=== PATIENT | male | born 1950 | race Caucasian/White ===

== ENCOUNTER → 2017-05-09 | Outpatient (CLI) | payer OTHER ==
--- NOTE | 2017-05-09 16:22 | DIAGNOSTIC IMAGING REPORT ---
RIGHT KNEE 2 VIEWS CLINICAL HISTORY: Right knee pain. FINDINGS: AP and lateral views of the right knee are obtained. No prior studies are available for comparison at the time of dictation. The skeletal structures are osteopenic. No fracture is seen. There is mild to moderate tricompartmental degenerative joint space narrowing, greatest in the medial compartment. There are patellar enthesophytes. No large joint effusion is seen. Prepatellar soft tissue edema is noted. There is atherosclerotic calcification of the popliteal artery. IMPRESSION: 1. Prepatellar soft tissue swelling with no acute bony abnormality seen in the right knee. 2. Osteopenia and degenerative change as above. Electronically signed by: Kevin Villavicencio M.D. 05/09/2017 4:21 PM Dictated Date/Time: 05/09/2017 4:20 PM
== END | disposition home or self-care (01) ==
LOC: C.RADBC 15:56
PROVIDERS: ATTEND Neuromusculoskeletal Medicine & OMM
DX: M25.561 Pain in right knee (principal)

== ENCOUNTER → 2017-05-09 | Outpatient (CLI) | payer OTHER ==
[~2017-05-09] VITALS: Ht 162.6 cm; Wt 67.2 kg
[2017-05-09 15:48] VITALS: BP 120/68; PULSE 80; Ht 162.6 cm; Wt 67.2 kg
== END | disposition home or self-care (01) ==
LOC: C.NEUR 13:50
PROVIDERS: ATTEND Physician Assistant Medical
DX: G47.33 Obstructive sleep apnea (adult) (pediatric) (principal)

== ENCOUNTER → 2017-05-10 | Outpatient (CLI) | payer OTHER ==
[2017-05-10 13:21] LABS: BASO % 0.4 %; BASO ABS # 0.02 K/uL (0-0.2); COMPLETE YES; EOS % 2.3 %; HEMATOCRIT 41.8 % (42-52); IG% 0.2 %; LYMPH % 32.6 %; LYMPH ABS # 1.83 K/uL (1.2-3.4); MEAN CORPUSCULAR HEMOGLOBIN 31.6 pg (25-34); MEAN CORPUSCULAR HGB CONC 31.6 g/dl (32-36); MEAN PLATELET VOLUME 10.4 fL (7.4-10.4); NEUT % 56.5 %; PLATELET COUNT 184 K/uL (130-400); RED BLOOD COUNT 4.18 M/uL (4.7-6.1); WHITE BLOOD COUNT 5.62 K/uL (4.8-10.8)
[2017-05-10 14:08] LABS: ALT/SGPT 24 U/L (12-78); BLOOD UREA NITROGEN 20 mg/dl (7-18); BUN/CREATININE RATIO 14.3 (10-20); CALCIUM 9.1 mg/dl (8.5-10.1); CARBON DIOXIDE 25 mmol/L (21-32); CHLORIDE 111 mmol/L (98-107); CHOLESTEROL 137 mg/dl (0-200); CREATININE 1.36 mg/dl (0.60-1.40); GLUCOSE 84 mg/dl (70-99); POTASSIUM 3.7 mmol/L (3.5-5.1); SODIUM 143 mmol/L (136-145)
[2017-05-10 14:11] LABS: ALB/GLOB RATIO 1.2 (0.9-2); ALKALINE PHOSPHATASE 65 U/L (45-117); AST/SGOT 19 U/L (15-37); CHOLESTEROL/HDL RATIO 1.7; HDL CHOLESTEROL 81 mg/dl; LDL CHOLESTEROL CALCULATED 34 mg/dl; TRIGLYCERIDES 109 mg/dl (0-150); VERY LOW DENSITY LIPOPROT CALC 22 mg/dl
== END | disposition home or self-care (01) ==
LOC: C.LABBC 11:08
PROVIDERS: ATTEND Neuromusculoskeletal Medicine & OMM
DX: Z00.00 Encounter for general adult medical examination without abnormal findings (principal); E78.5 Hyperlipidemia, unspecified; D64.9 Anemia, unspecified

== ENCOUNTER → 2017-05-16 | Outpatient (CLI) | payer OTHER ==
--- NOTE | 2017-05-16 15:44 | DIAGNOSTIC IMAGING REPORT ---
R HAND MIN 3 VIEWS ROUTINE CLINICAL HISTORY: M25.561 Acute pain of right hand 79.899 Long-term use of immunosuppressives COMPARISON: None. DISCUSSION: No acute fractures or dislocations are visualized. There are mild osteoarthritic changes. There are no erosive or destructive changes. IMPRESSION: 1. No acute fractures 2. Mild osteoarthritis 3. No evidence of erosive disease Electronically signed by: Marco Antonio Farris M.D. 05/16/2017 3:43 PM Dictated Date/Time: 05/16/2017 3:42 PM
--- NOTE | 2017-05-16 16:33 | DIAGNOSTIC IMAGING REPORT ---
L HAND MIN 3 VIEWS ROUTINE CLINICAL HISTORY: Long-term use of immunosuppressant medication. COMPARISON: None FINDINGS: Carpal bones are intact. A 7 mm lucent focus within the distal aspect of the middle phalanx of the left second digit is noted. This could reflect a subchondral cyst. No erosions are identified. There is moderate joint space narrowing with osteophytosis within multiple articulations of left hand, most pronounced within the left second digit DIP joint. IMPRESSION: 1. No acute fracture. 2. Moderate osteoarthritis within multiple articulations of the left hand, most pronounced within the left second digit DIP joint. 3. No radiographic evidence of an erosive arthropathy. Electronically signed by: Ramón Lorenzo M.D. 05/16/2017 4:32 PM Dictated Date/Time: 05/16/2017 4:29 PM
--- NOTE | 2017-05-17 09:27 | CODING QUERY MEDICAL NECESSITY ---
SUPPORTING DIAGNOSIS NEEDED : 1950 A supporting diagnosis is required for the test/procedure performed on this patient in order for us to be reimbursed by the patient's insurance. Please provide a supporting diagnosis for the following test/procedure listed below next to the test name along with your signature. *If there is no additional diagnosis for this patient that would support the following test/procedure please document that below next to the test/procedure. Test(s)/Procedure(s) that require a supporting diagnosis: DOS: 05/16/17 * HAND MIN 3 VIEWS, B/L DIAGNOSIS: Provider Signature: Date: Thank you Kely Osborn Health Information Management Once completed, please kindly fax back to [phone] For questions please call [phone]
== END | disposition home or self-care (01) ==
LOC: C.RAD1850 15:00
PROVIDERS: ATTEND Internal Medicine Rheumatology
DX: M25.561 Pain in right knee (principal); Z79.899 Other long term (current) drug therapy; M19.042 Primary osteoarthritis, left hand; M06.9 Rheumatoid arthritis, unspecified

== ENCOUNTER → 2017-05-30 | Outpatient (CLI) | payer OTHER ==
[~2017-05-30] MED LIST: ACET-1325; ADAL40KI; ATOR-22 PO; B-CO1CAP3; CARI350T28 PO; CHOL2000 PO; CHOL4POW4; COEN1CAP7; COEN400C5; CYCL0.052 OP; FLM4 PO; FOLI1TAB7 PO; GABA-113 PO; IBAN150T PO; LEUC10TA2 PO; LUTE20CA; METH0.4I2; MULT-663; OMEG10007 PO; OXYC1TAB3 PO; PARO1TAB27 PO; PRD/1 PO; PRLSR20 PO; VRPSR240
== END | disposition home or self-care (01) ==
LOC: C.LABBC 12:28
PROVIDERS: ATTEND Urology
DX: N40.0 Benign prostatic hyperplasia without lower urinary tract symptoms (principal)

== ENCOUNTER → 2017-06-05 | Outpatient (CLI) | payer OTHER ==
--- NOTE | 2017-06-06 06:12 | PAP/PSG TECHNICIAN REPORT ---
[facility] Stratigrapher Polysomnogram Report Study name: None Report date: 06/06/2017 Study date: 06/05/2017 Referring Physician: Amrita Solomon PA-C Name: NAV WAHL Interpreting Physician: Ravin Hallman M.D. Date of : 1950 Stratigrapher: Deonte Storey RPSGT. Sex: Male Age: 67 StudyType: PSG PAP Weight: 148 lbs Height: 67 years, Height 5' 4" BMI: 25.4 Medications: ATORVASTATIN CALCIUM 20 MG, CALTRATE 600 MG, CARISOPRODOL 350 MG, CHOLESTYRAMINE, CO Q-10 400 MG, DICLOFENAC SODIUM, FOLIC ACID 1 MG, GABAPENTIN 600 MG, HUMIRA 10 MG, OMEPRAZOLE 20 MG, OTREXUP 20 MG, OXYCODONE HCL 10 MG, PAROXETINE HCL 20 MG, PREDNISONE 20 MG, TAMSULOSIN HCL 0.4 MG, VERAPAMIL HCL ER 240 MG Patient History PATIENT HAS HISTORY OF IBS, ANXIETY, GLAUCOMA, RETINAL VASCILITIS, BPH AND ANEMIA. PATIENT HAD A HOME SLEEP STUDY DONE IN NOVEMBER OF 2016 THAT SHOWED MILD SLEEP APNEA WITH AN AHI OF 10.8/HR. HE CURRENTLY WEARS AUTO CPAP BUT HAS FELT THE TREATMENT HASN'T BEEN WORKING VERY WELL. HE IS HERE TODAY FOR A CPAP TITRATION. ESS = 3 RM 1 Parameters Monitored NPSG: E1-M2, E2-M1, Fp1-M2, Fp2-M1, F3-M2, F4-M2, F4-M1, C3-M2, C4-M2, C4-M1, O1-M2, O2-M2, O2-M1, T3-M2, T4-M1, P3-M2, P4-M1, CHIN1, CHIN2, HR, EKG, Legs, PFLOW, SNOR, FLOW, CFLOW, Tidal Volume, THOR, ABDO, SpO2, PLTH, CPRESS, ETCO2 Wave, ETCO2, pH Sleep Architecture Sleep Stages Time at Lights Off 11:07:47 PM STAGES Time (min.) TST (%) Time at Lights On 5:53:17 AM Wake 149.0 -- Total Recording Time (TRT) 406.00 min. N1 7.0 3 Total Sleep Period (TSP) 279.0 min. N2 245.0 96 Total Sleep Time (TST) 256.5min. N3 4.5 2 Awake Time 149.0 min. REM 0.0 0 Wake after Sleep Onset 22.5 min. Sleep Efficiency (SE) 63 % Sleep Onset Latency (FRANCISCO) 126.5 min. Number of Stage 1 Shifts None Awakenings 6 Stage Changes 25 Number of REM periods N/A REM 0.0 0 REM Latency NONE min. NREM 256.5 100 Body Position Analysis Supine Right Left Side Prone Vertical Total Sleep Time (min.) 53.8 256.5 0.0 256.50 0.0 0.0 Total Sleep Time (%) 0% 100% 0% 100 0% N/A% Total Sleep Time REM (min.) 0.0 0.0 0.0 None 0.0 0.0 Total Sleep Time NREM (min.) 0.0 256.5 0.0 None 0.0 0.0 Intermittent Wake (min.) 53.8 86.5 8.7 None 0.0 0.0 Total Sleep Period (%) 0% None None None None None Arousals Myoclonus (PLM) * Events Count Index Events Count Index Spontaneous 22 5 Events Awake (PLMW) 239 96.2 Respiratory 1 0.2 Events Asleep w/ Arousal (PLMA) 14 3.3 PLM 14 3 Events Asleep w/o Arousal (PLMS) 75 17.5 Snoring 12 3 Total Asleep 89 20.8 Total 49 11 Total 328 49 Respiratory Analysis * CA OA MA CH H RERA Total Count 1 0 0 0 12 0 13 Index 0.2 0.0 0.0 0 2.8 0 3.0 Mean Duration 13.8 0.0 0.0 0.00 17.7 0.0 17.4 Longest Duration 13.8 0.0 0.0 0.00 0.0 0.0 27.1 Respiratory Event Summary Total Supine ~Supine Right Left Prone REM NREM Apneas Count 1 N/A 1 1 N/A N/A N/A 1 Index 0.2 N/A 0 0.2 N/A N/A N/A 0 Hypopneas (4% Desat) Count 12 N/A 12 12 N/A N/A N/A 12 Index 2.8 N/A 3 2.8 N/A N/A N/A 2.8 Apneas & All Hypopneas Count 13 N/A 13 13 N/A N/A N/A 13 Index 3.0 N/A 3 3 N/A N/A N/A 3.0 Respiratory Events (Open Cut Examiner+All Hyp+RERA) Count 13 N/A 13 13 N/A N/A N/A 13 Index 3.0 N/A 3 3.0 N/A N/A N/A 3.0 Respiratory Related Arousal Count 1 N/A 1 1 N/A N/A N/A 1 Index 0.2 N/A 0 0 N/A N/A N/A 0 Snoring Analysis Supine Right Left Prone REM NREM Total Snore duration 6.3 min Snores count N/A 220 N/A N/A N/A 220 220 Snore mean duration 1.7 Sec Snores index N/A 51 N/A N/A N/A 51.5 51.5 TST with snoring (%) 2.4% Desaturation Event Summary: Minimum %SpO2 Event Count Mean/Min/Max Duration(sec.) Desaturation Index % Time In Bed > 90 49 27.6 / 5.3 / 70.1 7.9 96.1 86 - 90 3 15.3 / 12.8 / 17.3 13.5 3.5 81 - 85 0 N/A 0.0 0.3 76 - 80 0 N/A 0.0 0.0 71 - 75 1 11.0 / 11.0 / 11.0 293.9 0.1 66 - 70 0 N/A 0.0 0.0 61 - 65 0 N/A 0.0 0.0 56 - 60 0 N/A 0.0 0.0 51 - 55 0 N/A 0.0 0.0 < 50 0 N/A 0.0 0.0 Total REM NREM Awake <50% 0.0 min. 0.0 min. 0.0 min. 0.0 min. 51 - 60% 0.0 min. 0.0 min. 0.0 min. 0.0 min. 61 - 70% 0.0 min. 0.0 min. 0.0 min. 0.0 min. 71 - 80% 0.4 min. 0.0 min. 0.0 min. 0.4 min. 81 - 90% 14.6 min. 0.0 min. 1.2 min. 13.4 min. 91 - 100% 370.1 min. 0.0 min. 255.3 min. 114.8 min. Average 94 0 94 94 Minimum SpO2 73 N/A 89 73 Desaturation Event Index 7.4 0.0 3.0 14.9 # Desat. Events below 89% 9 N/A N/A 9 Time(%) with Saturation below 89% 1.2 0.0 0.0 1.2 Time(min.) with Saturation below 89% 4.7 0.0 0.0 4.7 Time (mins) REM (mins) NREM (mins) % of TST SpO2 Below 90% 2 N/A N2 0.1 SpO2 Below 88% 0 0 0 0 Heart Rate Analysis Min (bpm) Max (bpm) Average (bpm) Awake 34 300 60 NREM 54 79 63 REM N/A N/A N/A Overall 54 79 63 Supplemental O2 Values Minimum O2 level: None Value Start Time End Time Stratigrapher Comments Mr. Wahl slept in the right, left and supine positions. No cardiac arrhythmia noted. Leg movements noted. No bruxism noted. CPAP was initiated at +4 CMH2O and up-titrated to an optimal level of +5 CMH2O, which nearly eliminated all respiratory events and snoring. The patient brought in his own mask that was used during titration Mr. Wahl awoke to use the restroom 2 times during the night. Mr. Wahl stated I did not sleep as well as I do when I am in my own bed. The final report will be interpreted and signed by a sleep physician. The completed physician report will then be placed in the patient medical record. Therapy Event: Therapy (cm H20) 4 5 Total Time at Pressure (min.) 224.6 180.9 TST at Pressure (min.) 94.1 162.4 # Periods 1 1 Sleep Onset (min.) 126.5 0.0 REM Onset (min.) N/A N/A Sleep Efficiency % 41 89 Wakefulness (%) 58.1 10.2 Wakefulness (min.) 130.5 18.5 NREM 1 (%) 1.6 1.9 NREM 1 (min.) 3.5 3.5 NREM 2 (%) 38.3 87.8 NREM 2 (min.) 86.1 158.9 NREM 3 (%) 2.0 0.0 NREM 3 (min.) 4.5 0.0 REM (%) 0.0 0.0 REM (min.) 0.0 0.0 # Arousals 18 31 Arousal Index 11.5 11.5 # Snore 136 84 Snore Index 86.7 31.0 AHI 3.8 2.6 AHI Supine N/A N/A AHI Non-Supine 3.8 2.6 NREM AHI 3.8 2.6 REM AHI N/A N/A RDI 3.8 2.6 # Obstructive 0 0 # Central Ap 0 1 # Mixed 0 0 # Hypopneas 6 6 RERAS 0 0 Total Respiratory Events 6 7 Time Below SpO2 89.00% (min.) 0.0 0.0 Mean NREM SpO2 (%) 94 94 Mean REM SpO2 (%) N/A N/A Mean Sleep SpO2 (%) 94 94 Min NREM SpO2 (%) 89 90 Min REM SpO2 (%) N/A N/A Position Supine (min.) 0.0 0.0 Position Non-supine (min.) 94.1 162.4 LM Index Sleep 26.2 17.7 LM Index NREM 26.2 17.7 LM Index REM N/A N/A Mean Heart Rate (bpm) 68 60 Min Heart Rate (bpm) 57 54
--- NOTE | 2017-06-06 19:08 | POLYSOMNOGRAPH REPORT ---
CLINICAL DATA: A 67-year-old male with BMI of 25.4, who has mild sleep apnea with an AHI of 10.8 on a home sleep study. He has been on auto-CPAP but it has not been working well and his AHI is higher on auto-CPAP. He was sent for CPAP titration study. SLEEP ARCHITECTURE: Total sleep period was 279 minutes. Total sleep time was 256.5 minutes, all non-REM sleep. Sleep onset latency was delayed at 126.5 minutes. Sleep efficiency was reduced at 63%. Wake after sleep onset was 22.5 minutes. Sleep consisted of stage N1 3%, stage N2 95%, stage N3 2%. AROUSAL DATA: 49 arousals were recorded for an index of 11 per hour. PLM DATA: 89 limb movements during sleep were noted for an index of 20.8 per hour with arousal index of 3.3 per hour. RESPIRATORY DATA: AHI was 3. There was 1 central apneic episode, 13.8 seconds in duration. There were 12 hypopneic episodes with a mean duration of 17.7 seconds. OXIMETRY DATA: No hypoxemia was seen. Oxygen kd was 89% during non-REM sleep. Mean saturation was 94%. EKG: Heart rates ranged from 54-79 beats per minute. HEEL ATTACHER [employer]'S COMMENTS AND TREATMENT SUMMARY: The patient slept in the right, left and supine positions. CPAP started using the patient's own mask. He was titrated up to 5 cm water pressure. At his final pressure setting, he slept for 162.4 minutes with an AHI of 2.6. IMPRESSION: Mild obstructive sleep apnea/hypopnea, corrected with CPAP 5 cm water pressure. However, the patient did not reach REM sleep, so this pressure may not be totally adequate to correct all sleep apnea. RECOMMENDATIONS: The patient's CPAP could be set at 5 or 6 cm water pressure and he could be followed with compliance and effectiveness data in 30-90 days.
== END | disposition home or self-care (01) ==
LOC: C.NEUR 21:00
PROVIDERS: ATTEND Physician Assistant Medical
DX: G47.33 Obstructive sleep apnea (adult) (pediatric) (principal)

== ENCOUNTER → 2017-07-22 | Outpatient (CLI) | payer OTHER ==
[~2017-07-22] MED LIST changes: -FOLI1TAB7 PO; +FOLI1TAB8 PO
[2017-07-22 12:01] LABS: BASO % 0.9 %; BASO ABS # 0.04 K/uL (0-0.2); EOS % 3.8 %; EOS ABS # 0.18 K/uL (0-0.5); HEMATOCRIT 39.4 % (42-52); HEMOGLOBIN 12.6 g/dL (14.0-18.0); IG# 0.01 K/uL (0.00-0.02); LYMPH % 40.7 %; LYMPH ABS # 1.91 K/uL (1.2-3.4); MEAN CELL VOLUME 95.9 fL (80-100); MEAN CORPUSCULAR HEMOGLOBIN 30.7 pg (25-34); MEAN PLATELET VOLUME 9.6 fL (7.4-10.4); MONO % 8.5 %; NEUT % 45.9 %; NEUT ABS # 2.15 K/uL (1.4-6.5); PLATELET COUNT 177 K/uL (130-400); RED CELL DISTRIBUTION WIDTH CV 14.3 % (11.5-14.5); RED CELL DISTRIBUTION WIDTH SD 49.8 fL (36.4-46.3); WHITE BLOOD COUNT 4.69 K/uL (4.8-10.8)
== END | disposition home or self-care (01) ==
LOC: C.LAB 11:28
PROVIDERS: ATTEND Physician Assistant Medical
DX: Z01.812 Encounter for preprocedural laboratory examination (principal)

== ENCOUNTER → 2017-08-18 | Outpatient (CLI) | payer OTHER ==
[~2017-08-18] VITALS: Ht 162.6 cm; Wt 66.8 kg
[2017-08-18 16:05] VITALS: BP 122/73; PULSE 75; Ht 162.6 cm; Wt 66.8 kg
== END | disposition home or self-care (01) ==
LOC: C.NEUR 14:45
PROVIDERS: ATTEND Internal Medicine Pulmonary Disease
DX: G47.33 Obstructive sleep apnea (adult) (pediatric) (principal)

== ENCOUNTER → 2017-08-28 | Outpatient (CLI) | payer OTHER ==
[~2017-08-28] MED LIST changes: +CHOL100010 PO; +CHOL4POW4 PO; +COEN1CAP7 PO; +CYAN50005 PO; +DMX250 PO; +HMRIS40 INJ; +NRN600 PO; +TAMS0.4C38 PO; +TMPOPS15 OPB
[2017-08-28 11:11] LABS: BASO % 0.5 %; BASO ABS # 0.03 K/uL (0-0.2); EOS % 3.7 %; EOS ABS # 0.23 K/uL (0-0.5); HEMATOCRIT 40.2 % (42-52); HEMOGLOBIN 13.2 g/dL (14.0-18.0); IG# 0.01 K/uL (0.00-0.02); LYMPH % 26.8 %; LYMPH ABS # 1.68 K/uL (1.2-3.4); MEAN CELL VOLUME 90.1 fL (80-100); MEAN CORPUSCULAR HEMOGLOBIN 29.6 pg (25-34); MEAN CORPUSCULAR HGB CONC 32.8 g/dl (32-36); MEAN PLATELET VOLUME 9.9 fL (7.4-10.4); MONO % 13.9 %; MONO ABS # 0.87 K/uL (0.11-0.59); NEUT % 54.9 %; NEUT ABS # 3.44 K/uL (1.4-6.5); PLATELET COUNT 226 K/uL (130-400); RED CELL DISTRIBUTION WIDTH CV 14.7 % (11.5-14.5); RED CELL DISTRIBUTION WIDTH SD 47.9 fL (36.4-46.3); WHITE BLOOD COUNT 6.26 K/uL (4.8-10.8)
[2017-08-28 14:01] LABS: ALBUMIN 3.9 gm/dl (3.4-5.0); CREATININE 1.34 mg/dl (0.60-1.40)
[2017-08-28 14:05] LABS: ALKALINE PHOSPHATASE 90 U/L (45-117); ALT/SGPT 22 U/L (12-78); AST/SGOT 16 U/L (15-37); TOTAL PROTEIN 7.2 gm/dl (6.4-8.2)
== END | disposition home or self-care (01) ==
LOC: C.LABBC 09:14
PROVIDERS: ATTEND Internal Medicine Rheumatology
DX: M06.9 Rheumatoid arthritis, unspecified (principal); H35.069 Retinal vasculitis, unspecified eye; Z79.899 Other long term (current) drug therapy; M17.10 Unilateral primary osteoarthritis, unspecified knee

== ENCOUNTER 2017-08-29 13:52 | Emergency (ER) | payer OTHER ==
[~2017-08-29] VITALS: Ht 162.6 cm; Wt 62.0 kg
[~2017-08-29 13:52] MED LIST changes: -CHOL100010 PO; -CHOL4POW4 PO; -COEN1CAP7 PO; -CYAN50005 PO; -DMX250 PO; -HMRIS40 INJ; -NRN600 PO; -TAMS0.4C38 PO; -TMPOPS15 OPB
[2017-08-29 13:58] VITALS: TEMP 37.2; Ht 162.6 cm; Wt 62.0 kg
[2017-08-29] MEDS ORDERED: CARI350T28 PO (15:29)
[2017-08-29] MEDS ORDERED: PRLSR20 PO (15:29)
[2017-08-29] MEDS ORDERED: NRN600 PO (15:29)
[2017-08-29] MEDS ORDERED: COEN1CAP7 PO (15:29)
[2017-08-29] MEDS ORDERED: PARO1TAB27 PO (15:29)
[2017-08-29] MEDS ORDERED: CYAN50005 PO (15:29)
[2017-08-29] MEDS ORDERED: CHOL100010 PO (15:29)
[2017-08-29] MEDS ORDERED: CHOL4POW4 PO (15:29)
[2017-08-29] MEDS ORDERED: IBAN150T PO (15:29)
[2017-08-29] MEDS ORDERED: TMPOPS15 OPB (15:29)
[2017-08-29] MEDS ORDERED: HMRIS40 INJ (15:29)
[2017-08-29] MEDS ORDERED: TAMS0.4C38 PO (15:29)
[2017-08-29] MEDS ORDERED: ATOR-22 PO (15:29)
[2017-08-29] MEDS ORDERED: DMX250 PO (15:29)
[2017-08-29] MEDS ORDERED: OMEG10007 PO (15:29)
[2017-08-29] MEDS ORDERED: FOLI1TAB8 PO (15:29)
[2017-08-29 15:31] LABS: HEMATOCRIT 38.3 % (42-52); HEMOGLOBIN 12.6 g/dL (14.0-18.0); MEAN CELL VOLUME 89.3 fL (80-100); MEAN CORPUSCULAR HEMOGLOBIN 29.4 pg (25-34); MEAN CORPUSCULAR HGB CONC 32.9 g/dl (32-36); MEAN PLATELET VOLUME 9.2 fL (7.4-10.4); PLATELET COUNT 198 K/uL (130-400); RED CELL DISTRIBUTION WIDTH CV 14.8 % (11.5-14.5); RED CELL DISTRIBUTION WIDTH SD 48.1 fL (36.4-46.3); WHITE BLOOD COUNT 6.16 K/uL (4.8-10.8)
--- NOTE | 2017-08-29 15:45 | DIAGNOSTIC IMAGING REPORT ---
HEAD WITHOUT CONTRAST (CT) CLINICAL HISTORY: 67 years-old Male with head pressure eval for mass. Acute headache TECHNIQUE: Multiple axial CT images of the head were obtained without contrast. A dose lowering technique was utilized adhering to the principles of ALARA. CT DOSE: 537.48 mGy.cm COMPARISON: None. FINDINGS: No acute intracranial hemorrhage, midline shift, intracranial mass, hydrocephalus, territorial ischemia or abnormal extra-axial collection. The calvarium is intact. The paranasal sinuses, mastoid air cells, and middle ear cavities are clear. Orbits appear unremarkable. IMPRESSION: No acute intracranial abnormality. The above report was generated using voice recognition software. It may contain grammatical, syntax or spelling errors. Electronically signed by: Karan Winston M.D. 08/29/2017 3:44 PM Dictated Date/Time: 08/29/2017 3:42 PM
[2017-08-29 15:49] LABS: PTT PATIENT 25.3 SECONDS (21.0-31.0)
[2017-08-29 15:56] LABS: ALBUMIN 3.7 gm/dl (3.4-5.0); CALCIUM 8.7 mg/dl (8.5-10.1); CREATININE 1.2 mg/dl (0.60-1.40); POTASSIUM 3.7 mmol/L (3.5-5.1)
[2017-08-29 16:07] LABS: TOTAL PROTEIN 7.3 gm/dl (6.4-8.2)
[2017-08-29 16:10] LABS: BASO % 0.5 %; BASO ABS # 0.03 K/uL (0-0.2); EOS % 5.2 %; EOS ABS # 0.32 K/uL (0-0.5); IG# 0.01 K/uL (0.00-0.02); LYMPH % 36.2 %; LYMPH ABS # 2.23 K/uL (1.2-3.4); MONO % 9.6 %; MONO ABS # 0.59 K/uL (0.11-0.59); NEUT % 48.3 %; NEUT ABS # 2.98 K/uL (1.4-6.5)
[2017-08-29 17:08] VITALS: BP 131/69; PULSE 62; O2SAT 96
--- NOTE | 2017-08-29 19:23 | EMERGENCY ROOM VISIT NOTE ---
History Report prepared by Yvrose: Angelo Brown Under the Supervision of: Dr. Martin Lay M.D. First contact with patient: 14:14 Chief Complaint: HEAD PAIN Stated Complaint: DEPRESSED AND BLOOD PRESSURE SPIKES History of Present Illness The patient is a 67 year old male who presents to the Emergency Room with complaints of constant head "pressure" beginning yesterday. He states "it feels like my blood pressure is high and head is going to explode". The patient's symptoms began gradually. He is concerned that his blood pressure may be high. He states "I feel like I am crawling out of my skin", which is why he believes his blood pressure may be high. The patient is not diagnosed with hypertension. He did not take his blood pressure today. He denies visual changes, chest pain, SOB, vomiting, abdominal pain, diarrhea, black or bloody stool, or new urinary symptoms. He has chronic increased urinary frequency and is on Flomax for BPH. The patient notes that he is on Acetazolamide for Glaucoma and feels this may be related to his headache. He states that he missed three doses of the Acetazolamide over the weekend due to not picking up a new prescription. He took Soma prior to arrival today which has improved his head pressure. The patient notes that he also feels "depressed and hyper" as well. He has a history of anxiety, but has no history of depression. He denies suicidal ideation or homicidal ideation. The patient states that he has felt depressed since he missed the dose of Acetazolamide three days ago and feels this is the cause. His depression has worsened over the past three days. He denies any specific triggers to his depression. He notes that he was on chronic opioids for occipital neuralgia and chronic back pain until two months ago. Additionally , the patient notes that he had a full body tremor two weeks ago (August 16) which was associated with difficulty speaking. He had an EEG for this four days ago, and is scheduled for a brain MRI in three days. He is seen by Dr. Merritt of neurology. He states that he has had tremors in his hands over the past several years, but has not had full body tremors. He did not lose consciousness. Source of History: patient Onset: Yesterday Position: head Quality: pressure Timing: constant Modifying Factors (Relieving): other (Soma) Associated Symptoms: No chest pain, No SOB, No abdominal pain, No melena, No hematochezia, No diarrhea, No urinary symptoms (new) Note: The patient denies visual changes. Review of Systems See HPI for pertinent positives & negatives. A total of 10 systems reviewed and were otherwise negative. Past Medical & Surgical Medical Problems: (1) Anxiety (2) Chronic back pain (3) Occipital neuralgia Family History No pertinent family history stated. Social History Smoking Status: Never Smoker Marital Status: Occupation Status: retired Current/Historical Medications Scheduled Acetazolamide (Acetazolamide), 250 MG PO DAILY Adalimumab (Humira Pen), 1 DOSE INJ WK Atorvastatin (Lipitor), 20 MG PO DAILY Cholecalciferol (Vitamin D), 1 TAB PO DAILY Cholestyramine (Cholestyramine), 1 DOSE PO DAILY Coenzyme Q10 (Ubidecarenone) (Coq10), 600 MG PO DAILY Cyanocobalamin (Vitamin B-12), 5,000 MCG PO DAILY Fish Oil ([place]-3), 1 CAP PO DAILY Folic Acid (Folvite), 1 MG PO DAILY Gabapentin (Gabapentin), 600 MG PO TID Ibandronate Sodium (Boniva), 150 MG PO MONTHLY Omeprazole (Prilosec), 20 MG PO BID Paroxetine (Paxil), 20 MG PO DAILY Tamsulosin Hcl (Flomax), 0.8 MG PO HS Timolol Maleate (Timolol 0.5% Oph Soln 15 Ml), 1 DROP OPB QAM Scheduled PRN Carisoprodol (Soma), 350 MG PO TID PRN for Muscle Spasms Allergies Coded Allergies: Doxycycline (Unverified Allergy, Unknown, GI SYMPTOMS, 08/29/17) NSAIDs (Unverified Adverse Reaction, Unknown, GI SYMPTOMS, 08/29/17) Physical Exam Vital Signs Date Time Temp Pulse Resp B/P (MAP) Pulse Ox O2 Delivery O2 Flow Rate FiO2 08/29/17 17:08 62 15 131/69 96 08/29/17 16:17 60 17 155/80 96 Room Air 08/29/17 15:09 59 20 133/73 99 Room Air 08/29/17 14:25 65 08/29/17 13:58 37.2 73 16 130/76 97 Room Air Physical Exam Constitutional: Vital signs reviewed. Eyes: Pupils are equal round reactive to light. Conjunctiva are noninjected. Intraocular pressure is 15 in the left and 14 on the right. ENT: Pharynx is clear without erythema or exudate. Mucous membranes are moist. Neck supple without meningeal signs. Respiratory: Clear to auscultation bilaterally. Breath sounds are equal bilaterally. Cardiovascular: Regular rate and rhythm. No rubs or gallops. GI: Soft, nondistended and nontender. Bowel sounds are present. Musculoskeletal: No peripheral edema. No lower extremity tenderness. Integumentary: No cyanosis. Neurological: The patient is awake and alert. Cranial nerves II-XII are intact. Motor is 5 out of 5 all extremities. Sensation is intact to light touch all extremities. Normal speech. No pronator drift. Psychiatric: Normal affect. He is not manic. He does not appear depressed. Medical Decision & Procedures ER Provider Diagnostic Interpretation: Radiology results as stated below per my review and the radiologist's interpretation: HEAD WITHOUT CONTRAST (CT) FINDINGS: No acute intracranial hemorrhage, midline shift, intracranial mass, hydrocephalus, territorial ischemia or abnormal extra-axial collection. The calvarium is intact. The paranasal sinuses, mastoid air cells, and middle ear cavities are clear. Orbits appear unremarkable. IMPRESSION: No acute intracranial abnormality. The above report was generated using voice recognition software. It may contain grammatical, syntax or spelling errors. Electronically signed by: Karan Winston M.D. 08/29/2017 3:44 PM Laboratory Results 08/29/17 15:09 Red Blood Count 4.29, Mean Corpuscular Volume 89.3, Mean Corpuscular Hemoglobin 29.4, Mean Corpuscular Hemoglobin Concent 32.9, Mean Platelet Volume 9.2, Neutrophils (%) (Auto) 48.3, Lymphocytes (%) (Auto) 36.2, Monocytes (%) (Auto) 9.6, Eosinophils (%) (Auto) 5.2, Basophils (%) (Auto) 0.5, Neutrophils # (Auto) 2.98, Lymphocytes # (Auto) 2.23, Monocytes # (Auto) 0.59, Eosinophils # (Auto) 0.32, Basophils # (Auto) 0.03 08/29/17 15:09 Test 08/29/17 15:09 White Blood Count 6.16 K/uL (4.8-10.8) Red Blood Count 4.29 M/uL (4.7-6.1) Hemoglobin 12.6 g/dL (14.0-18.0) Hematocrit 38.3 % (42-52) Mean Corpuscular Volume 89.3 fL (80-100) Mean Corpuscular Hemoglobin 29.4 pg (25-34) Mean Corpuscular Hemoglobin Concent 32.9 g/dl (32-36) Platelet Count 198 K/uL (130-400) Mean Platelet Volume 9.2 fL (7.4-10.4) Neutrophils (%) (Auto) 48.3 % Lymphocytes (%) (Auto) 36.2 % Monocytes (%) (Auto) 9.6 % Eosinophils (%) (Auto) 5.2 % Basophils (%) (Auto) 0.5 % Neutrophils # (Auto) 2.98 K/uL (1.4-6.5) Lymphocytes # (Auto) 2.23 K/uL (1.2-3.4) Monocytes # (Auto) 0.59 K/uL (0.11-0.59) Eosinophils # (Auto) 0.32 K/uL (0-0.5) Basophils # (Auto) 0.03 K/uL (0-0.2) RDW Standard Deviation 48.1 fL (36.4-46.3) RDW Coefficient of Variation 14.8 % (11.5-14.5) Immature Granulocyte % (Auto) 0.2 % Immature Granulocyte # (Auto) 0.01 K/uL (0.00-0.02) Prothrombin Time 10.6 SECONDS (9.0-12.0) Prothromb Time International Ratio 1.0 (0.9-1.1) Activated Partial Thromboplast Time 25.3 SECONDS (21.0-31.0) Partial Thromboplastin Ratio 1.0 Anion Gap 8.0 mmol/L (3-11) Est Creatinine Clear Calc Drug Dose 48.7 ml/min Estimated GFR () 71.1 Estimated GFR (Non- 61.3 BUN/Creatinine Ratio 13.7 (10-20) Calcium Level 8.7 mg/dl (8.5-10.1) Total Bilirubin 0.4 mg/dl (0.2-1) Direct Bilirubin 0.1 mg/dl (0-0.2) Aspartate Amino Transf (AST/SGOT) 18 U/L (15-37) Alanine Aminotransferase (ALT/SGPT) 24 U/L (12-78) Alkaline Phosphatase 86 U/L (45-117) Total Protein 7.3 gm/dl (6.4-8.2) Albumin 3.7 gm/dl (3.4-5.0) Lipase 471 U/L (73-393) Thyroid Stimulating Hormone (TSH) 0.949 uIu/ml (0.300-4.500) Free Thyroxine 0.97 ng/dl (0.80-1.60) Salicylates Level < 1.7 mg/dl (2.8-20) Acetaminophen Level < 2 ug/ml (10-30) Laboratory results as reviewed by me. ED Course 1416: The patient was evaluated in room B10. A complete history and physical exam was performed. 1615: I spoke with the patient about his results. His head pressure has improved , but he still feels depressed, though not suicidal. 1632: Upon reevaluation, the patient appeared to have improvement of his symptoms. His blood pressure is 122/67. I discussed tonight's findings with him. He verbalized agreement of the treatment plan. The patient was discharged home. Medical Decision This is a 67-year-old male who presents with head pressure. Differential diagnosis includes intracranial mass, intracranial hemorrhage, migraine headache , metabolic derangement, mood disorder, glaucoma. I did perform a limited focused review of portions of the patient's old chart on the electronic medical record. The patient has had no recent pertinent visits to this hospital. I did evaluate the patient as noted above. The patient is presenting today because he had head pressure since last night and felt like his blood pressure was very elevated. He did not take his blood pressure at home. His blood pressure here is mildly elevated. He also states his headache is improved since taking soma earlier today. He is neurologically intact. He does state that he feels depressed and hyper at the same time. He denies suicidal or homicidal ideation. He believes his symptoms may be related to not having taking his Diamox over the weekend. He does have a history of glaucoma and I did check his intraocular pressures which were normal. He denies having any eye pain or any new visual complaints. IV access was established. The patient was placed on a continuous site monitor. I did order and review the patient' s blood work as noted in the electronic medical record. He is mildly anemic but his hemoglobin is stable. He also has a slightly elevated lipase of unclear significance. He denies any abdominal pain. I did order a CT of the head. I did review the images myself as well as the radiology report as described above. There is no evidence of acute intracranial abnormality. I did reassess the patient. His blood pressure is improving spontaneously. He states his headache is also better. I did discuss the test results with him. He was advised to follow-up closely with his doctor for repeat of his lipase. I doubt that this is of any clinical significance at this time but I did recommend having it rechecked. I did discuss the case with Dr. Merritt who is his neurologist. She stated that the EEG did not show any seizure activities. She recommended that he follow-up in the office and go to his scheduled appointment for his MRI. The patient was happy with this plan and discharged in good condition. He was advised to follow-up with a counselor as well for his depression. Medication Reconcilliation Current Medication List: was personally reviewed by me Blood Pressure Screening Patient's blood pressure: Elevated blood pressure Blood pressure disposition: Referred to PCP Consults Time Called: 1625 Consulting Physician: Dr. Gamboa - Neurology Returned Call: [address] Gamboa of Neurology. She states that the patient's EEG this week did not show seizure-activity. She recommends follow up in office, and to continue with the outpatient MRI. Impression Primary Impression: Acute headache Additional Impression: Mood disorder Scribe Attestation The scribe's documentation has been prepared under my direct and personally reviewed by me in its entirety. I confirm that the note above accurately reflects all work, treatment, procedures, and medical decision making performed by me. Departure Information Dispostion Home / Self-Care Referrals Ambreen Sr D.O. (PCP) Forms HOME CARE DOCUMENTATION FORM, IMPORTANT VISIT INFORMATION, WORK / SCHOOL INSTRUCTIONS Patient Instructions ED Depression, Headache Pain, My [facility] Additional Instructions You have been examined and treated today on an emergency basis only. This is not a substitute for, or an effort to provide, complete comprehensive medical care. It is impossible to recognize and treat all injuries or illnesses in a single emergency department visit. It is therefore important that you follow up closely with your physician. Call as soon as possible for an appointment. Return for worsening symptoms or if you develop fever, numbness or weakness on one side of your body, difficulties with your speech or walking, thoughts of hurting yourself or others or any other concerning symptoms. Problem Qualifiers Primary Impression: Acute headache Headache type: unspecified Intractability: not intractable Qualified Codes : R51 - Headache
== END 2017-08-29 17:08 | disposition home or self-care (01) ==
LOC: C.EDB 13:54
DX: R51 Headache (principal); F39 Unspecified mood [affective] disorder; F41.9 Anxiety disorder, unspecified; G89.29 Other chronic pain; M54.81 Occipital neuralgia; Z79.899 Other long term (current) drug therapy; Z88.1 Allergy status to other antibiotic agents; Z88.8 Allergy status to other drugs, medicaments and biological substances

== ENCOUNTER → 2017-09-29 | Outpatient (CLI) | payer OTHER ==
[~2017-09-29] MED LIST changes: -ACET-1325; -ADAL40KI; -B-CO1CAP3; +CHOL100010 PO; -CHOL2000 PO; -CHOL4POW4; +CHOL4POW4 PO; -COEN1CAP7; +COEN1CAP7 PO; -COEN400C5; +CYAN50005 PO; -CYCL0.052 OP; +DMX250 PO; -FLM4 PO; -GABA-113 PO; +HMRIS40 INJ; -LEUC10TA2 PO; -LUTE20CA; -METH0.4I2; -MULT-663; +NRN600 PO; -OXYC1TAB3 PO; -PRD/1 PO; +TAMS0.4C38 PO; +TMPOPS15 OPB; +VERA240T20 PO; -VRPSR240
[2017-09-29 16:41] LABS: BASO % 0.5 %; BASO ABS # 0.03 K/uL (0-0.2); EOS % 4.3 %; EOS ABS # 0.25 K/uL (0-0.5); HEMATOCRIT 41.3 % (42-52); HEMOGLOBIN 13.1 g/dL (14.0-18.0); IG# 0.01 K/uL (0.00-0.02); LYMPH % 31.7 %; LYMPH ABS # 1.85 K/uL (1.2-3.4); MEAN CELL VOLUME 94.1 fL (80-100); MEAN CORPUSCULAR HEMOGLOBIN 29.8 pg (25-34); MEAN CORPUSCULAR HGB CONC 31.7 g/dl (32-36); MEAN PLATELET VOLUME 10.1 fL (7.4-10.4); MONO % 9.8 %; MONO ABS # 0.57 K/uL (0.11-0.59); NEUT % 53.5 %; NEUT ABS # 3.13 K/uL (1.4-6.5); PLATELET COUNT 182 K/uL (130-400); RED CELL DISTRIBUTION WIDTH CV 16.2 % (11.5-14.5); WHITE BLOOD COUNT 5.84 K/uL (4.8-10.8)
== END | disposition home or self-care (01) ==
LOC: C.LABBC 12:55
PROVIDERS: ATTEND Physician Assistant
DX: Z01.812 Encounter for preprocedural laboratory examination (principal); Z90.89 Acquired absence of other organs

== ENCOUNTER → 2017-11-21 | Outpatient (CLI) | payer OTHER ==
[~2017-11-21] MED LIST changes: +DULO60CA44 PO; +trazodone PO
[2017-11-21 11:39] LABS: BASO % 0.6 %; BASO ABS # 0.05 K/uL (0-0.2); EOS % 9.2 %; EOS ABS # 0.73 K/uL (0-0.5); HEMATOCRIT 43.8 % (42-52); HEMOGLOBIN 14.2 g/dL (14.0-18.0); LYMPH % 27.9 %; LYMPH ABS # 2.21 K/uL (1.2-3.4); MEAN CELL VOLUME 93.2 fL (80-100); MEAN CORPUSCULAR HEMOGLOBIN 30.2 pg (25-34); MEAN CORPUSCULAR HGB CONC 32.4 g/dl (32-36); MEAN PLATELET VOLUME 9.9 fL (7.4-10.4); MONO % 6.8 %; MONO ABS # 0.54 K/uL (0.11-0.59); NEUT % 55.5 %; NEUT ABS # 4.39 K/uL (1.4-6.5); PLATELET COUNT 140 K/uL (130-400); RED CELL DISTRIBUTION WIDTH CV 15.7 % (11.5-14.5); RED CELL DISTRIBUTION WIDTH SD 53.9 fL (36.4-46.3); WHITE BLOOD COUNT 7.92 K/uL (4.8-10.8)
== END | disposition home or self-care (01) ==
LOC: C.LABBC 08:50
PROVIDERS: ATTEND Anesthesiology
DX: Z01.812 Encounter for preprocedural laboratory examination (principal)

== ENCOUNTER 2020-12-27 10:19 | Inpatient (IN) ==
--- NOTE | 2020-12-27 11:04 | Emergency Department Note ---
Impression & Plan Acute pyelonephritis, Sepsis ED Provider Note NAME: NAV BLEDSOE AGE: 70 SEX: M : 1950 ARRIVES VIA: Ambulance INFORMANT: Patient, ED PROVIDER(S): Naif Grover MD Chief Complaint: Fever, confusion HPI: The patient does present with concern for pain and low-grade fever. The patient did have a recent left ureteroscopy, ureteral dilation and extraction of the stone with placement of a left-sided ureteral stent on 12/10 w/ Dr. Montez. Patient also had a possible prostatic abscess versus cyst which was treated at that time as well. Patient did have a [address] [place] catheter in place which was removed at a follow-up visit on December 24 w/ Dr. Armstrong. The patient's stated that all of his symptoms developed within the last 24 to 48 hours. The patient has had increasing confusion and had felt warm. Patient did have a temperature of 101. Patient has not had any recent falls. Patient did have some weakness this morning. This was reportedly generalized. Patient does have some lower back discomfort but denies any saddle anesthesia. No recent falls or trauma. Patient is not on any current outpatient antibiotics. Patient denies any abdominal pain nausea or vomiting. The patient denies any cough. The patient has been vaccinated for Covid. ROS: See HPI for pertinent positives and negatives. A total of 10 systems were reviewed and otherwise negative. Past medical history: See below Surgical history: See below Social history: See below Physical Exam: GENERAL: Ill in appearance, wearing a mask. NAD, non-toxic. EYE EXAM: Normal conjunctiva. PERRL, no anisocoria and EOM's grossly intact w/o pain.= NECK: Supple, no nuchal rigidity, no adenopathy, non-tender. No signs of menin gismus. LUNGS: Clear to auscultation. Normal chest wall mechanics. HEART: Tachycardic and regular, no MRG. ABDOMEN: Abdomen soft, non-tender, normo-active bowel sounds, no masses, no rebound or guarding. BACK: No CVA TTP. SKIN: No rashes and no bruising. UPPER EXTREMITIES: Upper extremities are grossly normal. LOWER EXTREMITIES: Grossly normal, no edema. NEURO EXAM: A&O x3, cranial nerves II-XII grossly intact, normal speech, moves all 4 extremities on command w/o issue. Differential diagnoses: Sepsis, UTI, pneumonia, metabolic, electrolyte abnormalities, cardiac sources, intracerebral event, toxicologic, neurologic, as well as other pathologies. Course: Patient was seen and evaluated the bedside. Full history physical exam was performed. EKG interpreted by me Normal sinus rhythm, rate of 99, normal intervals, left axis deviation, no obvious ST changes or T WI. Imaging Studies: See below Cardiac monitoring: An order was placed for continuous cardiac monitoring. The monitor shows a rate of 99 with sinus rhythm. MDM: Patient was seen due to concern for fever and confusion. The patient does have a recent ureteral stent history. Blood work is obtained along with CT abdomen pelvis. The patient was ordered Vanco given the recent instrumentation and ciprofloxacin. The Cipro was ordered p.o. after discussion with the pharmacist as they would likely be equally efficacious p.o. versus IV in order to get both antibiotics and quickly. Patient does have a white count of 26. The patient's kidney function is unremarkable. Urinalysis shows the possibility of infection given the bacteria. Covid negative. CT abdomen pelvis does show pyelonephritis. Given this with the fever believe the patient would benefit from inpatient treatment at this time. I did speak to the on-call hospitalist NIKKI Jain and the patient was admitted to the medicine service by Dr. Mariluz mcmahon. Past Med/Surg History Medical History Anxiety BPH loc w urin obs/LUTS Cervical facet syndrome Cervicalgia Chronic back pain GERD (gastroesophageal reflux disease) Well controlled and stable GI bleed 2006 Glaucoma Takes Diamox Hypercholesterolemia Impotence Kidney stones Macular edema Nephrolithiasis Occipital neuralgia Orchitis and epididymitis Retinal vasculitis Rheumatoid arthritis "inactive" per patient Surgical History H/O cataract removal with insertion of prosthetic lens History of abdominal surgery fatty tumor removal below left rib History of bone marrow biopsy History of colonoscopy History of cystoscopy History of detached retina repair History of endoscopic sinus surgery begning cyst bx History of esophagogastroduodenoscopy (EGD) History of left breast biopsy enlarged breast tissue History of surgery left eye shunt History of tonsillectomy and adenoidectomy S/P TURP (transurethral resection of prostate) Family History Father Cancer Mother Cancer Stroke Social History Smoking Status: Never smoker Second Hand Exposure: No; Hx Alcohol Use: Yes Hx Substance Use: No Preferred Language: Divehi Communication Ability: Effective 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 Beliefs That Will Affect Care: None marital status: Current Living Situation: Spouse current occupational status: retired Feels Safe at Home: No Is there a partner from a previous relationship who is making you feel unsafe now?: No Safety Concerns: Feels Safe At This Time Assistive Devices: Glasses Allergies Allergies Allergy/AdvReac Type Severity Reaction Status Date / Time doxycycline Allergy Mild Vomiting Verified 12/27/20 12:59 trazodone AdvReac Intermediate DISORIENTED Verified 12/27/20 12:59 NSAIDS (Non-Steroidal AdvReac Mild had Verified 12/27/20 12:59 Anti-Inflamma bleeding ulcer Home Meds Home Medications Medication Instructions Recorded Confirmed acetazolamide 250 mg tablet 250 mg PO QAM 03/26/18 12/27/20 atorvastatin 20 mg tablet 20 mg PO HS 03/26/18 12/27/20 cholestyramine (with sugar) 4 gram 4 gm PO HS gm 03/26/18 12/27/20 oral powder cyanocobalamin (vitamin B-12) 5,000 mcg PO QAM 03/26/18 12/27/20 5,000 mcg disintegrating tablet folic acid 1 mg tablet 1 mg PO QAM 03/26/18 12/27/20 dorzolamide 22.3 mg-timolol 6.8 1 drops OP BID 08/06/18 12/27/20 mg/mL eye drops gabapentin 600 mg tablet 600 mg PO BID tab 08/06/18 12/27/20 zolpidem [Ambien] 10 mg PO HS 11/02/18 12/27/20 baclofen 10 mg tablet 10 mg PO TID tab 04/22/20 12/27/20 brimonidine 0.1 % eye drops 1 drp OPL TID 04/22/20 12/27/20 cholecalciferol (vitamin D3) 25 4,000 unit PO QAM cap 04/22/20 12/27/20 mcg (1,000 unit) capsule coenzyme Q10 200 mg capsule 200 mg PO QAM cap 04/22/20 12/27/20 duloxetine 60 mg capsule,delayed 60 mg PO QAM cap 04/22/20 12/27/20 release ferrous sulfate 325 mg (65 mg 325 mg PO QAM 04/22/20 12/27/20 iron) tablet vitamin E (dl, acetate) 45 mg (100 450 unit PO QAM cap 04/22/20 12/27/20 unit) capsule calcium citrate-vitamin D3 1 tab PO QAM 12/01/20 12/27/20 dutasteride 0.5 mg PO QAM 12/01/20 12/27/20 sildenafil 20 mg PO DAILY PRN 12/01/20 12/27/20 tamsulosin [Flomax] 0.8 mg PO QPM 12/01/20 12/27/20 vitamin B complex 1 cap PO QAM 12/01/20 12/27/20 duloxetine 30 mg PO QAM 12/27/20 12/27/20 fish,bora,flax oils-om3,6,9no1 1 cap PO QAM 12/27/20 12/27/20 [[place] 3-6-9] verapamil 120 mg PO QAM 12/27/20 12/27/20 Previous Rx's Medication Instructions Recorded phenazopyridine 200 mg tablet 200 mg PO TID PRN 3 Days #9 tab 10/14/20 oxybutynin chloride 5 mg PO Q8H PRN #20 tab 12/10/20 oxycodone-acetaminophen 5 mg-325 1 tab PO Q8H PRN #7 tab 12/16/20 mg tablet Results & Data (ED) Vital Signs Vital Signs - 24 hr 12/27/20 10:27 12/27/20 10:28 12/27/20 10:30 Temperature Temperature Source Pulse Rate 99 H 99 H 98 H Pulse Rate from SpO2 Sensor 101 H 98 H Pulse Rhythm Pulse Strength Respiratory Rate 27 H 22 25 H Respiratory Effort / Characteristics Respiratory Depth Respiratory Pattern Blood Pressure 149/64 H Blood Pressure Mean 92 Blood Pressure Position Pulse Oximetry 94 94 Oxygen Delivery Method Sepsis Recent Fever Within 48 Hours Sepsis New/Unexplained Change in Mental Status Sepsis Action Taken by Nursing 12/27/20 10:50 12/27/20 11:00 12/27/20 11:20 Temperature 37.7 C H Temperature Source Oral Pulse Rate 99 H 93 H Pulse Rate from SpO2 Sensor Pulse Rhythm Regular Pulse Strength Normal Respiratory Rate 21 21 Respiratory Effort / Characteristics Non-Labored Spontaneous Respiratory Depth Normal Respiratory Pattern Regular Blood Pressure 149/64 H Blood Pressure Mean 92 Blood Pressure Position Lying Pulse Oximetry 99 Oxygen Delivery Method Room Air Room Air Sepsis Recent Fever Within 48 Hours Yes Sepsis New/Unexplained Change in Mental Status Yes Sepsis Action Taken by Nursing No Action Required 12/27/20 11:30 12/27/20 11:48 12/27/20 12:00 Temperature Temperature Source Pulse Rate 92 H 99 H Pulse Rate from SpO2 Sensor 99 H 113 H Pulse Rhythm Pulse Strength Respiratory Rate 21 20 Respiratory Effort / Characteristics Respiratory Depth Respiratory Pattern Blood Pressure 152/73 H Blood Pressure Mean 99 Blood Pressure Position Pulse Oximetry 96 92 Oxygen Delivery Method Sepsis Recent Fever Within 48 Hours Sepsis New/Unexplained Change in Mental Status Sepsis Action Taken by Nursing 12/27/20 12:01 12/27/20 12:30 12/27/20 13:00 Temperature Temperature Source Pulse Rate 114 H 105 H 101 H Pulse Rate from SpO2 Sensor 111 H 105 H 101 H Pulse Rhythm Pulse Strength Respiratory Rate 27 H 21 24 Respiratory Effort / Characteristics Respiratory Depth Respiratory Pattern Blood Pressure 159/72 H 165/71 H 118/63 Blood Pressure Mean 101 102 81 Blood Pressure Position Pulse Oximetry 94 94 94 Oxygen Delivery Method Sepsis Recent Fever Within 48 Hours Sepsis New/Unexplained Change in Mental Status Sepsis Action Taken by [facility] Medications Current Medication List: was personally reviewed by me Laboratory Data Attestation: I reviewed the patient's lab results. Result diagrams: 12/27/20 10:45 12/27/20 10:45 Lab Results 12/27/20 12/27/20 12/27/20 Range/Units 10:45 10:45 10:45 WBC 26.22 H (4.8-10.8) K/uL RBC 3.85 L (4.7-6.1) M/uL Hgb 11.9 L (14.0-18.0) g/dL Hct 36.4 L (42-52) % MCV 94.5 (80-100) fL MCH 30.9 (25-34) pg MCHC 32.7 (32-36) g/dL RDW Std Deviation 51.8 H (36.4-46.3) fL RDW Coeff of Trung 14.9 H (11.5-14.5) % Plt Count 218 (130-400) K/uL MPV 9.4 (7.4-10.4) fL Immature Gran % (Auto) 0.8 % Neut % (Auto) 92.6 % Lymph % (Auto) 1.7 % [place] % (Auto) 4.8 % Eos % (Auto) 0.0 % Baso % (Auto) 0.1 % Neut # (Auto) 24.27 H (1.4-6.5) K/uL Lymph # (Auto) 0.45 L (1.2-3.4) K/uL [place] # (Auto) 1.27 H (0.11-0.59) K/uL Eos # (Auto) 0.01 (0-0.5) K/uL Baso # (Auto) 0.02 (0-0.2) K/uL Immature Gran # (Auto) 0.20 H (0.00-0.02) K/uL PT 10.7 (9.0-12.0) Seconds INR 1.1 (0.9-1.1) APTT 28.5 (21.0-31.0) Seconds PTT Ratio 1.1 Sodium 135 L (136-145) mmol/L Potassium 3.7 (3.5-5.1) mmol/L Chloride 105 (98-107) mmol/L Carbon Dioxide 20 L (21-32) mmol/L Anion Gap 10.0 (3-11) BUN 19 H (7-18) mg/dl Creatinine 1.34 (0.6-1.4) mg/dl Est Cr Clr Drug Dosing 41.7 ml/min Est GFR ( Amer) 60.9 ml/min Est GFR (Non-Af Amer) 52.6 ml/min BUN/Creatinine Ratio 14.3 (10-20) Glucose 137 H (70-99) mg/dl Lactate (0.4-2.0) mmol/L Calcium 8.2 L (8.5-10.1) mg/dl Magnesium 1.9 (1.8-2.4) mg/dl Total Bilirubin 1.3 H (0.2-1) mg/dl AST 36 (15-37) U/L ALT 19 (12-78) U/L Alkaline Phosphatase 74 (45-117) U/L Troponin I 0.024 (0-0.045) ng/ml Total Protein 6.6 (6.4-8.2) gm/dl Albumin 3.0 L (3.4-5.0) gm/dl Globulin 3.6 (2.5-4.0) gm/dl Albumin/Globulin Ratio 0.8 L (0.9-2) Procalcitonin (0-0.5) ng/ml Urine Color Urine Appearance (Clear) Urine pH (4.5-7.5) Ur Specific [place] (1.000-1.030) Urine Protein (Negative) Urine Glucose (UA) (Negative) Urine Ketones (Negative) Urine Blood (Negative) Urine Nitrite (Negative) Urine Bilirubin (Negative) Urine Urobilinogen (Negative) Ur Leukocyte Esterase (Negative) Urine RBC (0-4) /hpf Urine WBC (0-5) /hpf Ur Epithelial Cells (0-5) /lpf Urine Bacteria (Negative) COVID-19 Eval Order SARS-CoV-2 (PCR) (Negative) 12/27/20 12/27/20 12/27/20 Range/Units 10:45 11:47 11:49 WBC (4.8-10.8) K/uL RBC (4.7-6.1) M/uL Hgb (14.0-18.0) g/dL Hct (42-52) % MCV (80-100) fL MCH (25-34) pg MCHC (32-36) g/dL RDW Std Deviation (36.4-46.3) fL RDW Coeff of Trung (11.5-14.5) % Plt Count (130-400) K/uL MPV (7.4-10.4) fL Immature Gran % (Auto) % Neut % (Auto) % Lymph % (Auto) % [place] % (Auto) % Eos % (Auto) % Baso % (Auto) % Neut # (Auto) (1.4-6.5) K/uL Lymph # (Auto) (1.2-3.4) K/uL [place] # (Auto) (0.11-0.59) K/uL Eos # (Auto) (0-0.5) K/uL Baso # (Auto) (0-0.2) K/uL Immature Gran # (Auto) (0.00-0.02) K/uL PT (9.0-12.0) Seconds INR (0.9-1.1) APTT (21.0-31.0) Seconds PTT Ratio Sodium (136-145) mmol/L Potassium (3.5-5.1) mmol/L Chloride (98-107) mmol/L Carbon Dioxide (21-32) mmol/L Anion Gap (3-11) BUN (7-18) mg/dl Creatinine (0.6-1.4) mg/dl Est Cr Clr Drug Dosing ml/min Est GFR ( Amer) ml/min Est GFR (Non-Af Amer) ml/min BUN/Creatinine Ratio (10-20) Glucose (70-99) mg/dl Lactate 1.9 (0.4-2.0) mmol/L Calcium (8.5-10.1) mg/dl Magnesium (1.8-2.4) mg/dl Total Bilirubin (0.2-1) mg/dl AST (15-37) U/L ALT (12-78) U/L Alkaline Phosphatase (45-117) U/L Troponin I (0-0.045) ng/ml Total Protein (6.4-8.2) gm/dl Albumin (3.4-5.0) gm/dl Globulin (2.5-4.0) gm/dl Albumin/Globulin Ratio (0.9-2) Procalcitonin 0.99 H (0-0.5) ng/ml Urine Color [place] Urine Appearance Slightly Cloudy (Clear) Urine pH (4.5-7.5) Ur Specific [place] 1.018 (1.000-1.030) Urine Protein (Negative) Urine Glucose (UA) (Negative) Urine Ketones (Negative) Urine Blood (Negative) Urine Nitrite (Negative) Urine Bilirubin (Negative) Urine Urobilinogen (Negative) Ur Leukocyte Esterase (Negative) Urine RBC >30 H (0-4) /hpf Urine WBC >30 H (0-5) /hpf Ur Epithelial Cells 5-10 H (0-5) /lpf Urine Bacteria 2+ H (Negative) COVID-19 Eval Order SARS-CoV-2 (PCR) (Negative) 12/27/20 12/27/20 Range/Units 12:34 12:34 WBC (4.8-10.8) K/uL RBC (4.7-6.1) M/uL Hgb (14.0-18.0) g/dL Hct (42-52) % MCV (80-100) fL MCH (25-34) pg MCHC (32-36) g/dL RDW Std Deviation (36.4-46.3) fL RDW Coeff of Trung (11.5-14.5) % Plt Count (130-400) K/uL MPV (7.4-10.4) fL Immature Gran % (Auto) % Neut % (Auto) % Lymph % (Auto) % [place] % (Auto) % Eos % (Auto) % Baso % (Auto) % Neut # (Auto) (1.4-6.5) K/uL Lymph # (Auto) (1.2-3.4) K/uL [place] # (Auto) (0.11-0.59) K/uL Eos # (Auto) (0-0.5) K/uL Baso # (Auto) (0-0.2) K/uL Immature Gran # (Auto) (0.00-0.02) K/uL PT (9.0-12.0) Seconds INR (0.9-1.1) APTT (21.0-31.0) Seconds PTT Ratio Sodium (136-145) mmol/L Potassium (3.5-5.1) mmol/L Chloride (98-107) mmol/L Carbon Dioxide (21-32) mmol/L Anion Gap (3-11) BUN (7-18) mg/dl Creatinine (0.6-1.4) mg/dl Est Cr Clr Drug Dosing ml/min Est GFR ( Amer) ml/min Est GFR (Non-Af Amer) ml/min BUN/Creatinine Ratio (10-20) Glucose (70-99) mg/dl Lactate (0.4-2.0) mmol/L Calcium (8.5-10.1) mg/dl Magnesium (1.8-2.4) mg/dl Total Bilirubin (0.2-1) mg/dl AST (15-37) U/L ALT (12-78) U/L Alkaline Phosphatase (45-117) U/L Troponin I (0-0.045) ng/ml Total Protein (6.4-8.2) gm/dl Albumin (3.4-5.0) gm/dl Globulin (2.5-4.0) gm/dl Albumin/Globulin Ratio (0.9-2) Procalcitonin (0-0.5) ng/ml Urine Color Urine Appearance (Clear) Urine pH (4.5-7.5) Ur Specific [place] (1.000-1.030) Urine Protein (Negative) Urine Glucose (UA) (Negative) Urine Ketones (Negative) Urine Blood (Negative) Urine Nitrite (Negative) Urine Bilirubin (Negative) Urine Urobilinogen (Negative) Ur Leukocyte Esterase (Negative) Urine RBC (0-4) /hpf Urine WBC (0-5) /hpf Ur Epithelial Cells (0-5) /lpf Urine Bacteria (Negative) COVID-19 Eval Order Covid19 at [facility] SARS-CoV-2 (PCR) NEGATIVE (Negative) Administered Medications Sodium Chloride (Nss 1000ml) 1,000 mls @ 125 mls/hr IV .Q8H [facility] Stop: 01/26/21 15:25 Last Admin: 12/27/20 16:25 Dose: 125 mls/hr Documented by: [id number] Discontinued Medications Ciprofloxacin (Ciprofloxacin 500 Mg Tab) 500 mg PO NOW STA Stop: 12/27/20 11:21 Last Admin: 12/27/20 12:28 Dose: 500 mg Documented by: [id number] Sodium Chloride (Nss 1000ml) 1,000 mls @ 999 mls/hr IV .Q1H1M [facility] Stop: 12/27/20 12:20 Last Infusion: 12/27/20 13:00 Dose: 0 mls/hr Documented by: [id number] Admin: 12/27/20 11:30 Dose: 999 mls/hr Documented by: [id number] Sodium Chloride (Nss 1000ml) 800 mls @ 999 mls/hr IV .Q49M [facility] Stop: 12/27/20 13:08 Last Infusion: 12/27/20 13:29 Dose: 0 mls/hr Documented by: [id number] Admin: 12/27/20 11:30 Dose: 999 mls/hr Documented by: [id number] Vancomycin HCl 1,500 mg/ (Sodium Chloride) 530 mls @ 200 mls/hr IV NOW ONE Stop: 12/27/20 13:58 Last Admin: 12/27/20 13:26 Dose: 200 mls/hr Documented by: [id number] Acetaminophen (Ofirmev) 1,000 mg in 100 mls @ 400 mls/hr IV NOW STA Stop: 12/27/20 11:37 Last Infusion: 12/27/20 12:45 Dose: 0 mls/hr Documented by: [id number] Admin: 12/27/20 12:28 Dose: 400 mls/hr Documented by: [id number] Piperacillin Sod/Tazobactam (Sod 3.375 gm/ Dextrose) 115 mls @ 230 mls/hr IV NOW ONE; Protocol Stop: 12/27/20 16:29 Last Admin: 12/27/20 17:23 Dose: 230 mls/hr Documented by: [id number] Ioversol (Optiray 320 100ml) 94 ml IV ONCE ONE Stop: 12/27/20 11:57 Last Admin: 12/27/20 11:57 Dose: 94 ml Documented by: [id number] Imaging Data Radiologist's Impression: Abdomen/Pelvis CT 12/27/20 11:20 CT OF THE ABDOMEN AND PELVIS WITH CONTRAST CLINICAL HISTORY: fever, recent L stent, confusion COMPARISON STUDY: CT of the abdomen and pelvis October 26, 2020. TECHNIQUE: Following IV administration of 94 mL of Optiray, axial images of the abdomen and pelvis were obtained from the lung bases to the proximal femurs. Images were reviewed in the axial, sagittal, and coronal planes. IV contrast was administered without complication. Automated exposure control was utilized for the study. A dose lowering technique was utilized adhering to the principles of ALARA. CT DOSE: 343.99 mGy.cm FINDINGS: Exam is mildly compromised by motion artifact. There is a trace left pleural effusion with associated atelectasis. There is trace left perisplenic fluid. Mild splenomegaly is noted. The adrenal glands, pancreas and liver are unremarkable. There is no biliary or pancreatic ductal dilatation. Left ureteral stent is in place. There is no hydronephrosis. No ureteral calculi are identified. A 4 mm suspected calculus within the upper pole of the left kidney is noted. This has decreased in size since prior exam. Multifocal scarring within the right kidney is noted. There is a hypoenhancing focus within the upper pole of the left kidney. There is moderate left and mild right perinephric infiltration. Bladder wall thickening is noted. Prostate is moderately enlarged. There are findings suggestive of transient recent resection of the prostate. There is a small amount of presacral fluid. Caliber and wall thickness of small and large bowel are normal. There is a moderate amount stool within the colon. No suspicious osseous lesions are present. IMPRESSION: 1. Hypoenhancing focus within the upper pole of the left kidney. This is nonspecific but raise the possibility of pyelonephritis. A renal infarct could appear similar although is less likely given the clinical history. Moderate left perinephric infiltration. Bladder wall thickening with adjacent infiltration could be correlated urinalysis to exclude cystitis. 2. Left ureteral stent in place. No ureteral calculi or fragments. 4 mm left renal calculus. 3. Mild splenomegaly. 4. Trace perisplenic ascites. 5. Trace left pleural effusion. ACT 112: Negative or not required by law. Electronically signed by: Ramón Lorenzo M.D. 12/27/2020 12:16 PM Chest X-Ray 12/27/20 11:20 XR chest 1V portable CLINICAL HISTORY: SEPSIS COMPARISON STUDY: Chest radiograph December 03, 2020. FINDINGS: Note is made of mild cardiomegaly. There is pulmonary vascular congestion. No pneumothorax or pleural effusion is noted. There is no consolidation to suggest pneumonia. IMPRESSION: Mild cardiomegaly. Pulmonary vascular congestion. ACT 112: Negative or not required by law. Electronically signed by: Ramón Lorenzo M.D. 12/27/2020 12:18 PM Discharge Plan Visit Data Chief Complaint: Illness Stated Complaint: BACK PAIN, AMS ED Provider: Naif Grover Discharge Problem: Acute pyelonephritis, Sepsis Patient Disposition: Admitted As Inpatient Discharge Instructions Interventions: ED Discharge Assessment Last Done: 12/27/20 15:05 Discharge Problem: Sepsis Qualifiers: Sepsis type: sepsis due to unspecified organism Sepsis acute organ dysfunction status: unspecified Qualified Code(s): A41.9 - Sepsis, unspecified organism
[2020-12-27] MEDS ORDERED: VANCOMYCIN CONSULT ACTIVE PRN ×2 (11:20→15:26)
[2020-12-27] MEDS ORDERED: CIPROFLOXACIN 500 MG TAB PO STA (11:20)
[2020-12-27] MEDS ORDERED: VANCOMYCIN HCL 1,500 MG in SODIUM CHLORIDE 0.9% 500 ML IV ONE (11:20)
[2020-12-27] MEDS ORDERED: ACETAMINOPHEN 1,000 MG/100 ML VIAL IV STA (11:23)
[2020-12-27 11:29] LABS: Hematocrit (blood only) 36.4 % (42-52); Hemoglobin 11.9 g/dL (14.0-18.0); Mean Corpuscular Hemoglobin 30.9 pg (25-34); Mean Corpuscular Hgb Conc 32.7 g/dL (32-36); Mean Corpuscular Volume 94.5 fL (80-100); Mean Platelet Volume 9.4 fL (7.4-10.4); Platelet Count 218 K/uL (130-400); RDW Coefficient of Variation 14.9 % (11.5-14.5); RDW Standard Deviation 51.8 fL (36.4-46.3); Red Blood Count 3.85 M/uL (4.7-6.1); White Blood Count 26.22 K/uL (4.8-10.8)
[2020-12-27] MEDS ORDERED: SODIUM CHLORIDE 0.9% 1000ML 1,000 ML IV SCH ×3 (11:30→20:30)
[2020-12-27 11:40] LABS: INR 1.1 (0.9-1.1); Partial Thromboplastin Ratio 1.1; Partial Thromboplastin Time 28.5 Seconds (21.0-31.0); Prothrombin Time 10.7 Seconds (9.0-12.0)
[2020-12-27 11:42] LABS: BUN Creatinine Ratio 14.3 (10-20); Calcium 8.2 mg/dl (8.5-10.1); Creatinine Clr Calc Pharmacy 41.7 ml/min; Est GFR (African American) 60.9 ml/min; Est GFR (Non-African American) 52.6 ml/min; Magnesium 1.9 mg/dl (1.8-2.4); Potassium 3.7 mmol/L (3.5-5.1)
[2020-12-27 11:46] LABS: Albumin Globulin Ratio 0.8 (0.9-2); Bilirubin,Total 1.3 mg/dl (0.2-1); Globulin 3.6 gm/dl (2.5-4.0); Total Protein 6.6 gm/dl (6.4-8.2); Troponin I 0.024 ng/ml (0-0.045)
[2020-12-27 11:55] LABS: Basophils # (auto) 0.02 K/uL (0-0.2); Basophils % (auto) 0.1 %; Eosinophils # (auto) 0.01 K/uL (0-0.5); Immature Granulocytes % (auto) 0.8 %; Lymphocytes # (auto) 0.45 K/uL (1.2-3.4); Lymphocytes % (auto) 1.7 %; Monocytes # (auto) 1.27 K/uL (0.11-0.59); Monocytes % (auto) 4.8 %; Neutrophils # (auto) 24.27 K/uL (1.4-6.5); Neutrophils % (auto) 92.6 %
[2020-12-27] MEDS ORDERED: OPTIRAY 320 100ml IV ONE (11:56)
[2020-12-27 12:10] LABS: Appearance Urine Slightly Cloudy (Clear); Color Urine Orange; Specific Gravity Urine 1.018 (1.000-1.030)
[2020-12-27 12:12] LABS: Bacteria Urine 2+ (Negative); RBC Urine >30 /hpf (0-4); WBC Urine >30 /hpf (0-5)
--- NOTE | 2020-12-27 12:17 | CT Scan Report ---
CT OF THE ABDOMEN AND PELVIS WITH CONTRAST CLINICAL HISTORY: fever, recent L stent, confusion COMPARISON STUDY: CT of the abdomen and pelvis October 26, 2020. TECHNIQUE: Following IV administration of 94 mL of Optiray, axial images of the abdomen and pelvis we re obtained from the lung bases to the proximal femurs. Images were reviewed in the axial, sagittal, and coronal planes. IV contrast was administered without complication. Automated exposure control wa s utilized for the study. A dose lowering technique was utilized adhering to the principles of ALARA . CT DOSE: 343.99 mGy.cm FINDINGS: Exam is mildly compromised by motion artifact. There is a trace left pleural effusion with associated atelectasis. There is trace left perisplenic fluid. Mild splenomegaly is noted. The adrena l glands, pancreas and liver are unremarkable. There is no biliary or pancreatic ductal dilatation. L eft ureteral stent is in place. There is no hydronephrosis. No ureteral calculi are identified. A 4 m m suspected calculus within the upper pole of the left kidney is noted. This has decreased in size si nce prior exam. Multifocal scarring within the right kidney is noted. There is a hypoenhancing focus within the upper pole of the left kidney. There is moderate left and mild right perinephric infiltrat ion. Bladder wall thickening is noted. Prostate is moderately enlarged. There are findings suggestive of transient recent resection of the prostate. There is a small amount of presacral fluid. Caliber a nd wall thickness of small and large bowel are normal. There is a moderate amount stool within the co christel. No suspicious osseous lesions are present. IMPRESSION: 1. Hypoenhancing focus within the upper pole of the left kidney. This is nonspecific but raise the po ssibility of pyelonephritis. A renal infarct could appear similar although is less likely given the c linical history. Moderate left perinephric infiltration. Bladder wall thickening with adjacent infilt ration could be correlated urinalysis to exclude cystitis. 2. Left ureteral stent in place. No ureteral calculi or fragments. 4 mm left renal calculus. 3. Mild splenomegaly. 4. Trace perisplenic ascites. 5. Trace left pleural effusion. ACT 112: Negative or not required by law. Electronically signed by: Ramón Lorenzo M.D. 12/27/2020 12:16 PM
--- NOTE | 2020-12-27 12:19 | XRay Report ---
XR chest 1V portable CLINICAL HISTORY: SEPSIS COMPARISON STUDY: Chest radiograph December 03, 2020. FINDINGS: Note is made of mild cardiomegaly. There is pulmonary vascular congestion. No pneumothorax or pleural effusion is noted. There is no consolidation to suggest pneumonia. IMPRESSION: Mild cardiomegaly. Pulmonary vascular congestion. ACT 112: Negative or not required by law. Electronically signed by: Ramón Lorenzo M.D. 12/27/2020 12:18 PM
[2020-12-27] MEDS ORDERED: SODIUM CHLORIDE 0.9% 1000ML 800 ML IV SCH (12:20)
[2020-12-27] MEDS ORDERED: PIPERACILL/TAZOBAC CONSULT ACTIVE PRN (15:26)
--- NOTE | 2020-12-27 15:30 | History & Physical Report ---
Date of Service December 27, 2020 Assessment & Plan (1) Sepsis: (2) Pyelonephritis: -Admit to telemetry -Patient presenting from home with reports of confusion and fever -On 12/10/2020, patient underwent planned cystoscopy, left ureteroscopy, laser stone destruction, basket stone extraction, and left stent insertion. Patient was also noted to have a large prostate with obstruction with purulent discharge and also underwent TURP. Patient was discharged with coud catheter in place. He was also discharged on a course of cephalexin and Cipro. Catheter was removed on 12/24. -In the ED, meeting sepsis criteria with low-grade fever, tachycardia, WBC 26K. BP stable, lactic acid normal -CT ABD/pelvis shows signs of left-sided pyelonephritis -Renal function stable -S/p p.o. Cipro and IV Vanco in the ED. Continue with IV Zosyn and IV Vanco for now. IVF. -Follow urine and blood cultures -Urology consult, case discussed with Dr. Kelsey Mittal (3) Glaucoma: -Resume acetazolamide tomorrow (4) Anxiety: -Continue home medications (5) DVT prophylaxis: -SCDs for now Admission and Anticipated Discharge Date Admission Date: December 27, 2020 History of Present Illness Chief Complaint: Confusion, fever Primary Care Provider: Yulissa Elliott MD 70-year-old male with PMH BPH, nephrolithiasis, dyslipidemia, glaucoma, light chain disease, anxiety, and other problems listed below who presents the ED for evaluation of confusion and fever. On 12/10/2020, patient underwent planned cystoscopy, left ureteroscopy, laser stone destruction, basket stone extraction, and left stent insertion. Patient was also noted to have a large prostate with obstruction with purulent discharge and also underwent TURP. Patient was discharged with coud catheter in place. He was also discharged on a course of cephalexin and Cipro. Catheter was removed on 12/24. Yesterday, patient developed confusion. He was also complaining of mid lower back pain. reports patient was incontinent of urine throughout the night and had a fever of 101.5 this morning with rigors. Patient reports chronic burning with urination which is unchanged from baseline. Urine has been orange in color secondary to taking Pyridium. Denies hematuria. Confusion persisted and patient was brought to the ED for further evaluation. Patient had a very poor appetite however no nausea, vomiting, diarrhea. Denies chest pain shortness of breath. No lightheadedness, dizziness, diaphoresis, syncopal events. In the ED, patient had low-grade temp 37.7, tachycardia, WBC 26K. BP stable, lactic acid normal. CT ABD/pelvis shows signs of left-sided pyelonephritis. Patient was given p.o. ciprofloxacin, IV vancomycin, IVF. Allergies Allergy/AdvReac Type Severity Reaction Status Date / Time doxycycline Allergy Mild Vomiting Verified 12/27/20 12:59 trazodone AdvReac Intermediate DISORIENTED Verified 12/27/20 12:59 NSAIDS (Non-Steroidal AdvReac Mild had Verified 12/27/20 12:59 Anti-Inflamma bleeding ulcer Home Medications Medication Instructions Recorded Confirmed Type acetazolamide 250 mg tablet 250 mg PO QAM 03/26/18 12/27/20 History atorvastatin 20 mg tablet 20 mg PO HS 03/26/18 12/27/20 History cholestyramine (with sugar) 4 gram 4 gm PO HS gm 03/26/18 12/27/20 History oral powder cyanocobalamin (vitamin B-12) 5,000 mcg PO QAM 03/26/18 12/27/20 History 5,000 mcg disintegrating tablet folic acid 1 mg tablet 1 mg PO QAM 03/26/18 12/27/20 History dorzolamide 22.3 mg-timolol 6.8 1 drops OP BID 08/06/18 12/27/20 History mg/mL eye drops gabapentin 600 mg tablet 600 mg PO BID tab 08/06/18 12/27/20 History zolpidem [Ambien] 10 mg PO HS 11/02/18 12/27/20 History baclofen 10 mg tablet 10 mg PO TID tab 04/22/20 12/27/20 History brimonidine 0.1 % eye drops 1 drp OPL TID 04/22/20 12/27/20 History cholecalciferol (vitamin D3) 25 4,000 unit PO QAM cap 04/22/20 12/27/20 History mcg (1,000 unit) capsule coenzyme Q10 200 mg capsule 200 mg PO QAM cap 04/22/20 12/27/20 History duloxetine 60 mg capsule,delayed 60 mg PO QAM cap 04/22/20 12/27/20 History release ferrous sulfate 325 mg (65 mg 325 mg PO QAM 04/22/20 12/27/20 History iron) tablet vitamin E (dl, acetate) 45 mg (100 450 unit PO QAM cap 04/22/20 12/27/20 History unit) capsule phenazopyridine 200 mg tablet 200 mg PO TID PRN 3 Days #9 tab 10/14/20 12/27/20 Rx calcium citrate-vitamin D3 1 tab PO QAM 12/01/20 12/27/20 History dutasteride 0.5 mg PO QAM 12/01/20 12/27/20 History sildenafil 20 mg PO DAILY PRN 12/01/20 12/27/20 History tamsulosin [Flomax] 0.8 mg PO QPM 12/01/20 12/27/20 History vitamin B complex 1 cap PO QAM 12/01/20 12/27/20 History oxybutynin chloride 5 mg PO Q8H PRN #20 tab 12/10/20 12/27/20 Rx oxycodone-acetaminophen 5 mg-325 1 tab PO Q8H PRN #7 tab 12/16/20 12/27/20 Rx mg tablet duloxetine 30 mg PO QAM 12/27/20 12/27/20 History fish,bora,flax oils-om3,6,9no1 1 cap PO QAM 12/27/20 12/27/20 History [[place] 3-6-9] verapamil 120 mg PO QAM 12/27/20 12/27/20 History Past Med/Surg History Medical History Anxiety BPH loc w urin obs/LUTS Cervical facet syndrome Cervicalgia Chronic back pain GERD (gastroesophageal reflux disease) Well controlled and stable GI bleed 2006 Glaucoma Takes Diamox Hypercholesterolemia Impotence Kidney stones Macular edema Nephrolithiasis Occipital neuralgia Orchitis and epididymitis Retinal vasculitis Rheumatoid arthritis "inactive" per patient Surgical History H/O cataract removal with insertion of prosthetic lens History of abdominal surgery fatty tumor removal below left rib History of bone marrow biopsy History of colonoscopy History of cystoscopy History of detached retina repair History of endoscopic sinus surgery begning cyst bx History of esophagogastroduodenoscopy (EGD) History of left breast biopsy enlarged breast tissue History of surgery left eye shunt History of tonsillectomy and adenoidectomy S/P TURP (transurethral resection of prostate) Family History Father Cancer Mother Cancer Stroke Social History Smoking Status: Never smoker Second Hand Exposure: No; Hx Alcohol Use: Yes Hx Substance Use: No Preferred Language: Malian Communication Ability: Effective Infantry Assaultman Required: No Beliefs That Will Affect Care: None marital status: Current Living Situation: Spouse current occupational status: retired Feels Safe at Home: No Is there a partner from a previous relationship who is making you feel unsafe now?: No Safety Concerns: Feels Safe At This Time Assistive Devices: Glasses Review of Systems Review of Systems: ROS per HPI, all other systems reviewed and negative Physical Exam Constitutional: WD/WN, vitals as above Eyes: PERRL, conjunctivae normal, anicteric sclerae ENMT: external ear and nose normal, oropharynx normal Respiratory: normal respiratory effort, lungs clear to auscultation Cardiovascular: Rate/Rhythm: regular rate and regular rhythm Heart Sounds: + murmur (Grade 3/6, systolic) Vessels: normal peripheral pulses Extremities: no edema Gastrointestinal (Abdomen): normal bowel sounds, soft, nontender, no hepatosplenomegaly Musculoskeletal: no cyanosis or clubbing, extremities motor strength 5/5 Skin: no rashes Warm and clammy Neurologic: PERRL, EOMI, accommodation nl, no face palsy, no dysarthria Psychiatric: A+Ox3, euthymic affect Forgetful Genitourinary: no CVA tenderness Results & Data Results & Data ([facility]) Vital Signs (Past 12 Hours) Vital Signs Temp Pulse Resp BP Pulse Ox 12/27/20 15:00 94 H 24 109/61 93 12/27/20 14:30 92 H 20 108/59 L 93 12/27/20 14:00 94 H 25 H 106/59 L 92 12/27/20 13:30 104 H 28 H 107/61 93 12/27/20 13:00 101 H 24 118/63 94 12/27/20 12:30 105 H 21 165/71 H 94 12/27/20 12:01 114 H 27 H 159/72 H 94 12/27/20 12:00 92 12/27/20 11:48 99 H 20 152/73 H 96 12/27/20 11:30 92 H 21 12/27/20 11:00 93 H 12/27/20 10:50 37.7 C H 99 H 21 149/64 H 99 12/27/20 10:30 98 H 25 H 94 12/27/20 10:28 99 H 22 149/64 H 94 12/27/20 10:27 99 H 27 H Laboratory Results Short CBC 12/27/20 Range/Units 10:45 WBC 26.22 H (4.8-10.8) K/uL Hgb 11.9 L (14.0-18.0) g/dL Hct 36.4 L (42-52) % Plt Count 218 (130-400) K/uL BMP 12/27/20 10:45 Sodium 135 L Potassium 3.7 Chloride 105 Carbon Dioxide 20 L BUN 19 H Creatinine 1.34 Glucose 137 H Calcium 8.2 L Cardiac Enzymes 12/27/20 Range/Units 10:45 Troponin I 0.024 (0-0.045) ng/ml Liver Function 12/27/20 Range/Units 10:45 Total Bilirubin 1.3 H (0.2-1) mg/dl AST 36 (15-37) U/L ALT 19 (12-78) U/L Alkaline Phosphatase 74 (45-117) U/L Albumin 3.0 L (3.4-5.0) gm/dl Urine 12/27/20 Range/Units 11:49 Urine Color [place] Urine Appearance Slightly Cloudy (Clear) Urine pH (4.5-7.5) Ur Specific [place] 1.018 (1.000-1.030) Urine Protein (Negative) Urine Glucose (UA) (Negative) Diagnostic Findings Abdomen/Pelvis CT 12/27/20 11:20 CT OF THE ABDOMEN AND PELVIS WITH CONTRAST CLINICAL HISTORY: fever, recent L stent, confusion COMPARISON STUDY: CT of the abdomen and pelvis October 26, 2020. TECHNIQUE: Following IV administration of 94 mL of Optiray, axial images of the abdomen and pelvis were obtained from the lung bases to the proximal femurs. Images were reviewed in the axial, sagittal, and coronal planes. IV contrast was administered without complication. Automated exposure control was utilized for the study. A dose lowering technique was utilized adhering to the principles of ALARA. CT DOSE: 343.99 mGy.cm FINDINGS: Exam is mildly compromised by motion artifact. There is a trace left pleural effusion with associated atelectasis. There is trace left perisplenic fluid. Mild splenomegaly is noted. The adrenal glands, pancreas and liver are unremarkable. There is no biliary or pancreatic ductal dilatation. Left ureteral stent is in place. There is no hydronephrosis. No ureteral calculi are ident ified. A 4 mm suspected calculus within the upper pole of the left kidney is noted. This has decreased in size since prior exam. Multifocal scarring within the right kidney is noted. There is a hypoenhancing focus within the upper pole of the left kidney. There is moderate left and mild right perinephric infiltration. Bladder wall thickening is noted. Prostate is moderately enlarged. There are findings suggestive of transient recent resection of the prostate. There is a small amount of presacral fluid. Caliber and wall thickness of small and large bowel are normal. There is a moderate amount stool within the colon. No suspicious osseous lesions are present. IMPRESSION: 1. Hypoenhancing focus within the upper pole of the left kidney. This is nonspecific but raise the possibility of pyelonephritis. A renal infarct could appear similar although is less likely given the clinical history. Moderate left perinephric infiltration. Bladder wall thickening with adjacent infiltration co uld be correlated urinalysis to exclude cystitis. 2. Left ureteral stent in place. No ureteral calculi or fragments. 4 mm left renal calculus. 3. Mild splenomegaly. 4. Trace perisplenic ascites. 5. Trace left pleural effusion. ACT 112: Negative or not required by law. Electronically signed by: Ramón Lorenzo M.D. 12/27/2020 12:16 PM Chest X-Ray 12/27/20 11:20 XR chest 1V portable CLINICAL HISTORY: SEPSIS COMPARISON STUDY: Chest radiograph December 03, 2020. FINDINGS: Note is made of mild cardiomegaly. There is pulmonary vascular congestion. No pneumothorax or pleural effusion is noted. There is no consolidation to suggest pneumonia. IMPRESSION: Mild cardiomegaly. Pulmonary vascular congestion. ACT 112: Negative or not required by law. Electronically signed by: Ramón Lorenzo M.D. 12/27/2020 12:18 PM Code Status & VTE Plan Code Status Patient is a full code as per my discussion with him. VTE Prophylaxis Plan VTE Prophylaxis will be ordered: Yes Supervising Physician Co-Signing Physician Notes Patient seen and examined by me, care care coordinated with NIKKI Jain, please refer to her note above for further detail. Pt is a 70 y/o M who recently underwent ureteroscopy, laser lithotripsy, and left ureteral stent placement as well as a TURP. He had a catheter at home and this was removed. Pt presents with sepsis -fever, elevated blood cell count, low blood pressure, systolic blood pressure in the 90s currently. He is lying in bed, uncomfortable, slight rigors, diaphoretic. He is able to answer most questions appropriately. Patient's is at the bedside. Lungs are clear to auscultation laterally with anything rhonchi crackles. Heart sounds regular. Slightly tachycardic. Abdomen, soft, nontender nondistended. Patient reports back pain. No lower extremity edema. Moves extremities spontaneously. Received p.o. ciprofloxacin in the ED, and IV vancomycin. Case discussed with Dr. Mittal with urology. We will continue IV antibiotics for now, no procedure planned at this time. Norman Jaramillo MD
--- NOTE | 2020-12-27 15:49 | Pharmacy Report ---
Pharmacy Abx Initial Consult - Date of Service December 27, 2020 - Pharmacy Dosing Scope Date of Consult: 12/27/20 Consultation requested by: NIKKI Jain Pharmacy is consulted to initiate Vancomycin and Zosyn IV dosing therapy, order appropriate labs and adjust drug dose/frequency. - Subjective The patient is a 70 year old M admitted on 12/27/20 13:04 with fever and confusion. On 12/10/2020, patient underwent planned cystoscopy, left ureteroscopy, laser stone destruction, basket stone extraction, and left stent insertion. Patient was also noted to have a large prostate with obstruction with purulent discharge and also underwent TURP. Patient was discharged with coud catheter in place. He was also discharged on a course of cephalexin and Cipro. Patient received IV Vancomycin and PO Cipro in ED. - Objective Height: 5 ft 4 in Weight: 59.4 kg Vital Signs (Past 12hrs): Vital Signs Temp Pulse Resp BP Pulse Ox 12/27/20 15:00 94 H 24 109/61 93 12/27/20 14:30 92 H 20 108/59 L 93 12/27/20 14:00 94 H 25 H 106/59 L 92 12/27/20 13:30 104 H 28 H 107/61 93 12/27/20 13:00 101 H 24 118/63 94 12/27/20 12:30 105 H 21 165/71 H 94 12/27/20 12:01 114 H 27 H 159/72 H 94 12/27/20 12:00 92 12/27/20 11:48 99 H 20 152/73 H 96 12/27/20 11:30 92 H 21 12/27/20 11:00 93 H 21 12/27/20 10:50 37.7 C H 99 H 21 149/64 H 99 12/27/20 10:30 98 H 25 H 94 12/27/20 10:28 99 H 22 149/64 H 94 12/27/20 10:27 99 H 27 H Lab Results (24hrs): Laboratory Tests (24 Hours) 12/27/20 12/27/20 12/27/20 10:45 10:45 10:45 WBC 26.22 H Neut # (Auto) 24.27 H Creatinine 1.34 Est Cr Clr Drug Dosing 41.7 Procalcitonin 0.99 H Micro Results: 12/27/20 11:49 Urine Culture - Pending Urine,Straight Cath 12/27/20 11:46 Aerobic Blood Culture - Pending Blood Anaerobic Blood Culture - Pending 12/27/20 10:45 Aerobic Blood Culture - Pending Blood Anaerobic Blood Culture - Pending - Risk Factors for Resistance * Hospitalization for 48 hours or more within the past 90 days * Antimicrobial use within the last 90 days - Cipro and cephalexin - Assessment & Plan Assessment 70 year old M meeting sepsis criteria with low-grade fever, tachycardia, WBC 26K. BP stable, lactic acid normal. -CT ABD/pelvis shows signs of left-sided pyelonephritis, renal function stable. -Blood and urine cultures pending. Plan IV Vancomycin and Zosyn for treatment of sepsis, pyelonephritis Vancomycin IV Patient meets criteria for vancomycin AUC dosing nomogram AUC/TAO is the preferred PK/PD target for vancomycin Target AUC/TAO = 400-600 AUC guided dosing is effective and associated with decreased risk of nephrotoxicity * Loading dose: 2500 mg (25 mg/kg) * Maintenance dose: 1250 mg IV (21 mg/kg) every 24 hours * Trough level ordered for 12/30/20 Piperacillin/tazobactam * 3.375 g bolus administered over 30 minutes, then 3.375 g IV extended infusion every 8 hours for CrCl greater than 20 mL/min Pharmacy will continue to follow and will adjust dose/frequency as necessary. Thank you.
[2020-12-27] MEDS ORDERED: PIPERACILLIN/TAZOBACTAM 3.375 GM in DEXTROSE 5% 100 ML IV ONE (16:00)
[2020-12-27] MEDS: SODIUM CHLORIDE 0.9% 1000ML 1,000 ML IV SCH (16:25)
--- NOTE | 2020-12-27 16:40 | Urology Consultation ---
Date of Consultation December 27, 2020 Assessment & Plan (1) Sepsis: Patient with his stent in good position. Continue antibiotics and IV hydration. Patient is currently on Zosyn and Vancomycin. Cultures are pending. Trend CBC with repeat blood work tomorrow. Leave stent in place. If patient experiences any issues with emptying consider bladder scanning to ensure emptying. I would leave the stent in place until the patient is on culture specific antibiotics and has clinically improved. No need for a rojo at this time since the patient is voiding without issues. Present on Admission?: Yes (2) Pyelonephritis: Present on Admission?: Yes History of Present Illness Reason for Consultation: pyelonephritis The patient recently underwent ureteroscopy, laser lithotripsy, and left ureteral stent placement as well as a TURP. He had a catheter at home and this was removed. He was weak at home the last 48 hours with little appetite. He presents feeling ill with an elevated WBC of 26 and an elevated pulse 96 with BP of 95/58. On CT imaging he was bladder was empty. His left stent is in good position with no evidence of abscess. He does have stranding around the left kidney - pyelonephritis. He was admitted with the hospitalists. I was contacted earlier in the day and recommended broad spectrum antibiotic therapy. Patient scheduled to undergo stent removal on 12/30/20. Attending Physician: Matt Jaramillo MD Allergies Allergy/AdvReac Type Severity Reaction Status Date / Time doxycycline Allergy Mild Vomiting Verified 12/27/20 12:59 trazodone AdvReac Intermediate DISORIENTED Verified 12/27/20 12:59 NSAIDS (Non-Steroidal AdvReac Mild had Verified 12/27/20 12:59 Anti-Inflamma bleeding ulcer Home Medications Medication Instructions Recorded Confirmed Type acetazolamide 250 mg tablet 250 mg PO QAM 03/26/18 12/27/20 History atorvastatin 20 mg tablet 20 mg PO HS 03/26/18 12/27/20 History cholestyramine (with sugar) 4 gram 4 gm PO HS gm 03/26/18 12/27/20 History oral powder cyanocobalamin (vitamin B-12) 5,000 mcg PO QAM 03/26/18 12/27/20 History 5,000 mcg disintegrating tablet folic acid 1 mg tablet 1 mg PO QAM 03/26/18 12/27/20 History dorzolamide 22.3 mg-timolol 6.8 1 drops OP BID 08/06/18 12/27/20 History mg/mL eye drops gabapentin 600 mg tablet 600 mg PO BID tab 08/06/18 12/27/20 History zolpidem [Ambien] 10 mg PO HS 11/02/18 12/27/20 History baclofen 10 mg tablet 10 mg PO TID tab 04/22/20 12/27/20 History brimonidine 0.1 % eye drops 1 drp OPL TID 04/22/20 12/27/20 History cholecalciferol (vitamin D3) 25 4,000 unit PO QAM cap 04/22/20 12/27/20 History mcg (1,000 unit) capsule coenzyme Q10 200 mg capsule 200 mg PO QAM cap 04/22/20 12/27/20 History duloxetine 60 mg capsule,delayed 60 mg PO QAM cap 04/22/20 12/27/20 History release ferrous sulfate 325 mg (65 mg 325 mg PO QAM 04/22/20 12/27/20 History iron) tablet vitamin E (dl, acetate) 45 mg (100 450 unit PO QAM cap 04/22/20 12/27/20 History unit) capsule phenazopyridine 200 mg tablet 200 mg PO TID PRN 3 Days #9 tab 10/14/20 12/27/20 Rx calcium citrate-vitamin D3 1 tab PO QAM 12/01/20 12/27/20 History dutasteride 0.5 mg PO QAM 12/01/20 12/27/20 History sildenafil 20 mg PO DAILY PRN 12/01/20 12/27/20 History tamsulosin [Flomax] 0.8 mg PO QPM 12/01/20 12/27/20 History vitamin B complex 1 cap PO QAM 12/01/20 12/27/20 History oxybutynin chloride 5 mg PO Q8H PRN #20 tab 12/10/20 12/27/20 Rx oxycodone-acetaminophen 5 mg-325 1 tab PO Q8H PRN #7 tab 12/16/20 12/27/20 Rx mg tablet duloxetine 30 mg PO QAM 12/27/20 12/27/20 History fish,bora,flax oils-om3,6,9no1 1 cap PO QAM 12/27/20 12/27/20 History [[place] 3-6-9] verapamil 120 mg PO QAM 12/27/20 12/27/20 History Patient History Medical History Anxiety BPH loc w urin obs/LUTS Cervical facet syndrome Cervicalgia Chronic back pain GERD (gastroesophageal reflux disease) Well controlled and stable GI bleed 2006 Glaucoma Takes Diamox Hypercholesterolemia Impotence Kidney stones Macular edema Nephrolithiasis Occipital neuralgia Orchitis and epididymitis Retinal vasculitis Rheumatoid arthritis "inactive" per patient Surgical History H/O cataract removal with insertion of prosthetic lens History of abdominal surgery fatty tumor removal below left rib History of bone marrow biopsy History of colonoscopy History of cystoscopy History of detached retina repair History of endoscopic sinus surgery begning cyst bx History of esophagogastroduodenoscopy (EGD) History of left breast biopsy enlarged breast tissue History of surgery left eye shunt History of tonsillectomy and adenoidectomy S/P TURP (transurethral resection of prostate) Family History Father Cancer Mother Cancer Stroke Social History Smoking Status: Never smoker Second Hand Exposure: No; Hx Alcohol Use: Yes Hx Substance Use: No Preferred Language: Citizen [place] Communication Ability: Effective Supervisor Public Health Nursing Required: No Beliefs That Will Affect Care: None marital status: Current Living Situation: Spouse current occupational status: retired Feels Safe at Home: Yes Assistive Devices: Glasses Review of Systems Review of Systems: All systems reviewed & are unremarkable except as noted in HPI & below Physical Exam Physical Exam: NAD OR x 3 tachy nonlabored soft L CVA tenderness normal affect ext without edema Results & Data ([facility]) Vital Signs (Past 12 Hours) Vital Signs Temp Pulse Resp BP BP Pulse Ox Pulse Ox 12/27/20 15:26 93 12/27/20 15:20 37.2 C 15 95/58 L 93 12/27/20 15:00 94 H 24 109/61 93 12/27/20 14:30 92 H 20 108/59 L 93 12/27/20 14:00 94 H 25 H 106/59 L 92 12/27/20 13:30 104 H 28 H 107/61 93 12/27/20 13:00 101 H 24 118/63 94 12/27/20 12:30 105 H 21 165/71 H 94 12/27/20 12:01 114 H 27 H 159/72 H 94 12/27/20 12:00 92 12/27/20 11:48 99 H 20 152/73 H 96 12/27/20 11:30 92 H 21 12/27/20 11:00 93 H 21 12/27/20 10:50 37.7 C H 99 H 21 149/64 H 99 12/27/20 10:30 98 H 25 H 94 12/27/20 10:28 99 H 22 149/64 H 94 12/27/20 10:27 99 H 27 H PG Care Time/CCT Total # of Minutes Spent Total Time Spent with Patient: Total time spent is greater than 50% in coordination of care (as documented) at patient's floor/unit and/or counseling patient: Coding Level of Care Code 44426 Initial Inpt Care Lvl 3 Diagnoses Sepsis A41.9 Pyelonephritis N12
[2020-12-27] MEDS: ACETAMINOPHEN 325 MG TAB PO PRN (18:17)
[2020-12-27] MEDS: DUTASTERIDE: ORDER AWAITING ACTION SCH (19:22)
[2020-12-27] MEDS: PIPERACILLIN/TAZOBACTAM 3.375 GM in DEXTROSE 5% 100 ML IV SCH (19:50)
[2020-12-27] MEDS: ATORVASTATIN 20 MG TAB PO SCH (19:54)
[2020-12-27] MEDS: TAMSULOSIN HCL 0.4 MG CAP PO SCH (19:54)
[2020-12-27] MEDS: BACLOFEN 10 MG TAB PO SCH (19:55)
[2020-12-27] MEDS: DORZOLAMIDE/TIMOLOL 22.3/6.8MG/ML 10 ML BTL OP SCH (19:55)
[2020-12-27] MEDS: GABAPENTIN 600 MG TAB PO SCH (19:55)
[2020-12-27] MEDS: BRIMONIDINE TARTRATE-P 0.15% 5 ML BTL OPL SCH (19:56)
[2020-12-27] MEDS: CHOLESTYRAMINE LIGHT 4 GM PKT PO SCH (21:47)
[2020-12-27] MEDS: MoRPHine SULFATE 4 MG/ML 1 ML CARP\\VIAL IV PRN (22:02)
[2020-12-28] MEDS: DUTASTERIDE: ORDER AWAITING ACTION SCH ×3 (00:03→15:02)
[2020-12-28] MEDS: SODIUM CHLORIDE 0.9% 1000ML 1,000 ML IV SCH ×4 (02:17→20:01)
[2020-12-28] MEDS: PIPERACILLIN/TAZOBACTAM 3.375 GM in DEXTROSE 5% 100 ML IV SCH ×3 (03:34→19:29)
[2020-12-28] MEDS: ACETAMINOPHEN 325 MG TAB PO PRN ×3 (04:01→19:02)
[2020-12-28] MEDS ORDERED: KETOROLAC TROMETHAMINE 15 MG/ML VIAL IV ONE (04:44)
[2020-12-28 07:10] LABS: Hematocrit (blood only) 32.7 % (42-52); Hemoglobin 10.3 g/dL (14.0-18.0); Mean Corpuscular Hemoglobin 30.6 pg (25-34); Mean Corpuscular Hgb Conc 31.5 g/dL (32-36); Mean Platelet Volume 8.9 fL (7.4-10.4); Platelet Count 165 K/uL (130-400); RDW Coefficient of Variation 15.4 % (11.5-14.5); RDW Standard Deviation 55.2 fL (36.4-46.3); Red Blood Count 3.37 M/uL (4.7-6.1); White Blood Count 18.13 K/uL (4.8-10.8)
--- NOTE | 2020-12-28 07:42 | Hospitalist Progress Note ---
Date of Service December 28, 2020 Assessment & Plan (1) Sepsis: (2) Pyelonephritis: Gram negative bacteremia -Admit to telemetry -Patient presenting from home with reports of confusion and fever -On 12/10/2020, patient underwent planned cystoscopy, left ureteroscopy, laser stone destruction, basket stone extraction, and left stent insertion. Patient was also noted to have a large prostate with obstruction with purulent discharge and also underwent TURP. Patient was discharged with coud catheter in place. He was also discharged on a course of cephalexin and Cipro. Catheter was removed on 12/24. -In the ED, meeting sepsis criteria with fever, tachycardia, WBC 26K. low BP (SBP in 90s after IVF), lactic acid normal -CT ABD/pelvis shows signs of left-sided pyelonephritis -Renal function stable on admission, now CR 1.5 - cont. to closely monitor -S/p p.o. Cipro and IV Vanco in the ED. Continue with IV Zosyn and IV Vanco for now. IVF. -urine cultx -gram-negative bacilli -blood culture -gram-negative bacilli -Urology consulted - stent in good position, plan to keep stent for 1-2 weeks until infection has cleared. (3) Glaucoma: -Resume acetazolamide when BP stable (4) Anxiety: -Continue home medications (5) DVT prophylaxis: -SCDs for now Admission and Anticipated Discharge Date Admission Date: December 27, 2020 Subjective Patient seen in follow-up of sepsis, pyelonephritis, gram-negative bacteremia Currently patient is sitting up in the bed, in no acute distress, feeling much better Denies any more diaphoresis or rigors Denies chest pain, shortness of breath, abdominal pain, nausea or vomiting. He had eggs for breakfast tolerated well. External catheter placed Review of Systems Review of Systems: All systems reviewed & are unremarkable except as noted in HPI & below Constitutional: + chills (improved) Respiratory: no cough and no dyspnea Cardiovascular: no chest pain and no palpitations Gastrointestinal: no abdominal pain, no nausea and no vomiting Physical Exam Physical Exam: Constitutional: WD/WN, M in NAD Eyes: PERRL, EOMI, conjunctivae normal, anicteric sclerae ENMT: external ear and nose normal, oropharynx normal Respiratory: normal respiratory effort, lungs clear to auscultation Cardiovascular: Rate/Rhythm: regular rate and regular rhythm Heart Sounds: + murmur (Grade 3/6, systolic) Vessels: normal peripheral pulses Extremities: no edema Gastrointestinal (Abdomen): normal bowel sounds, soft, nontender Musculoskeletal: extremities motor strength 5/5 Skin: no rashes Warm, dry Neurologic: PERRL, EOMI,no face palsy, hard of hearing, no dysarthria, moves extremities Psychiatric: A+Ox3, euthymic affect Genitourinary: no CVA tenderness Results & Data Results & Data ([facility]) Vital Signs (Past 12 Hours) Vital Signs Temp Pulse Pulse Resp BP Pulse Ox 12/28/20 07:35 36.7 C 69 19 92/55 L 96 12/28/20 05:30 37.0 C 12/28/20 04:40 38.7 C H 12/28/20 03:58 39.4 C H 92 H 23 118/66 92 12/28/20 00:20 37.5 C 98 H 16 111/64 95 12/27/20 23:02 74 12/27/20 21:56 102/62 12/27/20 20:11 37.7 C H 83 16 86/51 L 94 Laboratory Results 12/28/20 12/28/20 12/27/20 Range/Units 06:54 06:54 20:34 WBC 18.13 H (4.8-10.8) K/uL RBC 3.37 L (4.7-6.1) M/uL Hgb 10.3 L (14.0-18.0) g/dL Hct 32.7 L (42-52) % MCV 97.0 (80-100) fL MCH 30.6 (25-34) pg MCHC 31.5 L (32-36) g/dL RDW Std Deviation 55.2 H (36.4-46.3) fL RDW Coeff of Trung 15.4 H (11.5-14.5) % Plt Count 165 (130-400) K/uL MPV 8.9 (7.4-10.4) fL Immature Gran % (Auto) % Neut % (Auto) % Lymph % (Auto) % [place] % (Auto) % Eos % (Auto) % Baso % (Auto) % Neut # (Auto) (1.4-6.5) K/uL Lymph # (Auto) (1.2-3.4) K/uL [place] # (Auto) (0.11-0.59) K/uL Eos # (Auto) (0-0.5) K/uL Baso # (Auto) (0-0.2) K/uL Immature Gran # (Auto) (0.00-0.02) K/uL PT (9.0-12.0) Seconds INR (0.9-1.1) APTT (21.0-31.0) Seconds PTT Ratio Sodium 140 (136-145) mmol/L Potassium 3.9 (3.5-5.1) mmol/L Chloride 113 H (98-107) mmol/L Carbon Dioxide 18 L (21-32) mmol/L Anion Gap 9.0 (3-11) BUN 21 H (7-18) mg/dl Creatinine 1.50 H (0.6-1.4) mg/dl Est Cr Clr Drug Dosing 37.3 ml/min Est GFR ( Amer) 53.1 ml/min Est GFR (Non-Af Amer) 45.9 ml/min BUN/Creatinine Ratio 13.7 (10-20) Glucose 129 H (70-99) mg/dl Lactate 2.0 (0.4-2.0) mmol/L Calcium 7.4 L (8.5-10.1) mg/dl Magnesium (1.8-2.4) mg/dl Total Bilirubin (0.2-1) mg/dl AST (15-37) U/L ALT (12-78) U/L Alkaline Phosphatase (45-117) U/L Troponin I (0-0.045) ng/ml Total Protein (6.4-8.2) gm/dl Albumin (3.4-5.0) gm/dl Globulin (2.5-4.0) gm/dl Albumin/Globulin Ratio (0.9-2) Procalcitonin (0-0.5) ng/ml Urine Color Urine Appearance (Clear) Urine pH (4.5-7.5) Ur Specific [place] (1.000-1.030) Urine Protein (Negative) Urine Glucose (UA) (Negative) Urine Ketones (Negative) Urine Blood (Negative) Urine Nitrite (Negative) Urine Bilirubin (Negative) Urine Urobilinogen (Negative) Ur Leukocyte Esterase (Negative) Urine RBC (0-4) /hpf Urine WBC (0-5) /hpf Ur Epithelial Cells (0-5) /lpf Urine Bacteria (Negative) COVID-19 Eval Order SARS-CoV-2 (PCR) (Negative) 12/27/20 12/27/20 12/27/20 Range/Units 12:34 12:34 11:49 WBC (4.8-10.8) K/uL RBC (4.7-6.1) M/uL Hgb (14.0-18.0) g/dL Hct (42-52) % MCV (80-100) fL MCH (25-34) pg MCHC (32-36) g/dL RDW Std Deviation (36.4-46.3) fL RDW Coeff of Trung (11.5-14.5) % Plt Count (130-400) K/uL MPV (7.4-10.4) fL Immature Gran % (Auto) % Neut % (Auto) % Lymph % (Auto) % [place] % (Auto) % Eos % (Auto) % Baso % (Auto) % Neut # (Auto) (1.4-6.5) K/uL Lymph # (Auto) (1.2-3.4) K/uL [place] # (Auto) (0.11-0.59) K/uL Eos # (Auto) (0-0.5) K/uL Baso # (Auto) (0-0.2) K/uL Immature Gran # (Auto) (0.00-0.02) K/uL PT (9.0-12.0) Seconds INR (0.9-1.1) APTT (21.0-31.0) Seconds PTT Ratio Sodium (136-145) mmol/L Potassium (3.5-5.1) mmol/L Chloride (98-107) mmol/L Carbon Dioxide (21-32) mmol/L Anion Gap (3-11) BUN (7-18) mg/dl Creatinine (0.6-1.4) mg/dl Est Cr Clr Drug Dosing ml/min Est GFR ( Amer) ml/min Est GFR (Non-Af Amer) ml/min BUN/Creatinine Ratio (10-20) Glucose (70-99) mg/dl Lactate (0.4-2.0) mmol/L Calcium (8.5-10.1) mg/dl Magnesium (1.8-2.4) mg/dl Total Bilirubin (0.2-1) mg/dl AST (15-37) U/L ALT (12-78) U/L Alkaline Phosphatase (45-117) U/L Troponin I (0-0.045) ng/ml Total Protein (6.4-8.2) gm/dl Albumin (3.4-5.0) gm/dl Globulin (2.5-4.0) gm/dl Albumin/Globulin Ratio (0.9-2) Procalcitonin (0-0.5) ng/ml Urine Color [place] Urine Appearance Slightly Cloudy (Clear) Urine pH (4.5-7.5) Ur Specific [place] 1.018 (1.000-1.030) Urine Protein (Negative) Urine Glucose (UA) (Negative) Urine Ketones (Negative) Urine Blood (Negative) Urine Nitrite (Negative) Urine Bilirubin (Negative) Urine Urobilinogen (Negative) Ur Leukocyte Esterase (Negative) Urine RBC >30 H (0-4) /hpf Urine WBC >30 H (0-5) /hpf Ur Epithelial Cells 5-10 H (0-5) /lpf Urine Bacteria 2+ H (Negative) COVID-19 Eval Order Covid19 at [facility] SARS-CoV-2 (PCR) NEGATIVE (Negative) 12/27/20 12/27/20 12/27/20 Range/Units 11:47 10:45 10:45 WBC (4.8-10.8) K/uL RBC (4.7-6.1) M/uL Hgb (14.0-18.0) g/dL Hct (42-52) % MCV (80-100) fL MCH (25-34) pg MCHC (32-36) g/dL RDW Std Deviation (36.4-46.3) fL RDW Coeff of Trung (11.5-14.5) % Plt Count (130-400) K/uL MPV (7.4-10.4) fL Immature Gran % (Auto) % Neut % (Auto) % Lymph % (Auto) % [place] % (Auto) % Eos % (Auto) % Baso % (Auto) % Neut # (Auto) (1.4-6.5) K/uL Lymph # (Auto) (1.2-3.4) K/uL [place] # (Auto) (0.11-0.59) K/uL Eos # (Auto) (0-0.5) K/uL Baso # (Auto) (0-0.2) K/uL Immature Gran # (Auto) (0.00-0.02) K/uL PT (9.0-12.0) Seconds INR (0.9-1.1) APTT (21.0-31.0) Seconds PTT Ratio Sodium 135 L (136-145) mmol/L Potassium 3.7 (3.5-5.1) mmol/L Chloride 105 (98-107) mmol/L Carbon Dioxide 20 L (21-32) mmol/L Anion Gap 10.0 (3-11) BUN 19 H (7-18) mg/dl Creatinine 1.34 (0.6-1.4) mg/dl Est Cr Clr Drug Dosing 41.7 ml/min Est GFR ( Amer) 60.9 ml/min Est GFR (Non-Af Amer) 52.6 ml/min BUN/Creatinine Ratio 14.3 (10-20) Glucose 137 H (70-99) mg/dl Lactate 1.9 (0.4-2.0) mmol/L Calcium 8.2 L (8.5-10.1) mg/dl Magnesium 1.9 (1.8-2.4) mg/dl Total Bilirubin 1.3 H (0.2-1) mg/dl AST 36 (15-37) U/L ALT 19 (12-78) U/L Alkaline Phosphatase 74 (45-117) U/L Troponin I 0.024 (0-0.045) ng/ml Total Protein 6.6 (6.4-8.2) gm/dl Albumin 3.0 L (3.4-5.0) gm/dl Globulin 3.6 (2.5-4.0) gm/dl Albumin/Globulin Ratio 0.8 L (0.9-2) Procalcitonin 0.99 H (0-0.5) ng/ml Urine Color Urine Appearance (Clear) Urine pH (4.5-7.5) Ur Specific [place] (1.000-1.030) Urine Protein (Negative) Urine Glucose (UA) (Negative) Urine Ketones (Negative) Urine Blood (Negative) Urine Nitrite (Negative) Urine Bilirubin (Negative) Urine Urobilinogen (Negative) Ur Leukocyte Esterase (Negative) Urine RBC (0-4) /hpf Urine WBC (0-5) /hpf Ur Epithelial Cells (0-5) /lpf Urine Bacteria (Negative) COVID-19 Eval Order SARS-CoV-2 (PCR) (Negative) 12/27/20 12/27/20 Range/Units 10:45 10:45 WBC 26.22 H (4.8-10.8) K/uL RBC 3.85 L (4.7-6.1) M/uL Hgb 11.9 L (14.0-18.0) g/dL Hct 36.4 L (42-52) % MCV 94.5 (80-100) fL MCH 30.9 (25-34) pg MCHC 32.7 (32-36) g/dL RDW Std Deviation 51.8 H (36.4-46.3) fL RDW Coeff of Trung 14.9 H (11.5-14.5) % Plt Count 218 (130-400) K/uL MPV 9.4 (7.4-10.4) fL Immature Gran % (Auto) 0.8 % Neut % (Auto) 92.6 % Lymph % (Auto) 1.7 % [place] % (Auto) 4.8 % Eos % (Auto) 0.0 % Baso % (Auto) 0.1 % Neut # (Auto) 24.27 H (1.4-6.5) K/uL Lymph # (Auto) 0.45 L (1.2-3.4) K/uL [place] # (Auto) 1.27 H (0.11-0.59) K/uL Eos # (Auto) 0.01 (0-0.5) K/uL Baso # (Auto) 0.02 (0-0.2) K/uL Immature Gran # (Auto) 0.20 H (0.00-0.02) K/uL PT 10.7 (9.0-12.0) Seconds INR 1.1 (0.9-1.1) APTT 28.5 (21.0-31.0) Seconds PTT Ratio 1.1 Sodium (136-145) mmol/L Potassium (3.5-5.1) mmol/L Chloride (98-107) mmol/L Carbon Dioxide (21-32) mmol/L Anion Gap (3-11) BUN (7-18) mg/dl Creatinine (0.6-1.4) mg/dl Est Cr Clr Drug Dosing ml/min Est GFR ( Amer) ml/min Est GFR (Non-Af Amer) ml/min BUN/Creatinine Ratio (10-20) Glucose (70-99) mg/dl Lactate (0.4-2.0) mmol/L Calcium (8.5-10.1) mg/dl Magnesium (1.8-2.4) mg/dl Total Bilirubin (0.2-1) mg/dl AST (15-37) U/L ALT (12-78) U/L Alkaline Phosphatase (45-117) U/L Troponin I (0-0.045) ng/ml Total Protein (6.4-8.2) gm/dl Albumin (3.4-5.0) gm/dl Globulin (2.5-4.0) gm/dl Albumin/Globulin Ratio (0.9-2) Procalcitonin (0-0.5) ng/ml Urine Color Urine Appearance (Clear) Urine pH (4.5-7.5) Ur Specific [place] (1.000-1.030) Urine Protein (Negative) Urine Glucose (UA) (Negative) Urine Ketones (Negative) Urine Blood (Negative) Urine Nitrite (Negative) Urine Bilirubin (Negative) Urine Urobilinogen (Negative) Ur Leukocyte Esterase (Negative) Urine RBC (0-4) /hpf Urine WBC (0-5) /hpf Ur Epithelial Cells (0-5) /lpf Urine Bacteria (Negative) COVID-19 Eval Order SARS-CoV-2 (PCR) (Negative) Medications Administered Current Inpatient Medications Acetaminophen (Acetaminophen 325 Mg Tab) 650 mg PO Q4H PRN PRN Reason: Pain or Fever Stop: 01/26/21 15:25 Last Admin: 12/28/20 08:43 Dose: 650 mg Documented by: Acetazolamide (Acetazolamide 250 Mg Tab) 250 mg [facility] [place] Stop: 01/27/21 08:59 Atorvastatin Calcium (Atorvastatin 20 Mg Tab) 20 mg PO HS [facility] Stop: 01/26/21 20:59 Last Admin: 12/27/20 19:54 Dose: 20 mg Documented by: Baclofen (Baclofen 10 Mg Tab) 10 mg PO TID [facility] Stop: 01/26/21 20:59 Last Admin: 12/28/20 08:43 Dose: 10 mg Documented by: Brimonidine Tartrate (Brimonidine Tartrate-P 0.15% 5 Ml Btl) 1 drops OPL TID [facility] Stop: 01/26/21 20:59 Last Admin: 12/28/20 08:43 Dose: 1 drops Documented by: Cholestyramine Resin (Cholestyramine Light 4 Gm Pkt) 4 gm PO DAILY@2200 [facility] Stop: 01/26/21 21:59 Last Admin: 12/27/20 21:47 Dose: 4 gm Documented by: Cyanocobalamin (Cyanocobalamin (Vitamin B-12) 2,500 Mcg Tab.Subl) 5,000 mcg SL QA[facility] [place] Stop: 01/27/21 08:59 Last Admin: 12/28/20 08:44 Dose: 5,000 mcg Documented by: Dorzolamide/Timolol (Dorzolamide/Timolol 22.3/6.8mg/Ml 10 Ml Btl) 1 drops OP BID [facility] Stop: 01/26/21 20:59 Last Admin: 12/28/20 08:44 Dose: 1 drops Documented by: Duloxetine HCl (Duloxetine Hcl 60 Mg Cap) 60 mg PO QAM [facility] Stop: 01/27/21 08:59 Last Admin: 12/28/20 08:44 Dose: 60 mg Documented by: Duloxetine HCl (Duloxetine Hcl 30 Mg Cap) 30 mg PO QAM [facility] Stop: 01/27/21 08:59 Last Admin: 12/28/20 08:44 Dose: 30 mg Documented by: Ferrous Sulfate (Ferrous Sulfate 325 Mg Tab) 325 mg PO QAM [facility] Stop: 01/27/21 08:59 Last Admin: 12/28/20 08:44 Dose: 325 mg Documented by: Folic Acid (Folic Acid 1 Mg Tab) 1 mg PO QAM [facility] Stop: 01/27/21 08:59 Last Admin: 12/28/20 08:44 Dose: 1 mg Documented by: Gabapentin (Gabapentin 600 Mg Tab) 600 mg PO BID [facility] Stop: 01/26/21 20:59 Last Admin: 12/28/20 08:44 Dose: 600 mg Documented by: Sodium Chloride (Nss 1000ml) 1,000 mls @ 125 mls/hr IV .Q8H [facility] Stop: 01/26/21 15:25 Last Admin: 12/28/20 02:17 Dose: 125 mls/hr Documented by: Piperacillin Sod/Tazobactam (Sod 3.375 gm/ Dextrose) 115 mls @ 28.75 mls/hr IV Q8H [facility]; Protocol Stop: 01/06/21 19:59 Last Infusion: 12/28/20 08:03 Dose: Infused Documented by: Vancomycin HCl 1,250 mg/ (Sodium Chloride) 275 mls @ 200 mls/hr IV Q24H [facility] Stop: 01/07/21 11:59 Miscellaneous (Dutasteride: Order Awaiting Action) 1 ea N/A QS [facility] Stop: 01/26/21 15:59 Last Admin: 12/28/20 08:45 Dose: Not Given Documented by: Miscellaneous Information (Piperacill/Tazobac Consult Active) 1 ea N/A UD PRN PRN Reason: Consult Stop: 01/26/21 15:25 Miscellaneous Information (Vancomycin Consult Active) 1 ea N/A UD PRN PRN Reason: Consult Stop: 01/26/21 15:25 Morphine Sulfate (Morphine Sulfate 4 Mg/Ml 1 Ml Carp\Vial) 3 mg IV Q4H PRN PRN Reason: Pain Stop: 01/10/21 20:05 Last Admin: 12/27/20 22:02 Dose: 3 mg Documented by: Tamsulosin HCl (Tamsulosin Hcl 0.4 Mg Cap) 0.8 mg PO QPM [facility] Stop: 01/26/21 20:59 Last Admin: 12/27/20 19:54 Dose: 0.8 mg Documented by: Verapamil HCl (Verapamil Hcl 120 Mg Tabcr) 120 mg PO QAM [facility] Stop: 01/27/21 08:59 Vitamin D (Cholecalciferol 1,000 Units 25 Mcg Tab) 4,000 units PO QAM [facility] Stop: 01/27/21 08:59 Last Admin: 12/28/20 08:44 Dose: 4,000 units Documented by:
[2020-12-28 07:53] LABS: BUN Creatinine Ratio 13.7 (10-20); Calcium 7.4 mg/dl (8.5-10.1); Creatinine Clr Calc Pharmacy 37.3 ml/min; Est GFR (African American) 53.1 ml/min; Est GFR (Non-African American) 45.9 ml/min; Potassium 3.9 mmol/L (3.5-5.1)
[2020-12-28] MEDS: BACLOFEN 10 MG TAB PO SCH ×3 (08:43→20:53)
[2020-12-28] MEDS: BRIMONIDINE TARTRATE-P 0.15% 5 ML BTL OPL SCH ×3 (08:43→20:54)
[2020-12-28] MEDS: FERROUS SULFATE 325 MG TAB PO SCH (08:44)
[2020-12-28] MEDS: DORZOLAMIDE/TIMOLOL 22.3/6.8MG/ML 10 ML BTL OP SCH ×2 (08:44→20:52)
[2020-12-28] MEDS: GABAPENTIN 600 MG TAB PO SCH ×2 (08:44→20:54)
[2020-12-28] MEDS: DULoxetine HCL 60 MG CAP PO SCH (08:44)
[2020-12-28] MEDS: CYANOCOBALAMIN (VITAMIN B-12) 2,500 MCG TAB.SUBL SL SCH (08:44)
[2020-12-28] MEDS: DULoxetine HCL 30 MG CAP PO SCH (08:44)
[2020-12-28] MEDS: CHOLECALCIFEROL 1,000 UNITS 25 MCG TAB PO SCH (08:44)
[2020-12-28] MEDS: FOLIC ACID 1 MG TAB PO SCH (08:44)
--- NOTE | 2020-12-28 09:04 | Urology Progress Note ---
Date of Service December 28, 2020 Assessment & Plan (1) Acute pyelonephritis: (2) Sepsis: (3) Nephrolithiasis: 70yo M who is s/p recent urologic procedure admitted with confusion and fever secondary to Pyelo/Sepsis - Status post cystoscopy, left ureteroscopy, laser stone destruction, basket s tone extraction, with left stent insertion and TURP procedure on 12/10/[address] Montez. - CTAP suggestive of left-sided pyelonephrisis; Left ureteral stent in good position. - He is afebrile, VSS. - Labs reviewed, Wbc down to 18.13 today, creatinine 1.50 -Continue to trend. - Urine and blood cultures preliminary with gram negative bacilli, repeat blood culture pending. - Recommend continue supportive care and antibiotic therapy, follow cultures. - Monitor urine output - If patient experiences any issues with voiding consider bladder scanning to ensure emptying. - Plan to keep stent for 1-2 weeks until infection has cleared. - No additional acute intervention indicated at this time. - Will arrange outpatient follow-up with urology service. - Thank you for allowing us to participate in the acute care of Mr. Wahl. - Please reconsult us with additional questions, concerns or changes in patient status. Admission and Anticipated Discharge Date Admission Date: December 27, 2020 Subjective Pt examined at bedside this AM. Awake, alert, resting in bed on arrival. He c/o right testicular pain which is chronic for patient. He denies back, flank, and suprapubic pain. Denies hematuria and dysuria. External catheter in place, dark yellow urine draining. Tolerating diet, no nausea or vomiting. Denies fevers or chills. Review of Systems Constitutional: as per Subjective / HPI Gastrointestinal: as per Subjective / HPI Genitourinary: + as per Subjective / HPI Physical Exam Constitutional: cooperative; no acute distress Respiratory: normal respiratory effort; no labored breathing and no audible wheezes Gastrointestinal (Abdomen): Percussion/Palpation: abdomen soft; abdomen nontender and no guarding Skin: Warm and dry Neurologic: awake Psychiatric: A+Ox3, euthymic affect Genitourinary: no CVA tenderness External urinary catheter in place, draining dark yellow urine Right testicular tenderness with palpation. No erythema or edema noted. Results & Data ([facility]) Vital Signs (Past 12 Hours) Vital Signs Temp Pulse Pulse Resp BP Pulse Ox 12/28/20 07:35 36.7 C 69 19 92/55 L 96 12/28/20 05:30 37.0 C 12/28/20 04:40 38.7 C H 12/28/20 03:58 39.4 C H 92 H 23 118/66 92 12/28/20 00:20 37.5 C 98 H 16 111/64 95 12/27/20 23:02 74 12/27/20 21:56 102/62 PG Care Time/CCT Total # of Minutes Spent Total Time Spent with Patient: Total time spent is greater than 50% in coordination of care (as documented) at patient's floor/unit and/or counseling patient: Coding Level of Care Code 87223 Subseq Hosp Care Lvl 2 Diagnoses Acute pyelonephritis N10 Sepsis A41.9 Sepsis acute organ dysfunction status: unspecified Sepsis type: sepsis due to unspecified organism Nephrolithiasis N20.0 (1) Sepsis Sepsis acute organ dysfunction status: unspecified Sepsis type: sepsis due to unspecified organism Qualified Code(s): A41.9 - Sepsis, unspecified organism
[2020-12-28] MEDS ORDERED: VANCOMYCIN HCL 1,250 MG in SODIUM CHLORIDE 0.9% 250 ML IV SCH (12:00)
--- NOTE | 2020-12-28 12:30 | Electrocardiogram Report ---
Test Reason : Blood Pressure : / mmHG Vent. Rate : 099 BPM Atrial Rate : 099 BPM P-R Int : 166 ms QRS Dur : 088 ms QT Int : 338 ms P-R-T Axes : 037 -19 055 degrees QTc Int : 433 ms Normal sinus rhythm Nonspecific ST abnormality When compared with ECG of 03-DEC-2020 08:36, Vent. rate has increased BY 42 BPM Confirmed by Asim rWight ([id number]) on 12/28/2020 12:30:46 PM Referred By: REFERRED SELF Confirmed By:Brent Wright
[2020-12-28] MEDS ORDERED: acetaZOLAMIDE 250 MG TAB PO ONE (16:07)
[2020-12-28] MEDS ORDERED: OPTIRAY 350 500ml IV ONE (17:33)
--- NOTE | 2020-12-28 17:54 | CT Scan Report ---
CT head/brain wo con CLINICAL HISTORY: R arm weakness r/o stroke COMPARISON STUDY: August 29, 2017. TECHNIQUE: Axial CT of the brain is performed from the vertex to the skull base. IV contrast was not administered for this examination. A dose lowering technique was utilized adhering to the principles of ALARA. CT DOSE: 614.27 mGy.cm FINDINGS: No acute intracranial hemorrhage, no midline shift or space occupying lesions are seen. Small focal area of decreased attenuation within the right basal ganglia might represent prominent pe rivascular space or new small lacunar infarct. Mild atrophic changes of brain parenchyma are seen, mostly within bilateral temporal lobes, appear wo rsened since prior study, associated with mild ex vacuo dilatation of ventricles. Redemonstration of the falx and tentorium cerebelli calcifications which were also seen during prior study. No acute depressed skull fractures are seen. Visualized paranasal sinuses and mastoid air cells are patent and well-aerated. IMPRESSION: No acute intracranial hemorrhage, no midline shift or space occupying lesions. Mild interval worsening of atrophic changes of brain parenchyma associated with ex vacuo dilatation o f ventricles. Small lacunar infarct or prominent perivascular space within right basal ganglia. ACT 112: Negative or not required by law. The above report was generated using voice recognition software. It may contain grammatical, syntax o r spelling errors. Electronically signed by: Miranda March DO 12/28/2020 5:53 PM
--- NOTE | 2020-12-28 18:08 | CT Scan Report ---
CT angio head w con CLINICAL HISTORY: r/o stroke TECHNIQUE: CT angiography of the head was performed in a dynamic helical fashion during intravenous a dministration of cc of Optiray. MIP imaging was performed. A dose lowering technique was utilized adh ering to the principles of ALARA. CT DOSE: 495.10 mGy.cm COMPARISON STUDY: No previous studies for comparison. FINDINGS: Bilateral middle cerebral arteries and anterior cerebral arteries are normally opacified. Anterior co mmunicating arteries are patent. The dural venous sinuses appear patent. There is origin of the left posterior cerebral artery and partial origin of the right pos terior cerebral artery associated with small caliber of the basilar artery and V4 segments of the rig ht and left vertebral arteries, above-mentioned findings represent developmental variant. Mild diffuse narrowing of P1 segment of the right posterior cerebral artery is seen without evidence of focal occlusion or aneurysmal dilatation. IMPRESSION: 1. No evidence of focal occlusion or aneurysmal dilatation. 2. origin of the left posterior cerebral artery and partial origin of the right posteri or cerebral artery (with mild diffuse narrowing of right P1 segment), above-mentioned findings likely represent developmental variant. ACT 112: Negative or not required by law. The above report was generated using voice recognition software. It may contain grammatical, syntax o r spelling errors. Electronically signed by: Miranda March DO 12/28/2020 6:07 PM
--- NOTE | 2020-12-28 18:14 | CT Scan Report ---
CT angio neck with con CLINICAL HISTORY: r/o stroke COMPARISON STUDY: No previous studies for comparison. TECHNIQUE: CT angiography was performed from the aortic arch to the skull base. MIP imaging was perfo rmed. The patient was scanned in a dynamic helical fashion during intravenous administration of 115 c c of Optiray. A dose lowering technique was utilized adhering to the principles of ALARA. CT DOSE: Technique: CT angiogram of the carotid and vertebral arteries was obtained using intravenous contrast and 3-D reconstruction. NASCET criteria was utilized. Findings: The right carotid revealed no evidence of aneurysm and no evidence of dissection. There is no evidenc e of hemodynamic significant stenosis. The left carotid revealed no evidence of hemodynamic significant stenosis. There is no evidence of an eurysm. There is no evidence of dissection. There is a right predominant vertebral circulation. Decreased caliber of V4 segments of the right and left vertebral arteries are seen; left worse than right. No definite focal occlusion is seen. There is no evidence of vertebral dissection. IMPRESSION: No evidence of hemodynamically significant carotid artery stenosis. Decreased caliber of V4 segments of the right and left vertebral arteries, left worse than right. No focal occlusion seen. No evidenc e of dissection. ACT 112: Negative or not required by law. The above report was generated using voice recognition software. It may contain grammatical, syntax o r spelling errors. Electronically signed by: Miranda March DO 12/28/2020 6:13 PM
--- NOTE | 2020-12-28 18:23 | Hospitalist Progress Note ---
Date of Service December 28, 2020 Assessment & Plan Admission and Anticipated Discharge Date Admission Date: December 27, 2020 Subjective Called at bedside by the nursing staff, around 5 PM. Per patient's at the bedside, patient was not able to eat properly his dinner. Specifically right arm/hand felt weak, patient not able to hold slower appropriately. Reportedly patient ate breakfast and lunch, then was visited by his around 2:30. Patient's reports that this time he seemed to be little more confused, thought he was in hospital for longer than since yesterday. She then noticed weakness with holding silverware and alarmed the nursing staff. I was then contacted. On my exam, patient reports feeling well. Denies any chest pain, shortness of breath, any pain. He is following most of my commands, however sometimes he misses, he is also hard of hearing. He is able to smile, and smile is symmetric. He is able to stick his tongue out which is in midline. Able to close his eyes tight and raises eyebrows, both symmetric on my exam. Able to shrug his shoulders. He is moving all 4 extremities however he is not able to hold his upper extremities up for very long time (maybe few seconds). Hospital Fellow is equal on both sides. He is able to move his lower extremities however again only able to lift them lightly from the bed. No sensory loss was noted. Stroke alert was called, patient underwent stat CT head without contrast. CTA head and neck. [place] stroke neurologist contacted. CT head concerning for small lacunar infarct. CTA not yet read. Dr. Macias, from [facility] recommends aspirin, nonemergent echo and MRI, neurology consult. Per her exam, not likely large vessel stroke, however can contact her if any concerns when CTA is read. Does not recommend alteplase giv en there is no certain time when patient changed. Norman Jaramillo MD Results & Data Results & Data ([facility]) Vital Signs (Past 12 Hours) Vital Signs Temp Pulse Pulse Resp BP BP Pulse Ox 12/28/20 17:15 38.7 C H 108 H 20 164/73 H 94 12/28/20 15:29 36.3 C L 85 18 128/68 96 12/28/20 15:24 77 12/28/20 11:42 36.5 C 75 18 109/61 95 12/28/20 07:35 36.7 C 69 19 92/55 L 96 12/28/20 07:00 70
[2020-12-28] MEDS: ASPIRIN 81 MG ECTAB PO SCH (19:03)
[2020-12-28] MEDS: ATORVASTATIN 20 MG TAB PO SCH (20:54)
[2020-12-28] MEDS: TAMSULOSIN HCL 0.4 MG CAP PO SCH (20:55)
[2020-12-28] MEDS: CHOLESTYRAMINE LIGHT 4 GM PKT PO SCH (22:07)
[2020-12-29] MEDS: PIPERACILLIN/TAZOBACTAM 3.375 GM in DEXTROSE 5% 100 ML IV SCH ×2 (03:33→12:05)
[2020-12-29] MEDS: SODIUM CHLORIDE 0.9% 1000ML 1,000 ML IV SCH ×3 (03:57→20:42)
[2020-12-29 06:57] LABS: Hematocrit (blood only) 30.6 % (42-52); Hemoglobin 10.1 g/dL (14.0-18.0); Mean Corpuscular Hemoglobin 30.9 pg (25-34); Mean Corpuscular Volume 93.6 fL (80-100); Mean Platelet Volume 8.8 fL (7.4-10.4); Platelet Count 158 K/uL (130-400); RDW Coefficient of Variation 15.7 % (11.5-14.5); RDW Standard Deviation 53.7 fL (36.4-46.3); Red Blood Count 3.27 M/uL (4.7-6.1); White Blood Count 13.61 K/uL (4.8-10.8)
[2020-12-29 07:33] LABS: BUN Creatinine Ratio 17.1 (10-20); Calcium 7.7 mg/dl (8.5-10.1); Creatinine Clr Calc Pharmacy 41.7 ml/min; Est GFR (African American) 60.9 ml/min; Est GFR (Non-African American) 52.6 ml/min; Magnesium 1.9 mg/dl (1.8-2.4); Potassium 3.5 mmol/L (3.5-5.1)
--- NOTE | 2020-12-29 07:50 | Hospitalist Progress Note ---
Date of Service December 29, 2020 Assessment & Plan (1) Sepsis: (2) Pyelonephritis: Gram negative bacteremia -Admit to telemetry -Patient presenting from home with reports of confusion and fever -On 12/10/2020, patient underwent planned cystoscopy, left ureteroscopy, laser stone destruction, basket stone extraction, and left stent insertion. Patient was also noted to have a large prostate with obstruction with purulent discharge and also underwent TURP. Patient was discharged with coud catheter in place. He was also discharged on a course of cephalexin and Cipro. Catheter was removed on 12/24. -In the ED, meeting sepsis criteria with fever, tachycardia, WBC 26K. low BP (SBP in 90s after IVF), lactic acid normal -CT ABD/pelvis shows signs of left-sided pyelonephritis -Renal function stable on admission, now CR 1.5 - cont. to closely monitor -S/p p.o. Cipro and IV Vanco in the ED. Continued with IV Zosyn and IV Vanco, IVF. -urine cultx -gram-negative bacilli -Pseudomonas aeruginosa -> can stop vanco -blood culture -gram-negative bacilli -Urology consulted - stent in good position, plan to keep stent for 1-2 weeks until infection has cleared. (3) Glaucoma: -Resume acetazolamide when BP stable (4) Anxiety: -Continue home medications CVA Lacunar infarct R basal ganglia (12/28) ~ 5pm - patient was noted to have right upper arm weakness, and confusion per at the bedside On my examination, patient was able to move all 4 extremities however had some mild weakness in the right upper extremity but also in the left upper extremity, in addition had some weakness in his right lower extremity however able to move it Stroke alert was called, and patient had a stat CT head, CTA head and neck Lacunar infarct in the right basal ganglia noted [facility] stroke physician also consulted Patient started on aspirin, echo and MRI ordered [facility] neurology consulted (5) DVT prophylaxis: -SCDs for now Admission and Anticipated Discharge Date Admission Date: December 27, 2020 Subjective Patient seen in follow-up of sepsis, pyelonephritis, gram-negative bacteremia Currently patient is sitting up in the bed, in no acute distress, feeling much better Denies any more diaphoresis or rigors Denies chest pain, shortness of breath, abdominal pain, nausea or vomiting. Yesterday afternoon, around 5 PM, patient had right upper arm weakness, and more confusion. Stroke alert was called. Currently without any symptoms, moving extremities and feeling well. Review of Systems Review of Systems: All systems reviewed & are unremarkable except as noted in HPI & below Constitutional: + chills (improved) Respiratory: no cough and no dyspnea Cardiovascular: no chest pain and no palpitations Gastrointestinal: no abdominal pain, no nausea and no vomiting Physical Exam Physical Exam: Constitutional: WD/WN, M in NAD Eyes: PERRL, EOMI, conjunctivae normal, anicteric sclerae ENMT: external ear and nose normal, oropharynx normal Respiratory: normal respiratory effort, lungs clear to auscultation Cardiovascular: Rate/Rhythm: regular rate and regular rhythm Heart Sounds: + murmur (Grade 3/6, systolic) Vessels: normal peripheral pulses Extremities: no edema Gastrointestinal (Abdomen): normal bowel sounds, soft, nontender Musculoskeletal: extremities motor strength 5/5 Skin: no rashes Warm, dry Neurologic: PERRL, EOMI,no face palsy, hard of hearing, no dysarthria, moves extremities Psychiatric: A+Ox3, euthymic affect Genitourinary: no CVA tenderness Results & Data Results & Data ([facility]) Vital Signs (Past 12 Hours) Vital Signs Temp Pulse Pulse Resp BP Pulse Ox 12/29/20 07:33 82 12/29/20 03:35 36.7 C 83 16 116/65 95 12/28/20 23:31 78 12/28/20 22:50 36.2 C L 72 20 97/60 L 95 Laboratory Results 12/29/20 12/29/20 12/28/20 Range/Units 06:42 06:42 17:18 WBC 13.61 H (4.8-10.8) K/uL RBC 3.27 L (4.7-6.1) M/uL Hgb 10.1 L (14.0-18.0) g/dL Hct 30.6 L (42-52) % MCV 93.6 (80-100) fL MCH 30.9 (25-34) pg MCHC 33.0 (32-36) g/dL RDW Std Deviation 53.7 H (36.4-46.3) fL RDW Coeff of Trung 15.7 H (11.5-14.5) % Plt Count 158 (130-400) K/uL MPV 8.8 (7.4-10.4) fL Sodium 139 (136-145) mmol/L Potassium 3.5 (3.5-5.1) mmol/L Chloride 114 H (98-107) mmol/L Carbon Dioxide 15 L (21-32) mmol/L Anion Gap 10.0 (3-11) BUN 23 H (7-18) mg/dl Creatinine 1.34 (0.6-1.4) mg/dl Est Cr Clr Drug Dosing 41.7 ml/min Est GFR ( Amer) 60.9 ml/min Est GFR (Non-Af Amer) 52.6 ml/min BUN/Creatinine Ratio 17.1 (10-20) Glucose 128 H (70-99) mg/dl POC Glucose 126 H (70-99) mg/dl Calcium 7.7 L (8.5-10.1) mg/dl Phosphorus Pending Magnesium 1.9 (1.8-2.4) mg/dl 12/28/20 Range/Units 06:54 WBC (4.8-10.8) K/uL RBC (4.7-6.1) M/uL Hgb (14.0-18.0) g/dL Hct (42-52) % MCV (80-100) fL MCH (25-34) pg MCHC (32-36) g/dL RDW Std Deviation (36.4-46.3) fL RDW Coeff of Trung (11.5-14.5) % Plt Count (130-400) K/uL MPV (7.4-10.4) fL Sodium 140 (136-145) mmol/L Potassium 3.9 (3.5-5.1) mmol/L Chloride 113 H (98-107) mmol/L Carbon Dioxide 18 L (21-32) mmol/L Anion Gap 9.0 (3-11) BUN 21 H (7-18) mg/dl Creatinine 1.50 H (0.6-1.4) mg/dl Est Cr Clr Drug Dosing 37.3 ml/min Est GFR ( Amer) 53.1 ml/min Est GFR (Non-Af Amer) 45.9 ml/min BUN/Creatinine Ratio 13.7 (10-20) Glucose 129 H (70-99) mg/dl POC Glucose (70-99) mg/dl Calcium 7.4 L (8.5-10.1) mg/dl Phosphorus Magnesium (1.8-2.4) mg/dl Medications Administered Current Inpatient Medications Acetaminophen (Acetaminophen 325 Mg Tab) 650 mg PO Q4H PRN PRN Reason: Pain or Fever Stop: 01/26/21 15:25 Last Admin: 12/28/20 19:02 Dose: 650 mg Documented by: Acetazolamide (Acetazolamide 250 Mg Tab) [facility] Stop: 01/27/21 08:59 Aspirin (Aspirin 81 Mg Ectab) 81 mg PO QAM [facility] Stop: 01/27/21 18:29 Last Admin: 12/28/20 19:03 Dose: 81 mg Documented by: Atorvastatin Calcium (Atorvastatin 20 Mg Tab) 20 mg PO HS [facility] Stop: 01/26/21 20:59 Last Admin: 12/28/20 20:54 Dose: 20 mg Documented by: Baclofen (Baclofen 10 Mg Tab) 10 mg PO TID [facility] Stop: 01/26/21 20:59 Last Admin: 12/28/20 20:53 Dose: 10 mg Documented by: Brimonidine Tartrate (Brimonidine Tartrate-P 0.15% 5 Ml Btl) 1 drops OPL TID [facility] Stop: 01/26/21 20:59 Last Admin: 12/28/20 20:54 Dose: 1 drops Documented by: Cholestyramine Resin (Cholestyramine Light 4 Gm Pkt) 4 gm PO DAILY@2200 [facility] Stop: 01/26/21 21:59 Last Admin: 12/28/20 22:07 Dose: 4 gm Documented by: Cyanocobalamin (Cyanocobalamin (Vitamin B-12) 2,500 Mcg Tab.Subl) 5,000 mcg SL QAM [facility] Stop: 01/27/21 08:59 Last Admin: 12/28/20 08:44 Dose: 5,000 mcg Documented by: Dorzolamide/Timolol (Dorzolamide/Timolol 22.3/6.8mg/Ml 10 Ml Btl) 1 drops OP BID [facility] Stop: 01/26/21 20:59 Last Admin: 12/28/20 20:52 Dose: 1 drops Documented by: Duloxetine HCl (Duloxetine Hcl 60 Mg Cap) 60 mg PO QAM [facility] Stop: 01/27/21 08:59 Last Admin: 12/28/20 08:44 Dose: 60 mg Documented by: Duloxetine HCl (Duloxetine Hcl 30 Mg Cap) 30 mg PO QAM [facility] Stop: 01/27/21 08:59 Last Admin: 12/28/20 08:44 Dose: 30 mg Documented by: Dutasteride (Dutasteride) 1 ea PO Q24H [facility] Stop: 01/28/21 08:59 Ferrous Sulfate (Ferrous Sulfate 325 Mg Tab) 325 mg PO QAM [facility] Stop: 01/27/21 08:59 Last Admin: 12/28/20 08:44 Dose: 325 mg Documented by: Folic Acid (Folic Acid 1 Mg Tab) 1 mg PO QAM [facility] Stop: 01/27/21 08:59 Last Admin: 12/28/20 08:44 Dose: 1 mg Documented by: Gabapentin (Gabapentin 600 Mg Tab) 600 mg PO BID [facility] Stop: 01/26/21 20:59 Last Admin: 12/28/20 20:54 Dose: 600 mg Documented by: Sodium Chloride (Nss 1000ml) 1,000 mls @ 125 mls/hr IV .Q8H [facility] Stop: 01/26/21 15:25 Last Admin: 12/29/20 03:57 Dose: 125 mls/hr Documented by: Piperacillin Sod/Tazobactam (Sod 3.375 gm/ Dextrose) 115 mls @ 28.75 mls/hr IV Q8H [facility]; Protocol Stop: 01/06/21 19:59 Last Admin: 12/29/20 03:33 Dose: 28.8 mls/hr Documented by: Vancomycin HCl 1,250 mg/ (Sodium Chloride) 275 mls @ 200 mls/hr IV Q24H [facility] Stop: 01/07/21 11:59 Last Infusion: 12/28/20 13:29 Dose: Infused Documented by: Miscellaneous Information (Piperacill/Tazobac Consult Active) 1 ea N/A UD PRN PRN Reason: Consult Stop: 01/26/21 15:25 Miscellaneous Information (Vancomycin Consult Active) 1 ea N/A UD PRN PRN Reason: Consult Stop: 01/26/21 15:25 Morphine Sulfate (Morphine Sulfate 4 Mg/Ml 1 Ml Carp\Vial) 3 mg IV Q4H PRN PRN Reason: Pain Stop: 01/10/21 20:05 Last Admin: 12/27/20 22:02 Dose: 3 mg Documented by: Potassium Chloride (Potassium Chloride Crtab 20 Meq Tabcr) 40 meq PO NOW STA Stop: 12/29/20 07:50 Tamsulosin HCl (Tamsulosin Hcl 0.4 Mg Cap) 0.8 mg PO QPM [facility] Stop: 01/26/21 20:59 Last Admin: 12/28/20 20:55 Dose: 0.8 mg Documented by: Verapamil HCl (Verapamil Hcl 120 Mg Tabcr) 120 mg PO QAM [facility] Stop: 01/27/21 08:59 Vitamin D (Cholecalciferol 1,000 Units 25 Mcg Tab) 4,000 [facility] [place] Stop: 01/27/21 08:59 Last Admin: 12/28/20 08:44 Dose: 4,000 units Documented by:
[2020-12-29 07:52] LABS: Phosphorus 1.4 mg/dl (2.5-4.9)
[2020-12-29] MEDS ORDERED: POTASSIUM CHLORIDE CRTAB 20 MEQ TABCR PO SCH (08:00)
[2020-12-29] MEDS ORDERED: POTASSIUM PHOS 3 MMOL/1 ML INFUSION IV STA (08:04)
[2020-12-29] MEDS: CHOLECALCIFEROL 1,000 UNITS 25 MCG TAB PO SCH (08:37)
[2020-12-29] MEDS: GABAPENTIN 600 MG TAB PO SCH ×2 (08:37→19:55)
[2020-12-29] MEDS: FOLIC ACID 1 MG TAB PO SCH (08:37)
[2020-12-29] MEDS: DULoxetine HCL 60 MG CAP PO SCH (08:37)
[2020-12-29] MEDS: FERROUS SULFATE 325 MG TAB PO SCH (08:37)
[2020-12-29] MEDS: CYANOCOBALAMIN (VITAMIN B-12) 2,500 MCG TAB.SUBL SL SCH (08:37)
[2020-12-29] MEDS: DUTASTERIDE PO SCH (08:38)
[2020-12-29] MEDS: BACLOFEN 10 MG TAB PO SCH ×3 (08:38→19:55)
[2020-12-29] MEDS: ASPIRIN 81 MG ECTAB PO SCH (08:38)
[2020-12-29] MEDS: DULoxetine HCL 30 MG CAP PO SCH (08:38)
[2020-12-29] MEDS: BRIMONIDINE TARTRATE-P 0.15% 5 ML BTL OPL SCH ×3 (08:39→19:54)
[2020-12-29] MEDS: DORZOLAMIDE/TIMOLOL 22.3/6.8MG/ML 10 ML BTL OP SCH ×2 (08:39→19:52)
[2020-12-29] MEDS ORDERED: POTASSIUM PHOSPHATE 21 MMOL in SODIUM CHLORIDE 0.9% 500 ML IV ONE (09:00)
--- NOTE | 2020-12-29 12:09 | Neurology Consultation ---
Date of Consultation December 29, 2020 Assessment & Plan (1) CVA (cerebral vascular accident): 1. CT head lacunar infarct right basal ganglia 2. CTA head and neck- no significant stenosis 3. MRI with and without ordered- waiting clearance from ophthalmology 4. TTE awaiting results. 5. aspirin 81 mg and plavix 75 mg daily x 21 days will need to determine if the is safe with previous bleeding ulcer 2018 - may settle on one plt therapy 6. optimize HTN HLD, DM LDL <70 7. PT/OT speech for discharge needs further recommendations once MRI is completed Supervising Physician Co-Signing Physician Notes Patient was seen and examined. Discussed with Shelli Brito PA-C and agree with recommendations as noted below. A 70 year old male not on ASA with possible TIA. Had brief episode of right sided weakness involving the hand and leg per . Patient does not recollect the leg. Back to baseline. Speech is clear. face symmetric. Strength is 5/5. Agree with dual antiplatelet therapy for 21 days then ASA 81 mg daily and continue. Repeat CT head if unable to clear MRI brain. History of Present Illness Reason for Consultation: CVA Requesting Physician: Matt Jaramillo MD Attending Physician: Matt Jaramillo MD History of Present Illness Jaydon is a 70 year old male with PMH BPH, nephrolithiasis, HLD, glaucoma, light chain disease, anxiety. He presented to [facility] ED for evaluation of confusion and fever. On 12/10/2020, he underwent planned cystoscopy, left ureteroscopy, laser stone destruction, basket stone extraction, and left stent insertion. he also had a large prostate with obstruction with purulent discharge and also underwent TURP. He was discharged with coud catheter in place. He was also discharged on a course of cephalexin and Cipro. Catheter was removed on 12/24. He then developed confusion and mid lower back pain. He was incontinent of urine throughout the night and had a fever of 101.5 this morning with rigors. Urine has been orange in color secondary to taking Pyridium no hematuria. He was found to have a UTI which lead to sepsis. He was eating breakfast and had an event 12/28/2020 and was unable to use his right arm. A stroke alert was called and CT head CTA head and neck was done. He has a history of bleeding ulcer in 2018 so he was not on any antiplt therapy. His is currently bedside and he feels his arm is back to baseline. There was some swelling of the right arm due to a blood draw but that also has resolve. denies tobacco abuse, occasional EtOH use, no other drugs, minimal caffeine use. denies CP, SOB, abdominal pain, one sided weakness, numbness tingling new bowel or bladder issues. Allergies Allergy/AdvReac Type Severity Reaction Status Date / Time doxycycline Allergy Mild Vomiting Verified 12/27/20 12:59 trazodone AdvReac Intermediate DISORIENTED Verified 12/27/20 12:59 NSAIDS (Non-Steroidal AdvReac Mild had Verified 12/27/20 12:59 Anti-Inflamma bleeding ulcer Home Medications Medication Instructions Recorded Confirmed Type acetazolamide 250 mg tablet 250 mg PO QAM 03/26/18 12/27/20 History atorvastatin 20 mg tablet 20 mg PO HS 03/26/18 12/27/20 History cholestyramine (with sugar) 4 gram 4 gm PO HS gm 03/26/18 12/27/20 History oral powder cyanocobalamin (vitamin B-12) 5,000 mcg PO QAM 03/26/18 12/27/20 History 5,000 mcg disintegrating tablet folic acid 1 mg tablet 1 mg PO QAM 03/26/18 12/27/20 History dorzolamide 22.3 mg-timolol 6.8 1 drops OP BID 08/06/18 12/27/20 History mg/mL eye drops gabapentin 600 mg tablet 600 mg PO BID tab 08/06/18 12/27/20 History zolpidem [Ambien] 10 mg PO HS 11/02/18 12/27/20 History baclofen 10 mg tablet 10 mg PO TID tab 04/22/20 12/27/20 History brimonidine 0.1 % eye drops 1 drp OPL TID 04/22/20 12/27/20 History cholecalciferol (vitamin D3) 25 4,000 unit PO QAM cap 04/22/20 12/27/20 History mcg (1,000 unit) capsule coenzyme Q10 200 mg capsule 200 mg PO QAM cap 04/22/20 12/27/20 History duloxetine 60 mg capsule,delayed 60 mg PO QAM cap 04/22/20 12/27/20 History release ferrous sulfate 325 mg (65 mg 325 mg PO QAM 04/22/20 12/27/20 History iron) tablet vitamin E (dl, acetate) 45 mg (100 450 unit PO QAM cap 04/22/20 12/27/20 History unit) capsule phenazopyridine 200 mg tablet 200 mg PO TID PRN 3 Days #9 tab 10/14/20 12/27/20 Rx calcium citrate-vitamin D3 1 tab PO QAM 12/01/20 12/27/20 History dutasteride 0.5 mg PO QAM 12/01/20 12/27/20 History sildenafil 20 mg PO DAILY PRN 12/01/20 12/27/20 History tamsulosin [Flomax] 0.8 mg PO QPM 12/01/20 12/27/20 History vitamin B complex 1 cap PO QAM 12/01/20 12/27/20 History oxybutynin chloride 5 mg PO Q8H PRN #20 tab 12/10/20 12/27/20 Rx oxycodone-acetaminophen 5 mg-325 1 tab PO Q8H PRN #7 tab 12/16/20 12/27/20 Rx mg tablet duloxetine 30 mg PO QAM 12/27/20 12/27/20 History fish,bora,flax oils-om3,6,9no1 1 cap PO QAM 12/27/20 12/27/20 History [[place] 3-6-9] verapamil 120 mg PO QAM 12/27/20 12/27/20 History Patient History Medical History Anxiety BPH loc w urin obs/LUTS Cervical facet syndrome Cervicalgia Chronic back pain GERD (gastroesophageal reflux disease) Well controlled and stable GI bleed 2006 Glaucoma Takes Diamox Hypercholesterolemia Impotence Kidney stones Macular edema Nephrolithiasis Occipital neuralgia Orchitis and epididymitis Retinal vasculitis Rheumatoid arthritis "inactive" per patient Surgical History H/O cataract removal with insertion of prosthetic lens History of abdominal surgery fatty tumor removal below left rib History of bone marrow biopsy History of colonoscopy History of cystoscopy History of detached retina repair History of endoscopic sinus surgery begning cyst bx History of esophagogastroduodenoscopy (EGD) History of left breast biopsy enlarged breast tissue History of surgery left eye shunt History of tonsillectomy and adenoidectomy S/P TURP (transurethral resection of prostate) Family History Father Cancer Mother Cancer Stroke Social History Smoking Status: Never smoker Second Hand Exposure: No; Hx Alcohol Use: Yes Hx Substance Use: No Preferred Language: Lithuanian Communication Ability: Effective 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 Beliefs That Will Affect Care: None marital status: Current Living Situation: Spouse current occupational status: retired Feels Safe at Home: No Is there a partner from a previous relationship who is making you feel unsafe now?: No Assistive Devices: Glasses Review of Systems Review of Systems: All systems reviewed & are unremarkable except as noted in HPI & below Physical Exam Physical Exam: Physical Exam: Constitutional: appearance nourished, healthy Ears, Nose, Mouth and Throat: mucous membranes moist, no injection and skin normal, eyes normal Cardiovascular: normal S-1 and S-2 and regular rate and rhythm Respiratory: clear to auscultation (CTA) Musculoskeletal: no peripheral edema and good distal pulses, no swelling of right hand or arm, catheter in place Skin: no stigmata of neurocutaneous disease noted and normal and intact Eyes: extraocular muscles intact (EOMI) and pupils equal, round and reactive to light (PERRL) NEUROLOGIC EXAMINATION: Mental status: Alert and interactive Oriented to full date and location Oriented to person Speech fluent with no evidence of aphasia Cranial Nerves smile eye brow raise symmetric Reflexes: Deep tendon reflexes were symmetrical and graded 2/5 Sensory: light and cool touch Coordination: finger to nose heel to holcomb intact Gait/Stance: Posture normal. Gait not tested Motor: Negative for pronator drift of out stretched arms with eyes closed. Strength: hand java analyst biceps triceps bilaterally 5/5, hip flex 5/5 bilaterally plantar flex ext 5/5 Results & Data ([facility]) Vital Signs (Past 12 Hours) Vital Signs Temp Pulse Pulse Resp BP Pulse Ox 12/29/20 08:01 38.0 C H 108 H 20 120/65 91 12/29/20 07:33 82 12/29/20 03:35 36.7 C 83 16 116/65 95 Laboratory Results Abnormal lab results 12/28/20 12/29/2021 Range/Units 17:18 06:42 06:42 WBC 13.61 H (4.8-10.8) K/uL RBC 3.27 L (4.7-6.1) M/uL Hgb 10.1 L (14.0-18.0) g/dL Hct 30.6 L (42-52) % RDW Std Deviation 53.7 H (36.4-46.3) fL RDW Coeff of Trung 15.7 H (11.5-14.5) % Chloride 114 H (98-107) mmol/L Carbon Dioxide 15 L (21-32) mmol/L BUN 23 H (7-18) mg/dl Glucose 128 H (70-99) mg/dl POC Glucose 126 H (70-99) mg/dl Calcium 7.7 L (8.5-10.1) mg/dl Phosphorus 1.4 L* (2.5-4.9) mg/dl Diagnostic Findings CT head-No acute intracranial hemorrhage, no midline shift or space occupying lesions. mild interval worsening of atrophic changes of brain parenchyma associated with ex vacuo dilatation of ventricles. Small lacunar infarct or prominent perivascular space within right basal ganglia. CTA head- No evidence of focal occlusion or aneurysmal dilatation. origin of the left posterior cerebral artery and partial origin of the right posterior cerebral artery (with mild diffuse narrowing of right P1 segment), above-mentioned findings likely represent developmental variant. CTA neck-No evidence of hemodynamically significant carotid artery stenosis. Decreased caliber of V4 segments of the right and left vertebral arteries, left worse than right. No focal occlusion seen. No evidence of dissection.
[2020-12-29] MEDS: ACETAMINOPHEN 325 MG TAB PO PRN ×2 (14:58→19:50)
[2020-12-29] MEDS: ADVANCED PROBIOTIC 1250 MG CAPSULE PO SCH (16:43)
--- NOTE | 2020-12-29 18:13 | CT Scan Report ---
CT OF THE HEAD WITHOUT CONTRAST CLINICAL HISTORY: Follow-up cerebrovascular accident. COMPARISON STUDY: Head CT and CTA of the head December 28, 2020. CT DOSE: 638.56 mGycm TECHNIQUE: Helical axial images of the head were obtained without IV contrast. Automated exposure con trol was utilized for the study. A dose lowering technique was utilized adhering to the principles o f ALARA. FINDINGS: No acute intracranial hemorrhage, midline shift or mass effect is present. The ventricular system is unremarkable. The basal cisterns are patent. No extra-axial collections are present. There are no findings to suggest acute dural sinus thrombosis or acute territorial infarct. No significant calvarial abnormalities are present. Visualized portions of the sinuses and mastoid air cells are zehra ar. IMPRESSION: No acute intracranial findings. ACT 112: Negative or not required by law. Electronically signed by: Ramón Lorenzo M.D. 12/29/2020 6:12 PM
[2020-12-29] MEDS: PIPERACILLIN/TAZOBACTAM 4.5 GM in DEXTROSE 5% 100 ML IV SCH (19:45)
[2020-12-29] MEDS: RHOPRESSA: NON-FORMULARY PATIENT'S OWN MED OP SCH (19:54)
[2020-12-29] MEDS: ATORVASTATIN 20 MG TAB PO SCH (19:55)
[2020-12-29] MEDS: TAMSULOSIN HCL 0.4 MG CAP PO SCH (19:56)
[2020-12-29] MEDS: CHOLESTYRAMINE LIGHT 4 GM PKT PO SCH (20:59)
[2020-12-30] MEDS: PIPERACILLIN/TAZOBACTAM 4.5 GM in DEXTROSE 5% 100 ML IV SCH ×2 (03:32→12:47)
[2020-12-30] MEDS: SODIUM CHLORIDE 0.9% 1000ML 1,000 ML IV SCH (04:44)
[2020-12-30 07:10] LABS: Hematocrit (blood only) 29.4 % (42-52); Hemoglobin 9.8 g/dL (14.0-18.0); Mean Corpuscular Hemoglobin 30.8 pg (25-34); Mean Corpuscular Hgb Conc 33.3 g/dL (32-36); Mean Corpuscular Volume 92.5 fL (80-100); Mean Platelet Volume 9.6 fL (7.4-10.4); Platelet Count 181 K/uL (130-400); RDW Coefficient of Variation 15.7 % (11.5-14.5); RDW Standard Deviation 53.9 fL (36.4-46.3); Red Blood Count 3.18 M/uL (4.7-6.1); White Blood Count 10.79 K/uL (4.8-10.8)
[2020-12-30 07:44] LABS: BUN Creatinine Ratio 17.3 (10-20); Est GFR (African American) 70.3 ml/min; Est GFR (Non-African American) 60.7 ml/min; Potassium 3.9 mmol/L (3.5-5.1)
[2020-12-30 07:47] LABS: Phosphorus 1.7 mg/dl (2.5-4.9)
[2020-12-30] MEDS: BACLOFEN 10 MG TAB PO SCH ×3 (08:03→20:53)
[2020-12-30] MEDS: DUTASTERIDE PO SCH (08:03)
[2020-12-30] MEDS: ADVANCED PROBIOTIC 1250 MG CAPSULE PO SCH (08:03)
[2020-12-30] MEDS: CYANOCOBALAMIN (VITAMIN B-12) 2,500 MCG TAB.SUBL SL SCH (08:04)
[2020-12-30] MEDS: GABAPENTIN 600 MG TAB PO SCH ×2 (08:04→20:54)
[2020-12-30] MEDS: BRIMONIDINE TARTRATE-P 0.15% 5 ML BTL OPL SCH ×3 (08:04→20:55)
[2020-12-30] MEDS: DULoxetine HCL 60 MG CAP PO SCH (08:04)
[2020-12-30] MEDS: DULoxetine HCL 30 MG CAP PO SCH (08:05)
[2020-12-30] MEDS: DORZOLAMIDE/TIMOLOL 22.3/6.8MG/ML 10 ML BTL OP SCH ×2 (08:05→20:55)
[2020-12-30] MEDS: FERROUS SULFATE 325 MG TAB PO SCH (08:05)
[2020-12-30] MEDS: FOLIC ACID 1 MG TAB PO SCH (08:06)
[2020-12-30] MEDS: CHOLECALCIFEROL 1,000 UNITS 25 MCG TAB PO SCH (08:06)
[2020-12-30] MEDS: ASPIRIN 81 MG ECTAB PO SCH (08:06)
[2020-12-30] MEDS ORDERED: SODIUM PHOSPHATE 3 MMOL/1 ML INFUSION IV ONE (09:29)
[2020-12-30] MEDS: MoRPHine SULFATE 4 MG/ML 1 ML CARP\\VIAL IV PRN (09:41)
[2020-12-30] MEDS ORDERED: LACTATED RINGER'S 1,000 ML IV SCH (09:45)
[2020-12-30] MEDS ORDERED: SODIUM PHOSPHATE 15 MMOL in SODIUM CHLORIDE 0.9% 250 ML IV ONE (10:00)
[2020-12-30] MEDS ORDERED: VANCOMYCIN TROUGH ONE (11:30)
--- NOTE | 2020-12-30 16:24 | Hospitalist Progress Note ---
Date of Service December 30, 2020 Assessment & Plan (1) Sepsis: (2) Pyelonephritis: Acute pyelonephritis Sepsis Complicated urinary tract infection Pseudomonas aeruginosa bacteremia Acute metabolic encephalopathy -POA H/O recent left stent insertion and TURP procedure --CT ABD:Hypoenhancing focus within the upper pole of the left kidney. This is nonspecific but raise the possibility of pyelonephritis. A renal infarct could appear similar although is less likely given the clinical history. Moderate left perinephric infiltration. Bladder wall thickening with adjacent infiltration could be correlated urinalysis to exclude cystitis. Left ureteral stent in place. No ureteral calculi or fragments. 4 mm left renal calculus. Mild splenomegaly. Trace perisplenic ascites. Trace left pleural effusion. -ECHO: Mild concentric LVH. Left ventricular wall motion is normal. EF 60 to 65%. Mild MR, mild TR, mild pulmonary hypertension is present. The atrial septum is intact with no evidence of ASD. No evidence of valvular vegetation within the scope of managing modality. -Urine, blood culture growing Pseudomonas aeruginosa -IV Zosyn transition to cefepime--continue till 01/03/21 -Plan to transition IV cefepime to ciprofloxacin on 01/04/21 to 02/09/21 -Appreciate neurology, infectious disease Input -Needs follow-up with urology upon discharge (3) Glaucoma: Continue Acetazolamide Hypophosphatemia Metabolic acidosis Replace electrolytes as needed Monitor BMP (4) Anxiety: Continue home medications Strokelike symptoms Possible TIA -Head CT: No acute intracranial hemorrhage, no midline shift or space occupying lesions. Mild interval worsening of atrophic changes of brain parenchyma associated with ex vacuo dilatation of ventricles. Small lacunar infarct or prominent perivascular space within right basal ganglia. -Head CTA: No evidence of focal occlusion or aneurysmal dilatation. origin of the left posterior cerebral artery and partial origin of the right posterior cerebral artery (with mild diffuse narrowing of right P1 segment), above-mentioned findings likely represent developmental variant. -Neck CTA:No evidence of hemodynamically significant carotid artery stenosis. Decreased caliber of V4 segments of the right and left vertebral arteries, left worse than right. No focal occlusion seen. No evidence of dissection. -Repeat CT Head:No acute intracranial findings. -MRI Brain: pending -ECHO as above -Continue aspirin, statin -Given H/O bleeding ulcer in 2018, will avoid Plavix for now -Appreciate neurology input -PT/OT (5) DVT prophylaxis: SCDs for now CODE STATUS Full code Admission and Anticipated Discharge Date Admission Date: December 27, 2020 Subjective Patient is seen and examined at bedside States having chronic right testicular pain Right-sided weakness resolved Denies dysuria, hematuria, flank pain, chest pain, dyspnea, abdominal pain Offers no other complaints Review of Systems Review of Systems: All systems reviewed & are unremarkable except as noted in HPI & below Physical Exam Physical Exam: Physical Exam: Vitals signs as noted above General Appearance:Moderately built and nourished, no apparent distress Head: normocephalic, Atraumatic Eyes: normal inspection, EOMI, Left eye poor vision Neck: supple, Trachea midline Respiratory/Chest: Decreased breath sounds, CTA, No accessory muscle use Cardiovascular: S1, S2, + systolic murmur Abdomen/GI:Soft, Non tender, Bowel sounds present Extremities/Musculoskeletal:normal inspection, no edema Neurologic/Psych:AAOX3, grossly no focal neurological deficits Skin: normal color, warm Results & Data Results & Data ([facility]) Vital Signs (Past 12 Hours) Vital Signs Temp Pulse Pulse Resp BP Pulse Ox 12/30/20 15:47 36.6 C 84 20 116/68 94 12/30/20 15:19 82 12/30/20 11:44 36.3 C L 84 20 104/65 95 12/30/20 07:48 36.6 C 81 18 133/61 94 12/30/20 07:24 84 Laboratory Results Short CBC 12/30/20 Range/Units 06:49 WBC 10.79 (4.8-10.8) K/uL Hgb 9.8 L (14.0-18.0) g/dL Hct 29.4 L (42-52) % Plt Count 181 (130-400) K/uL BMP 12/30/20 06:49 Sodium 142 Potassium 3.9 Chloride 118 H Carbon Dioxide 15 L BUN 21 H Creatinine 1.19 Glucose 102 H Calcium 8.0 L
--- NOTE | 2020-12-30 17:18 | Neurology Progress Note ---
Date of Service December 30, 2020 Assessment & Plan (1) TIA (transient ischemic attack): A pleasant 70-year-old male treated for urinary tract infection and noted to have some intermittent right upper and right lower extremity weakness. Symptoms have since resolved. Patient has been back to baseline. CT head noncontrast shows no signs of a hemorrhage or acute intracranial process. No clear or obvious signs of a lacunar stroke. Unable to get MRI at this time due to previous eye surgery. At this point my recommendation would be to treat this is a possible TIA. I recommend aspirin 81 mg daily and Plavix 75 mg daily for 3 weeks. We will then stop the Plavix and continue the aspirin 81 mg daily. Otherwise continue home statin Lipitor 20 mg daily. Blood pressure is currently well controlled with systolic blood pressure 116/68. Otherwise patient is safe to be discharged from neurology standpoint. Please contact me with any additional questions or concerns. Outpatient follow-up with neurology in 8 weeks. Admission and Anticipated Discharge Date Admission Date: December 27, 2020 Subjective Patient was seen and examined this afternoon. is at bedside. Patient d enies any new complaints or concerns. Patient reports no weakness in his right hand. He is improving. Hopeful to be discharged this weekend. He was unable to get MRI of the brain due to a previous eye surgery. Repeat CT head noncontrast was performed. Physical Exam Physical Exam: Patient is awake alert oriented to person place and time his speech is clear his comprehension is intact he is following simple commands he sitting upright in bed appears very pleasant his face is symmetric tongue is midline eyes are midline extraocular muscles are intact he has no tremor or myoclonic jerks no drift in the upper extremities muscle strength is symmetric 5 out of 5 throughout he has no ataxia with [id number] testing sensation is intact to light touch. Results & Data ([facility]) Vital Signs (Past 12 Hours) Vital Signs Temp Pulse Pulse Resp BP Pulse Ox 12/30/20 15:47 36.6 C 84 20 116/68 94 12/30/20 15:19 82 12/30/20 11:44 36.3 C L 84 20 104/65 95 12/30/20 07:48 36.6 C 81 18 133/61 94 12/30/20 07:24 84
--- NOTE | 2020-12-30 19:04 | Magnetic Resonance Report ---
MRI OF THE BRAIN WITHOUT IV CONTRAST CLINICAL HISTORY: Strokelike symptoms. COMPARISON STUDY: CT of the brain dated 12/29/2020. TECHNIQUE: MRI of the brain was performed utilizing various T1 and T2-weighted sequences in the axial , sagittal, and coronal planes. IV contrast was not administered for this examination. FINDINGS: Brain parenchyma: There is mild age-related involutional change. There is no hemorrhage or mass effec t. There is no restricted diffusion to suggest acute ischemia. Verdin-white matter differentiation is p reserved. No extra-axial fluid collection is seen. The cerebellar tonsils are normal in configuration . Ventricles, sulci, and cisterns: Prominent secondary to involutional change. Pituitary and sella: Unremarkable. Intracranial vasculature: Normal flow voids are maintained at the skull base. Orbits: The bony orbits are grossly intact. Orbital contents are normal in appearance noting bilatera l ocular lens implants. Sinuses and mastoids: The paranasal sinuses are clear. There is trace left mastoid effusion. Calvarium: Unremarkable. Cervical cord: Partially visualized cervical spinal cord is normal in morphology and signal intensity . IMPRESSION: No acute intracranial abnormality. ACT 112: Negative or not required by law. Electronically signed by: Kevin Villavicencio M.D. 12/30/2020 7:03 PM
[2020-12-30] MEDS: TAMSULOSIN HCL 0.4 MG CAP PO SCH (20:54)
[2020-12-30] MEDS: ATORVASTATIN 20 MG TAB PO SCH (20:54)
[2020-12-30] MEDS: RHOPRESSA: NON-FORMULARY PATIENT'S OWN MED OP SCH (20:56)
[2020-12-30] MEDS ORDERED: CIPROFLOXACIN 500 MG TAB PO SCH (21:00)
[2020-12-30] MEDS: CEFEPIME 2,000 MG in SYRINGE 0 ML IV SCH (21:00)
[2020-12-30] MEDS: CHOLESTYRAMINE LIGHT 4 GM PKT PO SCH (21:00)
[2020-12-31 06:56] LABS: Hematocrit (blood only) 29.8 % (42-52); Hemoglobin 9.5 g/dL (14.0-18.0); Mean Corpuscular Hemoglobin 30.1 pg (25-34); Mean Corpuscular Hgb Conc 31.9 g/dL (32-36); Mean Corpuscular Volume 94.3 fL (80-100); Mean Platelet Volume 9.3 fL (7.4-10.4); Platelet Count 207 K/uL (130-400); RDW Coefficient of Variation 15.7 % (11.5-14.5); RDW Standard Deviation 54.6 fL (36.4-46.3); Red Blood Count 3.16 M/uL (4.7-6.1); White Blood Count 9.17 K/uL (4.8-10.8)
[2020-12-31 07:36] LABS: BUN Creatinine Ratio 17.5 (10-20); Calcium 8.4 mg/dl (8.5-10.1); Creatinine Clr Calc Pharmacy 45.8 ml/min; Est GFR (African American) 68.2 ml/min; Est GFR (Non-African American) 58.9 ml/min; Phosphorus 2.2 mg/dl (2.5-4.9); Potassium 3.7 mmol/L (3.5-5.1)
[2020-12-31] MEDS: DUTASTERIDE PO SCH (07:50)
[2020-12-31] MEDS: DULoxetine HCL 60 MG CAP PO SCH (07:51)
[2020-12-31] MEDS: FERROUS SULFATE 325 MG TAB PO SCH (07:51)
[2020-12-31] MEDS: ADVANCED PROBIOTIC 1250 MG CAPSULE PO SCH (07:51)
[2020-12-31] MEDS: FOLIC ACID 1 MG TAB PO SCH (07:51)
[2020-12-31] MEDS: VERAPAMIL HCL 120 MG TABCR PO SCH (07:51)
[2020-12-31] MEDS: GABAPENTIN 600 MG TAB PO SCH ×2 (07:51→20:55)
[2020-12-31] MEDS: DULoxetine HCL 30 MG CAP PO SCH (07:51)
[2020-12-31] MEDS: ASPIRIN 81 MG ECTAB PO SCH (07:52)
[2020-12-31] MEDS: acetaZOLAMIDE 250 MG TAB PO SCH (07:52)
[2020-12-31] MEDS: CYANOCOBALAMIN (VITAMIN B-12) 2,500 MCG TAB.SUBL SL SCH (07:53)
[2020-12-31] MEDS: CHOLECALCIFEROL 1,000 UNITS 25 MCG TAB PO SCH (07:53)
[2020-12-31] MEDS: BACLOFEN 10 MG TAB PO SCH ×3 (07:53→20:56)
[2020-12-31] MEDS: DORZOLAMIDE/TIMOLOL 22.3/6.8MG/ML 10 ML BTL OP SCH ×2 (07:54→20:55)
[2020-12-31] MEDS: BRIMONIDINE TARTRATE-P 0.15% 5 ML BTL OPL SCH ×3 (07:54→20:54)
[2020-12-31] MEDS: CEFEPIME 2,000 MG in SYRINGE 0 ML IV SCH ×2 (07:59→20:59)
[2020-12-31] MEDS ORDERED: POTASSIUM PHOS 3 MMOL/1 ML INFUSION IV ONE (09:43)
[2020-12-31] MEDS ORDERED: POTASSIUM PHOSPHATE 15 MMOL in SODIUM CHLORIDE 0.9% 250 ML IV ONE (10:00)
--- NOTE | 2020-12-31 15:12 | Ultrasound Report ---
ULTRASOUND TESTES AND SCROTUM CLINICAL HISTORY: Right testicular pain. COMPARISON STUDY: Scrotal ultrasound dated 10/08/2020. TECHNIQUE: Real-time, grayscale, and color Doppler sonography of the testes and scrotum is performed. Images are reviewed in the transverse and longitudinal planes. FINDINGS: The testes are normal in size and homogeneous in echotexture. The right testis measures 4.0 x 2.8 x 2 .8 cm and the left testis measures 3.6 x 2.3 x 2.5 cm. No intratesticular mass is seen. Testicular bl ood flow is normal and symmetric. Normal Doppler waveforms are identified in both testes. The epididymal heads are normal in appearance. The right epididymal head measures 1.1 cm in length an d the left epididymal head measures 1.1 cm in length. Left-sided epididymal cysts measure up to 1.6 c m. No varicocele or hydrocele is seen. IMPRESSION: No acute sonographic abnormality is seen involving the testes or scrotum. ACT 112: Negative or not required by law. Electronically signed by: Kevin Villavicencio M.D. 12/31/2020 3:10 PM
--- NOTE | 2020-12-31 18:27 | Hospitalist Progress Note ---
Date of Service December 31, 2020 Assessment & Plan (1) Sepsis: (2) Pyelonephritis: Acute pyelonephritis Sepsis Complicated urinary tract infection Pseudomonas aeruginosa bacteremia Acute metabolic encephalopathy -POA H/O recent left stent insertion and TURP procedure --CT ABD:Hypoenhancing focus within the upper pole of the left kidney. This is nonspecific but raise the possibility of pyelonephritis. A renal infarct could appear similar although is less likely given the clinical history. Moderate left perinephric infiltration. Bladder wall thickening with adjacent infiltration could be correlated urinalysis to exclude cystitis. Left ureteral stent in place. No ureteral calculi or fragments. 4 mm left renal calculus. Mild splenomegaly. Trace perisplenic ascites. Trace left pleural effusion. -ECHO: Mild concentric LVH. Left ventricular wall motion is normal. EF 60 to 65%. Mild MR, mild TR, mild pulmonary hypertension is present. The atrial septum is intact with no evidence of ASD. No evidence of valvular vegetation within the scope of managing modality. -Urine, blood culture growing Pseudomonas aeruginosa -IV Zosyn transition to cefepime--continue till 01/03/21 -Plan to transition IV cefepime to ciprofloxacin on 01/04/21 to 02/09/21 -Appreciate neurology, infectious disease Input -Needs follow-up with urology upon discharge Continue current medications to complete IV diabetic course Scrotal swelling Chronic right testicular pain Scrotal USD:No acute sonographic abnormality is seen involving the testes or scrotum. Urology on board (3) Glaucoma: Continue Acetazolamide Hypophosphatemia Metabolic acidosis Replace electrolytes as needed Monitor BMP (4) Anxiety: Continue home medications Strokelike symptoms Possible TIA -Head CT: No acute intracranial hemorrhage, no midline shift or space occupying lesions. Mild interval worsening of atrophic changes of brain parenchyma associated with ex vacuo dilatation of ventricles. Small lacunar infarct or prominent perivascular space within right basal ganglia. -Head CTA: No evidence of focal occlusion or aneurysmal dilatation. origin of the left posterior cerebral artery and partial origin of the right posterior cerebral artery (with mild diffuse narrowing of right P1 segment), above-mentioned findings likely represent developmental variant. -Neck CTA:No evidence of hemodynamically significant carotid artery stenosis. Decreased caliber of V4 segments of the right and left vertebral arteries, left worse than right. No focal occlusion seen. No evidence of dissection. -Repeat CT Head:No acute intracranial findings. -MRI Brain: No acute intracranial abnormality. -ECHO as above -Continue aspirin, statin -Given H/O bleeding ulcer in 2018, will avoid Plavix for now -Appreciate neurology input -PT/OT -Needs follow-up with neurology upon discharge (5) DVT prophylaxis: SCDs for now CODE STATUS Full code Admission and Anticipated Discharge Date Admission Date: December 27, 2020 Subjective Patient is seen and examined at bedside Complains of increasing scrotal swelling Scrotal ultrasound showed no abnormality Has chronic right testicular pain Denies dysuria, hematuria, flank pain, chest pain, dyspnea, abdominal pain No recurrence of focal weakness Review of Systems Review of Systems: ROS per HPI, all other systems reviewed and negative Physical Exam Physical Exam: Physical Exam: Vitals signs as noted above General Appearance:Moderately built and nourished, no apparent distress Head: normocephalic, Atraumatic Eyes: normal inspection, EOMI, Left eye poor vision Neck: supple, Trachea midline Respiratory/Chest: Decreased breath sounds, CTA, No accessory muscle use Cardiovascular: S1, S2, + systolic murmur Abdomen/GI:Soft, Non tender, Bowel sounds present Extremities/Musculoskeletal:normal inspection, no edema Neurologic/Psych:AAOX3, grossly no focal neurological deficits Skin: normal color, warm Results & Data Results & Data ([facility]) Vital Signs (Past 12 Hours) Vital Signs Temp Pulse Pulse Resp BP BP Pulse Ox 12/31/20 16:35 85 12/31/20 15:07 36.4 C L 71 18 117/69 98 12/31/20 10:49 36.7 C 86 18 118/73 96 12/31/20 08:00 75 12/31/20 07:30 36.5 C 89 17 129/71 95 Laboratory Results Short CBC 12/31/20 Range/Units 06:28 WBC 9.17 (4.8-10.8) K/uL Hgb 9.5 L (14.0-18.0) g/dL Hct 29.8 L (42-52) % Plt Count 207 (130-400) K/uL BMP 12/31/20 06:28 Sodium 142 Potassium 3.7 Chloride 116 H Carbon Dioxide 19 L BUN 21 H Creatinine 1.22 Glucose 101 H Calcium 8.4 L
[2020-12-31] MEDS: RHOPRESSA: NON-FORMULARY PATIENT'S OWN MED OP SCH (20:55)
[2020-12-31] MEDS: ATORVASTATIN 20 MG TAB PO SCH (20:56)
[2020-12-31] MEDS: TAMSULOSIN HCL 0.4 MG CAP PO SCH (20:56)
[2020-12-31] MEDS: CHOLESTYRAMINE LIGHT 4 GM PKT PO SCH (20:59)
[2021-01-01 06:01] LABS: Hematocrit (blood only) 30.1 % (42-52); Hemoglobin 9.7 g/dL (14.0-18.0); Mean Corpuscular Hemoglobin 30.7 pg (25-34); Mean Corpuscular Hgb Conc 32.2 g/dL (32-36); Mean Corpuscular Volume 95.3 fL (80-100); Mean Platelet Volume 9.5 fL (7.4-10.4); Platelet Count 240 K/uL (130-400); RDW Coefficient of Variation 15.6 % (11.5-14.5); RDW Standard Deviation 54.9 fL (36.4-46.3); Red Blood Count 3.16 M/uL (4.7-6.1); White Blood Count 8.22 K/uL (4.8-10.8)
[2021-01-01 06:27] LABS: BUN Creatinine Ratio 19.2 (10-20); Calcium 8.4 mg/dl (8.5-10.1); Creatinine Clr Calc Pharmacy 45.8 ml/min; Est GFR (African American) 68.2 ml/min; Est GFR (Non-African American) 58.9 ml/min; Potassium 3.8 mmol/L (3.5-5.1)
[2021-01-01 06:35] LABS: Phosphorus 2.8 mg/dl (2.5-4.9)
[2021-01-01] MEDS: BACLOFEN 10 MG TAB PO SCH ×3 (08:26→20:43)
[2021-01-01] MEDS: CYANOCOBALAMIN (VITAMIN B-12) 2,500 MCG TAB.SUBL SL SCH (08:26)
[2021-01-01] MEDS: CHOLECALCIFEROL 1,000 UNITS 25 MCG TAB PO SCH (08:26)
[2021-01-01] MEDS: VERAPAMIL HCL 120 MG TABCR PO SCH (08:27)
[2021-01-01] MEDS: ADVANCED PROBIOTIC 1250 MG CAPSULE PO SCH (08:27)
[2021-01-01] MEDS: DORZOLAMIDE/TIMOLOL 22.3/6.8MG/ML 10 ML BTL OP SCH ×2 (08:28→20:41)
[2021-01-01] MEDS: acetaZOLAMIDE 250 MG TAB PO SCH (08:28)
[2021-01-01] MEDS: ASPIRIN 81 MG ECTAB PO SCH (08:28)
[2021-01-01] MEDS: FOLIC ACID 1 MG TAB PO SCH (08:28)
[2021-01-01] MEDS: DULoxetine HCL 60 MG CAP PO SCH (08:28)
[2021-01-01] MEDS: DUTASTERIDE PO SCH (08:28)
[2021-01-01] MEDS: DULoxetine HCL 30 MG CAP PO SCH (08:28)
[2021-01-01] MEDS: GABAPENTIN 600 MG TAB PO SCH ×2 (08:28→20:42)
[2021-01-01] MEDS: FERROUS SULFATE 325 MG TAB PO SCH (08:28)
[2021-01-01] MEDS: BRIMONIDINE TARTRATE-P 0.15% 5 ML BTL OPL SCH ×3 (08:29→20:41)
[2021-01-01] MEDS: CEFEPIME 2,000 MG in SYRINGE 0 ML IV SCH ×2 (08:31→20:41)
--- NOTE | 2021-01-01 16:44 | Hospitalist Progress Note ---
Date of Service January 01, 2021 Assessment & Plan (1) Sepsis: (2) Pyelonephritis: Acute pyelonephritis Sepsis Complicated urinary tract infection Pseudomonas aeruginosa bacteremia Acute metabolic encephalopathy -POA H/O recent left stent insertion and TURP procedure --CT ABD:Hypoenhancing focus within the upper pole of the left kidney. This is nonspecific but raise the possibility of pyelonephritis. A renal infarct could appear similar although is less likely given the clinical history. Moderate left perinephric infiltration. Bladder wall thickening with adjacent infiltration could be correlated urinalysis to exclude cystitis. Left ureteral stent in place. No ureteral calculi or fragments. 4 mm left renal calculus. Mild splenomegaly. Trace perisplenic ascites. Trace left pleural effusion. -ECHO: Mild concentric LVH. Left ventricular wall motion is normal. EF 60 to 65%. Mild MR, mild TR, mild pulmonary hypertension is present. The atrial septum is intact with no evidence of ASD. No evidence of valvular vegetation within the scope of managing modality. -Urine, blood culture growing Pseudomonas aeruginosa -IV Zosyn transition to cefepime--continue till 01/03/21 -Plan to transition IV cefepime to ciprofloxacin on 01/04/21 to 02/09/21 -Appreciate neurology, infectious disease Input -Needs follow-up with urology upon discharge Scrotal swelling Chronic right testicular pain Scrotal USD:No acute sonographic abnormality is seen involving the testes or scr otum. Appreciate urology input Refused nerve block and pain management consult as the past Advised to follow-up with urology as outpatient (3) Glaucoma: Continue Acetazolamide Hypophosphatemia Metabolic acidosis Replace electrolytes as needed Monitor BMP (4) Anxiety: Continue home medications Strokelike symptoms Possible TIA -Head CT: No acute intracranial hemorrhage, no midline shift or space occupying lesions. Mild interval worsening of atrophic changes of brain parenchyma associated with ex vacuo dilatation of ventricles. Small lacunar infarct or prominent perivascular space within right basal ganglia. -Head CTA: No evidence of focal occlusion or aneurysmal dilatation. origin of the left posterior cerebral artery and partial origin of the right posterior cerebral artery (with mild diffuse narrowing of right P1 segment), above-mentioned findings likely represent developmental variant. -Neck CTA:No evidence of hemodynamically significant carotid artery stenosis. Decreased caliber of V4 segments of the right and left vertebral arteries, left worse than right. No focal occlusion seen. No evidence of dissection. -Repeat CT Head:No acute intracranial findings. -MRI Brain: No acute intracranial abnormality. -ECHO as above -Continue aspirin, statin -Given H/O bleeding ulcer in 2018, will avoid Plavix for now -Appreciate neurology input -PT/OT: Recommends Rehab -Needs follow-up with neurology upon discharge (5) DVT prophylaxis: SCDs Heparin SQ CODE STATUS Full code Disposition PT OT recommends rehab Case management following Admission and Anticipated Discharge Date Admission Date: December 27, 2020 Subjective Patient is seen and examined at bedside Scrotal swelling better today Discussed with urology today States having mild right hip soreness Has chronic right testicular pain Denies dysuria, hematuria, flank pain, chest pain, dyspnea, abdominal pain Review of Systems Review of Systems: All systems reviewed & are unremarkable except as noted in HPI & below Physical Exam Physical Exam: Physical Exam: Vitals signs as noted above General Appearance:Moderately built and nourished, no apparent distress Head: normocephalic, Atraumatic Eyes: normal inspection, EOMI, Left eye poor vision Neck: supple, Trachea midline Respiratory/Chest: Decreased breath sounds, CTA, No accessory muscle use Cardiovascular: S1, S2, + systolic murmur Abdomen/GI:Soft, Non tender, Bowel sounds present Extremities/Musculoskeletal:normal inspection, no edema Neurologic/Psych:AAOX3, grossly no focal neurological deficits Skin: normal color, warm Results & Data Results & Data ([facility]) Vital Signs (Past 12 Hours) Vital Signs Temp Pulse Pulse Resp BP BP Pulse Ox 01/01/21 10:38 86 18 93/55 L 97 01/01/21 08:00 36.5 C 72 87 18 119/67 95 Laboratory Results Short CBC 01/01/21 Range/Units 05:26 WBC 8.22 (4.8-10.8) K/uL Hgb 9.7 L (14.0-18.0) g/dL Hct 30.1 L (42-52) % Plt Count 240 (130-400) K/uL BMP 01/01/21 05:26 Sodium 143 Potassium 3.8 Chloride 116 H Carbon Dioxide 21 BUN 23 H Creatinine 1.22 Glucose 93 Calcium 8.4 L
[2021-01-01] MEDS: RHOPRESSA: NON-FORMULARY PATIENT'S OWN MED OP SCH (20:41)
[2021-01-01] MEDS: TAMSULOSIN HCL 0.4 MG CAP PO SCH (20:42)
[2021-01-01] MEDS: ATORVASTATIN 20 MG TAB PO SCH (20:42)
[2021-01-01] MEDS: HEPARIN SOD 5,000 UNIT/0.5 ML VIAL SQ SCH (20:45)
[2021-01-01] MEDS: CHOLESTYRAMINE LIGHT 4 GM PKT PO SCH (21:56)
[2021-01-02 06:11] LABS: BUN Creatinine Ratio 19.7 (10-20); Calcium 8.3 mg/dl (8.5-10.1); Est GFR (Non-African American) 56.1 ml/min; Potassium 3.8 mmol/L (3.5-5.1)
[2021-01-02] MEDS: FOLIC ACID 1 MG TAB PO SCH (09:43)
[2021-01-02] MEDS: FERROUS SULFATE 325 MG TAB PO SCH (09:43)
[2021-01-02] MEDS: ASPIRIN 81 MG ECTAB PO SCH (09:43)
[2021-01-02] MEDS: ADVANCED PROBIOTIC 1250 MG CAPSULE PO SCH (09:43)
[2021-01-02] MEDS: DULoxetine HCL 60 MG CAP PO SCH (09:43)
[2021-01-02] MEDS: BACLOFEN 10 MG TAB PO SCH ×3 (09:43→19:55)
[2021-01-02] MEDS: VERAPAMIL HCL 120 MG TABCR PO SCH (09:43)
[2021-01-02] MEDS: GABAPENTIN 600 MG TAB PO SCH ×2 (09:43→19:55)
[2021-01-02] MEDS: DULoxetine HCL 30 MG CAP PO SCH (09:43)
[2021-01-02] MEDS: acetaZOLAMIDE 250 MG TAB PO SCH (09:43)
[2021-01-02] MEDS: CEFEPIME 2,000 MG in SYRINGE 0 ML IV SCH ×2 (09:44→19:53)
[2021-01-02] MEDS: BRIMONIDINE TARTRATE-P 0.15% 5 ML BTL OPL SCH ×3 (09:44→19:55)
[2021-01-02] MEDS: DORZOLAMIDE/TIMOLOL 22.3/6.8MG/ML 10 ML BTL OP SCH ×2 (09:44→19:55)
[2021-01-02] MEDS: CHOLECALCIFEROL 1,000 UNITS 25 MCG TAB PO SCH (09:44)
[2021-01-02] MEDS: DUTASTERIDE PO SCH (09:45)
[2021-01-02] MEDS: CYANOCOBALAMIN (VITAMIN B-12) 2,500 MCG TAB.SUBL SL SCH (09:45)
[2021-01-02] MEDS: HEPARIN SOD 5,000 UNIT/0.5 ML VIAL SQ SCH ×2 (09:46→19:54)
--- NOTE | 2021-01-02 15:09 | Hospitalist Progress Note ---
Date of Service January 02, 2021 Assessment & Plan (1) Sepsis: (2) Pyelonephritis: Acute pyelonephritis Sepsis Complicated urinary tract infection Pseudomonas aeruginosa bacteremia Acute metabolic encephalopathy -POA H/O recent left stent insertion and TURP procedure --CT ABD:Hypoenhancing focus within the upper pole of the left kidney. This is nonspecific but raise the possibility of pyelonephritis. A renal infarct could appear similar although is less likely given the clinical history. Moderate left perinephric infiltration. Bladder wall thickening with adjacent infiltration could be correlated urinalysis to exclude cystitis. Left ureteral stent in place. No ureteral calculi or fragments. 4 mm left renal calculus. Mild splenomegaly. Trace perisplenic ascites. Trace left pleural effusion. -ECHO: Mild concentric LVH. Left ventricular wall motion is normal. EF 60 to 65%. Mild MR, mild TR, mild pulmonary hypertension is present. The atrial septum is intact with no evidence of ASD. No evidence of valvular vegetation within the scope of managing modality. -Urine, blood culture growing Pseudomonas aeruginosa -IV Zosyn transition to cefepime--continue till 01/03/21 -Plan to transition IV cefepime to ciprofloxacin on 01/04/21 to 02/09/21 -Appreciate neurology, infectious disease Input -Needs follow-up with urology upon discharge Continue current medications Scrotal swelling Chronic right testicular pain Scrotal USD:No acute sonographic abnormality is seen involving the testes or scrotum. Appreciate urology input Refused nerve block and pain management consult as the past Advised to follow-up with urology as outpatient Slowly improving (3) Glaucoma: Continue Acetazolamide Hypophosphatemia Metabolic acidosis Replace electrolytes as needed Monitor BMP (4) Anxiety: Continue home medications Strokelike symptoms Possible TIA -Head CT: No acute intracranial hemorrhage, no midline shift or space occupying lesions. Mild interval worsening of atrophic changes of brain parenchyma associated with ex vacuo dilatation of ventricles. Small lacunar infarct or prominent perivascular space within right basal ganglia. -Head CTA: No evidence of focal occlusion or aneurysmal dilatation. origin of the left posterior cerebral artery and partial origin of the right posterior cerebral artery (with mild diffuse narrowing of right P1 segment), above-mentioned findings likely represent developmental variant. -Neck CTA:No evidence of hemodynamically significant carotid artery stenosis. Decreased caliber of V4 segments of the right and left vertebral arteries, left worse than right. No focal occlusion seen. No evidence of dissection. -Repeat CT Head:No acute intracranial findings. -MRI Brain: No acute intracranial abnormality. -ECHO as above -Continue aspirin, statin -Given H/O bleeding ulcer in 2018, will avoid Plavix for now -Appreciate neurology input -PT/OT: Recommends Rehab -Needs follow-up with neurology upon discharge (5) DVT prophylaxis: SCDs Heparin SQ CODE STATUS Full code Disposition PT OT recommends rehab Case management following Admission and Anticipated Discharge Date Admission Date: December 27, 2020 Subjective Patient is seen and examined at bedside No new complaints Scrotal swelling continues to improve Chronic right testicular pain Denies dysuria, hematuria, flank pain, chest pain, dyspnea, abdominal pain Review of Systems Review of Systems: All systems reviewed & are unremarkable except as noted in HPI & below Physical Exam Physical Exam: Physical Exam: Vitals signs as noted above General Appearance:Moderately built and nourished, no apparent distress Head: normocephalic, Atraumatic Eyes: normal inspection, EOMI, Left eye poor vision Neck: supple, Trachea midline Respiratory/Chest: Decreased breath sounds, CTA, No accessory muscle use Cardiovascular: S1, S2, + systolic murmur Abdomen/GI:Soft, Non tender, Bowel sounds present Extremities/Musculoskeletal:normal inspection, no edema Neurologic/Psych:AAOX3, grossly no focal neurological deficits Skin: normal color, warm Results & Data Results & Data ([facility]) Vital Signs (Past 12 Hours) Vital Signs Temp Pulse Pulse Resp BP Pulse Ox 01/02/21 11:57 36.8 C 79 18 92/54 L 96 01/02/21 09:00 63 01/02/21 08:09 36.6 C 84 18 109/52 L 95 01/02/21 03:27 36.6 C 78 18 114/70 93 Laboratory Results [facility] 01/02/21 05:26 Sodium 143 Potassium 3.8 Chloride 113 H Carbon Dioxide 21 BUN 25 H Creatinine 1.27 Glucose 92 Calcium 8.3 L
[2021-01-02] MEDS: TAMSULOSIN HCL 0.4 MG CAP PO SCH (19:54)
[2021-01-02] MEDS: ATORVASTATIN 20 MG TAB PO SCH (19:55)
[2021-01-02] MEDS: RHOPRESSA: NON-FORMULARY PATIENT'S OWN MED OP SCH (19:56)
[2021-01-02] MEDS: CHOLESTYRAMINE LIGHT 4 GM PKT PO SCH (21:04)
[2021-01-03 06:50] LABS: Hematocrit (blood only) 27.8 % (42-52); Hemoglobin 8.9 g/dL (14.0-18.0); Mean Corpuscular Hemoglobin 30.4 pg (25-34); Mean Corpuscular Volume 94.9 fL (80-100); Mean Platelet Volume 9.1 fL (7.4-10.4); Platelet Count 298 K/uL (130-400); RDW Coefficient of Variation 15.5 % (11.5-14.5); RDW Standard Deviation 53.2 fL (36.4-46.3); Red Blood Count 2.93 M/uL (4.7-6.1); White Blood Count 9.53 K/uL (4.8-10.8)
[2021-01-03 07:21] LABS: BUN Creatinine Ratio 22.6 (10-20); Calcium 8.2 mg/dl (8.5-10.1); Est GFR (African American) 70.3 ml/min; Est GFR (Non-African American) 60.7 ml/min
[2021-01-03] MEDS: CEFEPIME 2,000 MG in SYRINGE 0 ML IV SCH ×2 (09:29→20:54)
[2021-01-03] MEDS: BACLOFEN 10 MG TAB PO SCH ×3 (09:29→20:59)
[2021-01-03] MEDS: GABAPENTIN 600 MG TAB PO SCH ×2 (09:30→20:55)
[2021-01-03] MEDS: FERROUS SULFATE 325 MG TAB PO SCH (09:30)
[2021-01-03] MEDS: FOLIC ACID 1 MG TAB PO SCH (09:31)
[2021-01-03] MEDS: DULoxetine HCL 30 MG CAP PO SCH (09:34)
[2021-01-03] MEDS: acetaZOLAMIDE 250 MG TAB PO SCH (09:34)
[2021-01-03] MEDS: VERAPAMIL HCL 120 MG TABCR PO SCH (09:34)
[2021-01-03] MEDS: ADVANCED PROBIOTIC 1250 MG CAPSULE PO SCH (09:34)
[2021-01-03] MEDS: CHOLECALCIFEROL 1,000 UNITS 25 MCG TAB PO SCH (09:35)
[2021-01-03] MEDS: DULoxetine HCL 60 MG CAP PO SCH (09:35)
[2021-01-03] MEDS: CYANOCOBALAMIN (VITAMIN B-12) 2,500 MCG TAB.SUBL SL SCH (09:36)
[2021-01-03] MEDS: ASPIRIN 81 MG ECTAB PO SCH (09:36)
[2021-01-03] MEDS: DORZOLAMIDE/TIMOLOL 22.3/6.8MG/ML 10 ML BTL OP SCH ×2 (09:37→20:55)
[2021-01-03] MEDS: BRIMONIDINE TARTRATE-P 0.15% 5 ML BTL OPL SCH ×3 (09:40→20:54)
[2021-01-03] MEDS: HEPARIN SOD 5,000 UNIT/0.5 ML VIAL SQ SCH (09:41)
[2021-01-03] MEDS: DUTASTERIDE PO SCH (09:41)
[2021-01-03 16:43] LABS: Hematocrit (blood only) 28.6 % (42-52)
--- NOTE | 2021-01-03 17:06 | Hospitalist Progress Note ---
Date of Service January 03, 2021 Assessment & Plan (1) Sepsis: (2) Pyelonephritis: Acute pyelonephritis Sepsis Complicated urinary tract infection Pseudomonas aeruginosa bacteremia Acute metabolic encephalopathy -POA H/O recent left stent insertion and TURP procedure --CT ABD:Hypoenhancing focus within the upper pole of the left kidney. This is nonspecific but raise the possibility of pyelonephritis. A renal infarct could appear similar although is less likely given the clinical history. Moderate left perinephric infiltration. Bladder wall thickening with adjacent infiltration could be correlated urinalysis to exclude cystitis. Left ureteral stent in place. No ureteral calculi or fragments. 4 mm left renal calculus. Mild splenomegaly. Trace perisplenic ascites. Trace left pleural effusion. -ECHO: Mild concentric LVH. Left ventricular wall motion is normal. EF 60 to 65%. Mild MR, mild TR, mild pulmonary hypertension is present. The atrial septum is intact with no evidence of ASD. No evidence of valvular vegetation within the scope of managing modality. -Urine, blood culture growing Pseudomonas aeruginosa -IV Zosyn transition to cefepime--continue till 01/03/21 -Plan to transition IV cefepime to ciprofloxacin on 01/04/21 to 02/09/21 -Appreciate neurology, infectious disease Input -Needs follow-up with urology upon discharge Improved Scrotal swelling Chronic right testicular pain Scrotal USD:No acute sonographic abnormality is seen involving the testes or scrotum. Appreciate urology input Refused nerve block and pain management consult as the past Advised to follow-up with urology as outpatient Scrotal swelling much improved (3) Glaucoma: Continue Acetazolamide Anemia of chronic disease H/O Iron deficiency Denies any bleeding issues currently Minimize blood draws Fecal occult, anemia work-up ordered Hypophosphatemia Metabolic acidosis Replace electrolytes as needed Monitor BMP (4) Anxiety: Continue home medications Strokelike symptoms Possible TIA -Head CT: No acute intracranial hemorrhage, no midline shift or space occupying lesions. Mild interval worsening of atrophic changes of brain parenchyma associated with ex vacuo dilatation of ventricles. Small lacunar infarct or prominent perivascular space within right basal ganglia. -Head CTA: No evidence of focal occlusion or aneurysmal dilatation. origin of the left posterior cerebral artery and partial origin of the right posterior cerebral artery (with mild diffuse narrowing of right P1 segment), above-mentioned findings likely represent developmental variant. -Neck CTA:No evidence of hemodynamically significant carotid artery stenosis. Decreased caliber of V4 segments of the right and left vertebral arteries, left worse than right. No focal occlusion seen. No evidence of dissection. -Repeat CT Head:No acute intracranial findings. -MRI Brain: No acute intracranial abnormality. -ECHO as above -Continue aspirin, statin -Given H/O bleeding ulcer in 2018, will avoid Plavix for now -Appreciate neurology input -PT/OT: Prefers to be discharged home with home health -Needs follow-up with neurology upon discharge (5) DVT prophylaxis: SCDs Heparin SQ on hold due to anemia CODE STATUS Full code Disposition Home as able Admission and Anticipated Discharge Date Admission Date: December 27, 2020 Subjective Patient is seen and examined at bedside Scrotal swelling much improved No significant scrotal pain Denies any bleeding issues Also denies chest pain, dyspnea, abdominal pain Review of Systems Review of Systems: All systems reviewed & are unremarkable except as noted in HPI & below Physical Exam Physical Exam: Physical Exam: Vitals signs as noted above General Appearance:Moderately built and nourished, no apparent distress Head: normocephalic, Atraumatic Eyes: normal inspection, EOMI Neck: supple, Trachea midline Respiratory/Chest: Decreased breath sounds, CTA Cardiovascular: S1, S2, + systolic murmur Abdomen/GI:Soft, Non tender, Bowel sounds present Extremities/Musculoskeletal:normal inspection, no edema Neurologic/Psych:AAOX3, grossly no focal neurological deficits Skin: normal color, warm Results & Data Results & Data ([facility]) Vital Signs (Past 12 Hours) Vital Signs Temp Pulse Resp BP BP Pulse Ox 01/03/21 16:15 36.9 C 65 16 95/58 L 96 01/03/21 07:58 36.4 C L 70 16 102/57 L 95 Laboratory Results Short CBC 01/03/21 01/03/21 Range/Units 06:31 16:16 WBC 9.53 (4.8-10.8) K/uL Hgb 8.9 L 9.0 L (14.0-18.0) g/dL Hct 27.8 L 28.6 L (42-52) % Plt Count 298 (130-400) K/uL BMP 01/03/21 06:31 Sodium 143 Potassium 4.0 Chloride 116 H Carbon Dioxide 22 BUN 27 H Creatinine 1.19 Glucose 87 Calcium 8.2 L
[2021-01-03] MEDS: ATORVASTATIN 20 MG TAB PO SCH (20:54)
[2021-01-03] MEDS: TAMSULOSIN HCL 0.4 MG CAP PO SCH (20:56)
[2021-01-03] MEDS: RHOPRESSA: NON-FORMULARY PATIENT'S OWN MED OP SCH (20:57)
[2021-01-03] MEDS: CHOLESTYRAMINE LIGHT 4 GM PKT PO SCH (22:14)
[2021-01-04] MEDS: FERROUS SULFATE 325 MG TAB PO SCH (08:15)
[2021-01-04] MEDS: DUTASTERIDE PO SCH (08:16)
[2021-01-04] MEDS: VERAPAMIL HCL 120 MG TABCR PO SCH (08:16)
[2021-01-04] MEDS: FOLIC ACID 1 MG TAB PO SCH (08:16)
[2021-01-04] MEDS: DULoxetine HCL 30 MG CAP PO SCH (08:16)
[2021-01-04] MEDS: GABAPENTIN 600 MG TAB PO SCH (08:16)
[2021-01-04] MEDS: CYANOCOBALAMIN (VITAMIN B-12) 2,500 MCG TAB.SUBL SL SCH (08:16)
[2021-01-04] MEDS: ADVANCED PROBIOTIC 1250 MG CAPSULE PO SCH (08:17)
[2021-01-04] MEDS: DULoxetine HCL 60 MG CAP PO SCH (08:17)
[2021-01-04] MEDS: ASPIRIN 81 MG ECTAB PO SCH (08:17)
[2021-01-04] MEDS: BRIMONIDINE TARTRATE-P 0.15% 5 ML BTL OPL SCH ×2 (08:18→13:47)
[2021-01-04] MEDS: CHOLECALCIFEROL 1,000 UNITS 25 MCG TAB PO SCH (08:18)
[2021-01-04] MEDS: DORZOLAMIDE/TIMOLOL 22.3/6.8MG/ML 10 ML BTL OP SCH (08:18)
[2021-01-04] MEDS: acetaZOLAMIDE 250 MG TAB PO SCH (08:19)
[2021-01-04] MEDS: BACLOFEN 10 MG TAB PO SCH ×2 (08:23→13:46)
[2021-01-04 08:50] LABS: Folate (Folic Acid) > 20.00 ng/ml (>5.38); Vitamin B12 > 2000 pg/ml (193-986)
[2021-01-04] MEDS ORDERED: CIPROFLOXACIN 500 MG TAB PO SCH (09:00)
--- NOTE | 2021-01-04 10:44 | CT Scan Report ---
CT SCAN OF THE ABDOMEN AND PELVIS WITHOUT CONTRAST CLINICAL HISTORY: Pyelonephritis, Anemia R/O hematoma COMPARISON STUDY: December 27, 2020 TECHNIQUE: CT scan of the abdomen and pelvis was performed from the lung bases to the proximal femurs . Images are reviewed in the axial, sagittal, and coronal planes. IV contrast was not administered fo r this examination. A dose lowering technique was utilized adhering to the principles of ALARA. CT DOSE: 293.14 mGy.cm FINDINGS: Lower chest: Interval worsening of the small left pleural effusion and small atelectasis at the left base. Liver: The unenhanced liver is normal in size, contour, and attenuation. There is no intrahepatic blaine iary ductal dilatation. Gallbladder: Unremarkable. Spleen: Normal in size and attenuation. Pancreas: Unremarkable. Adrenal glands: Unremarkable. Kidneys: The unenhanced kidneys are normal in size without hydronephrosis. Mild perinephric fat stran ding is again seen bilaterally. Previously seen hypoattenuating cortical defect with posterior aspect of the right kidney is again s een however appear less conspicuous due to lack of IV contrast. 4 mm calculus is again seen within left renal pelvis. Previously seen hypoattenuating lesion within l eft renal parenchyma appear less conspicuous due to lack of IV contrast. Left urinary stent is again seen.. Bowel: Small hiatal hernia is seen. Stomach is distended with ingested material. Appendix is not well seen. Extensive stool content is seen within loops of the large bowel. Large amount of stool within the rectum, possible fecal impaction. There is mild fat stranding is seen within the presacral region . There is mild fat stranding surrounding second portion of duodenum and might represent inflammatory p rocess. Peritoneum: There is no intraperitoneal free air or abdominal ascites. Mild diffuse mesenteric edema is seen. Vasculature: The abdominal aorta is normal in course and caliber. Adenopathy: None. Pelvic viscera: Urinary bladder is partially decompressed with mild diffuse thickening of its wall. P rostate gland is not significantly enlarged. Skeletal structures: Mild degenerative changes of the spine. Minimal anterolisthesis of L4 on L5. IMPRESSION: 1. No evidence of hydronephrosis. Stable left nephrolithiasis as well as position of the left urinar y catheter. 2. Previously seen hypoattenuating lesions within right and left renal cortex appear less conspicuou s due to lack of IV contrast. Redemonstration of perinephric edema. 3. Mild fat stranding surrounding second loop of duodenum might represent duodenitis. Evaluation is limited due to lack of IV contrast. 4. Mild interval worsening of the left pleural effusion. Atelectasis at the left base. 5. Possible fecal impaction. Large amount of stool within colonic loops. 6. Mild mesenteric edema. Questionable fat stranding in presacral region without significant thicken ing of rectal wall. Differential diagnosis might include proctitis. Please correlate with clinical pr esentation. 7. The rest of findings as detailed above. ACT 112: Negative or not required by law. The above report was generated using voice recognition software. It may contain grammatical, syntax o r spelling errors. Electronically signed by: Miranda March DO 01/04/2021 10:43 AM
[2021-01-04] MEDS ORDERED: FUROSEMIDE 40 MG in SYRINGE 0 ML IV ONE (12:45)
--- NOTE | 2021-01-04 12:45 | Hospitalist Progress Note ---
Date of Service January 04, 2021 Assessment & Plan (1) Sepsis: (2) Pyelonephritis: Acute pyelonephritis Sepsis Complicated urinary tract infection Pseudomonas aeruginosa bacteremia Acute metabolic encephalopathy -POA H/O recent left stent insertion and TURP procedure --CT ABD:Hypoenhancing focus within the upper pole of the left kidney. This is nonspecific but raise the possibility of pyelonephritis. A renal infarct could appear similar although is less likely given the clinical history. Moderate left perinephric infiltration. Bladder wall thickening with adjacent infiltration could be correlated urinalysis to exclude cystitis. Left ureteral stent in place. No ureteral calculi or fragments. 4 mm left renal calculus. Mild splenomegaly. Trace perisplenic ascites. Trace left pleural effusion. -ECHO: Mild concentric LVH. Left ventricular wall motion is normal. EF 60 to 65%. Mild MR, mild TR, mild pulmonary hypertension is present. The atrial septum is intact with no evidence of ASD. No evidence of valvular vegetation within the scope of managing modality. -Urine, blood culture growing Pseudomonas aeruginosa -IV Zosyn transition to cefepime--continue till 01/03/21 -Completed IV cefepime course>>Transitioned to ciprofloxacin to complete 1 week course as per ID -Appreciate neurology, infectious disease Input -Needs follow-up with urology upon discharge Scrotal swelling Chronic right testicular pain Scrotal USD:No acute sonographic abnormality is seen involving the testes or scrotum. Appreciate urology input Refused nerve block and pain management consult as the past Advised to follow-up with urology as outpatient Scrotal swelling improved (3) Glaucoma: Continue Acetazolamide Anemia of chronic disease H/O Iron deficiency Denies any bleeding issues currently Minimize blood draws Likely due to increased volume Iron studies, vitamin B12, folate levels within normal limits Hemoglobin stable Hypophosphatemia Metabolic acidosis Replace electrolytes as needed Monitor BMP (4) Anxiety: Continue home medications Strokelike symptoms Possible TIA -Head CT: No acute intracranial hemorrhage, no midline shift or space occupying lesions. Mild interval worsening of atrophic changes of brain parenchyma associated with ex vacuo dilatation of ventricles. Small lacunar infarct or prominent perivascular space within right basal ganglia. -Head CTA: No evidence of focal occlusion or aneurysmal dilatation. origin of the left posterior cerebral artery and partial origin of the right posterior cerebral artery (with mild diffuse narrowing of right P1 segment), above-mentioned findings likely represent developmental variant. -Neck CTA:No evidence of hemodynamically significant carotid artery stenosis. Decreased caliber of V4 segments of the right and left vertebral arteries, left worse than right. No focal occlusion seen. No evidence of dissection. -Repeat CT Head:No acute intracranial findings. -MRI Brain: No acute intracranial abnormality. -ECHO as above -Continue aspirin, statin -Given H/O bleeding ulcer in 2018, will avoid Plavix for now -Appreciate neurology input -PT/OT: Prefers to be discharged home with home health -Needs follow-up with neurology upon discharge (5) DVT prophylaxis: SCDs Heparin SQ on hold due to anemia CODE STATUS Full code Disposition Home Admission and Anticipated Discharge Date Admission Date: December 27, 2020 Subjective Patient is seen and examined at bedside No new complaints Eager to get discharged Scrotal swelling continues to improve Denies chest pain, dyspnea, abdominal pain, dizziness, nausea, abd pain Review of Systems Review of Systems: All systems reviewed & are unremarkable except as noted in HPI & below Physical Exam Physical Exam: Physical Exam: Vitals signs as noted above General Appearance:Moderately built and nourished, no apparent distress Head: normocephalic, Atraumatic Eyes: normal inspection, EOMI Neck: supple, Trachea midline Respiratory/Chest: Decreased breath sounds, CTA Cardiovascular: S1, S2, + systolic murmur Abdomen/GI:Soft, Non tender, Bowel sounds present Extremities/Musculoskeletal:normal inspection, no edema Neurologic/Psych:AAOX3, grossly no focal neurological deficits Skin: normal color, warm Results & Data Results & Data ([place]) Vital Signs (Past 12 Hours) Vital Signs Temp Pulse Resp BP Pulse Ox 01/04/21 07:23 36.7 C 56 L 16 95/53 L 95 Laboratory Results Short CBC 01/03/21 01/04/21 Range/Units 16:16 07:36 Hgb 9.0 L 9.0 L (14.0-18.0) g/dL Hct 28.6 L 29.0 L (42-52) %
--- NOTE | 2021-01-04 12:58 | Discharge Summary ---
Date of Service January 04, 2021 Admission HPI Per Admitting Provider 70-year-old male with PMH BPH, nephrolithiasis, dyslipidemia, glaucoma, light chain disease, anxiety, and other problems listed below who presents the ED for evaluation of confusion and fever. On 12/10/2020, patient underwent planned cystoscopy, left ureteroscopy, laser stone destruction, basket stone extraction, and left stent insertion. Patient was also noted to have a large prostate with obstruction with purulent discharge and also underwent TURP. Patient was discharged with coud catheter in place. He was also discharged on a course of cephalexin and Cipro. Catheter was removed on 12/24. Yesterday, patient developed confusion. He was also complaining of mid lower back pain. reports patient was incontinent of urine throughout the night and had a fever of 101.5 this morning with rigors. Patient reports chronic burning with urination which is unchanged from baseline. Urine has been orange in color secondary to taking Pyridium. Denies hematuria. Confusion persisted and patient was brought to the ED for further evaluation. Patient had a very poor appetite however no nausea, vomiting, diarrhea. Denies chest pain shortness of breath. No lightheadedness, dizziness, diaphoresis, syncopal events. In the ED, patient had low-grade temp 37.7, tachycardia, WBC 26K. BP stable, lactic acid normal. CT ABD/pelvis shows signs of left-sided pyelonephritis. Patient was given p.o. ciprofloxacin, IV vancomycin, IVF. Admission Exam Per Admitting Provider Physical Exam Constitutional: WD/WN, vitals as above Eyes: PERRL, conjunctivae normal, anicteric sclerae ENMT: external ear and nose normal, oropharynx normal Respiratory: normal respiratory effort, lungs clear to auscultation Cardiovascular: Rate/Rhythm: regular rate and regular rhythm Heart Sounds: + murmur (Grade 3/6, systolic) Vessels: normal peripheral pulses Extremities: no edema Gastrointestinal (Abdomen): normal bowel sounds, soft, nontender, no hepatosplenomegaly Musculoskeletal: no cyanosis or clubbing, extremities motor strength 5/5 Skin: no rashes Warm and clammy Neurologic: PERRL, EOMI, accommodation nl, no face palsy, no dysarthria Psychiatric: A+Ox3, euthymic affect Forgetful Genitourinary: no CVA tenderness Principal Diagnosis Acute pyelonephritis Sepsis Complicated urinary tract infection Pseudomonas aeruginosa bacteremia Acute metabolic encephalopathy Transient Ischemic attack Discharge Data Allergies Allergy/AdvReac Type Severity Reaction Status Date / Time doxycycline Allergy Mild Vomiting Verified 12/27/20 12:59 trazodone AdvReac Intermediate DISORIENTED Verified 12/27/20 12:59 NSAIDS (Non-Steroidal AdvReac Mild had Verified 12/27/20 12:59 Anti-Inflamma bleeding ulcer Consultations 12/27/20 12:49 ED Decision to Admit Stat 12/27/20 15:26 Consult Urology Routine 12/28/20 18:27 Consult Neurology Routine 12/29/20 15:17 Consult Infectious Diseases Routine Procedures Performed --CT ABD:Hypoenhancing focus within the upper pole of the left kidney. This is nonspecific but raise the possibility of pyelonephritis. A renal infarct could appear similar although is less likely given the clinical history. Moderate left perinephric infiltration. Bladder wall thickening with adjacent infiltration could be correlated urinalysis to exclude cystitis. Left ureteral stent in place. No ureteral calculi or fragments. 4 mm left renal calculus. Mild splenomegaly. Trace perisplenic ascites. Trace left pleural effusion. -ECHO: Mild concentric LVH. Left ventricular wall motion is normal. EF 60 to 65%. Mild MR, mild TR, mild pulmonary hypertension is present. The atrial septum is intact with no evidence of ASD. No evidence of valvular vegetation within the scope of managing modality. Scrotal USD:No acute sonographic abnormality is seen involving the testes or scrotum. -Head CT: No acute intracranial hemorrhage, no midline shift or space occupying lesions. Mild interval worsening of atrophic changes of brain parenchyma associated with ex vacuo dilatation of ventricles. Small lacunar infarct or prominent perivascular space within right basal ganglia. -Head CTA: No evidence of focal occlusion or aneurysmal dilatation. origin of the left posterior cerebral artery and partial origin of the right pos terior cerebral artery (with mild diffuse narrowing of right P1 segment), above- mentioned findings likely represent developmental variant. -Neck CTA:No evidence of hemodynamically significant carotid artery stenosis. Decreased caliber of V4 segments of the right and left vertebral arteries, left worse than right. No focal occlusion seen. No evidence of dissection. Ordered Studies 12/27/20 11:20 CT abd pelvis IV con only Stat 12/28/20 17:27 CT head/brain wo con Stat 12/28/20 17:29 CT angio head w con Stat CT angio neck with con Stat 12/29/20 16:43 CT head/brain wo con Routine 12/30/20 00:00 MR brain wo con Routine 12/31/20 12:59 US scrotum/testicle Routine 01/04/21 09:25 CT abd pelvis wo con Urgent Hospital Course (1) Sepsis: (2) Pyelonephritis: Acute pyelonephritis Sepsis Complicated urinary tract infection Pseudomonas aeruginosa bacteremia Acute metabolic encephalopathy -POA H/O recent left stent insertion and TURP procedure --CT ABD:Hypoenhancing focus within the upper pole of the left kidney. This is nonspecific but raise the possibility of pyelonephritis. A renal infarct could appear similar although is less likely given the clinical history. Moderate left perinephric infiltration. Bladder wall thickening with adjacent infiltration could be correlated urinalysis to exclude cystitis. Left ureteral stent in place. No ureteral calculi or fragments. 4 mm left renal calculus. Mild splenomegaly. Trace perisplenic ascites. Trace left pleural effusion. -ECHO: Mild concentric LVH. Left ventricular wall motion is normal. EF 60 to 65%. Mild MR, mild TR, mild pulmonary hypertension is present. The atrial septum is intact with no evidence of ASD. No evidence of valvular vegetation within the scope of managing modality. -Urine, blood culture growing Pseudomonas aeruginosa -IV Zosyn transition to cefepime--continue till 01/03/21 -Completed IV cefepime course>>Transitioned to ciprofloxacin to complete 1 week course as per ID -Appreciate neurology, infectious disease Input -Needs follow-up with urology upon discharge Scrotal swelling Chronic right testicular pain Scrotal USD:No acute sonographic abnormality is seen involving the testes or scrotum. Appreciate urology input Refused nerve block and pain management consult as the past Advised to follow-up with urology as outpatient Scrotal swelling improved (3) Glaucoma: Continue Acetazolamide Anemia of chronic disease H/O Iron deficiency Denies any bleeding issues currently Minimize blood draws Likely due to increased volume Iron studies, vitamin B12, folate levels within normal limits Hemoglobin stable Hypophosphatemia Metabolic acidosis Replace electrolytes as needed Monitor BMP (4) Anxiety: Continue home medications Strokelike symptoms Possible TIA -Head CT: No acute intracranial hemorrhage, no midline shift or space occupying lesions. Mild interval worsening of atrophic changes of brain parenchyma associated with ex vacuo dilatation of ventricles. Small lacunar infarct or prominent perivascular space within right basal ganglia. -Head CTA: No evidence of focal occlusion or aneurysmal dilatation. origin of the left posterior cerebral artery and partial origin of the right posterior cerebral artery (with mild diffuse narrowing of right P1 segment), above-mentioned findings likely represent developmental variant. -Neck CTA:No evidence of hemodynamically significant carotid artery stenosis. Decreased caliber of V4 segments of the right and left vertebral arteries, left worse than right. No focal occlusion seen. No evidence of dissection. -Repeat CT Head:No acute intracranial findings. -MRI Brain: No acute intracranial abnormality. -ECHO as above -Continue aspirin, statin -Given H/O bleeding ulcer in 2018, will avoid Plavix for now -Appreciate neurology input -PT/OT: Prefers to be discharged home with home health -Needs follow-up with neurology upon discharge (5) DVT prophylaxis: SCDs Heparin SQ on hold due to anemia CODE STATUS Full code Disposition Home Total Time Total Time Spent Total Time Spent (In Minutes): 45 minutes Total Time Includes: Examination of the Patient, Discharge Planning, Medication Reconciliation, Communication With Other Providers and Other Discharge Plan Discharge Items Patient Disposition: Home - Home Health Services Reason For Visit: SEPSIS,PYELONEPHRITIS Discharge Diagnosis: Acute pyelonephritis Sepsis Complicated urinary tract infection Pseudomonas aeruginosa bacteremia Acute metabolic encephalopathy Transient Ischemic attack Activity: Per Instructions section Exercise/Sports: Gradually increase as tolerated Non-emergency contact: Primary Care Provider, Neurologist and Urologist Call non-emergency contact if: you have any medication questions, your symptoms worsen, your pain is not controlled, your pain is concerning for you and you have a fever Follow-up/Referrals: Shelli Brito PA-C [Physician Dividing Machine Operator] - (Date & Time 03/19/2021 11:20 AM Provider Shelli Brito PA-C Department Neurology [facility] ) Yulissa Elliott MD [Primary Care Provider] - (Date & Time 01/08/2021 9:00 AM Provider Mera Lozada MD Department General Internal Medicine [facility] ) Diet: Heart Healthy Addtl Attending Provider Instructions: Follow-up with your primary care physician in 1 week Follow-up with your urologist Dr. Montez in 1-2 weeks Follow-up with your neurologist Dr. Flannery in 8 weeks Complete antibiotic course ciprofloxacin as recommended by your infectious disease specialist. Seek immediate medical attention if your symptoms reoccur or worsen Please take all medications as instructed on discharge list below. Please call if you have any questions or problems. You can reach a [facility] hospitalist on duty at [facility] 24 hours a day by calling [phone] Risk Factors for Stroke: You can reduce your chances of stroke by working with your medical provider to adopt a healthy lifestyle. Some specific ways to lower your chance of stroke are: * If you are a smoker, now is the time to stop smoking cigarettes * If you are diabetic, improve the control of your blood sugars * Avoid excessive amounts of alcohol * Control high blood pressure * Lose weight if you are overweight * Be sure to lead an active lifestyle * Eat a healthy diet low in salt, cholesterol and fat You should know about other risk factors for stroke that you are unable to control. These include: * Age 55 years or older * Male gender * Certain racial groups: , or / * Family History of Stroke, Mini stroke or Heart Attack * Sickle Cell Disease Follow Up: It is important for you to keep your follow up appointments with your medical provider. Who to Call and When: Medical Emergencies: Call 911 immediately if you experience any of the following warning signs and symptoms of Stroke: * Sudden numbness or weakness of the face, arm or leg, especially on one side of the body * Sudden confusion, trouble speaking or understanding * Sudden trouble seeing in one or both eyes * Sudden trouble walking, dizziness, loss of balance or coordination * Sudden severe headache with no cause Do not delay calling 911 if you experience any warning signs or symptoms of a stroke. Delay in seeking medical attention may affect what treatments can be given to you. . Pending Studies at Discharge: No Stand-Alone Forms: My [facility], Smoking Cessation Medications and DC Order Prescriptions: New ciprofloxacin HCl 500 mg Tablet 500 mg PO BID Qty: 14 RF: 0 aspirin 81 mg Tablet,Delayed Release (Dr/Ec) 81 mg PO QAM Qty: 30 RF: 1 Advanced Probiotic 625 mg (10 billion cell) Capsule 2 cap PO DAILY Qty: 30 RF: 0 furosemide [Lasix] 20 mg tablet 20 mg PO DAILY Qty: 3 RF: 0 Continued atorvastatin 20 mg tablet 20 mg PO HS RF: 0 acetazolamide 250 mg tablet 250 mg PO QAM RF: 0 folic acid 1 mg tablet 1 mg PO QAM RF: 0 cholestyramine (with sugar) 4 gram powder 4 gm PO HS RF: 0 cyanocobalamin (vitamin B-12) 5,000 mcg tablet,disintegrating 5,000 mcg PO QAM RF: 0 gabapentin 600 mg tablet 600 mg PO BID RF: 0 duloxetine 60 mg capsule,delayed release(DR/EC) 60 mg PO QAM RF: 0 baclofen 10 mg tablet 10 mg PO TID RF: 0 cholecalciferol (vitamin D3) 25 mcg (1,000 unit) capsule 4,000 unit PO QAM RF: 0 vitamin E (dl, acetate) 100 unit capsule 450 unit PO QAM RF: 0 coenzyme Q10 200 mg capsule 200 mg PO QAM RF: 0 dorzolamide-timolol [Cosopt] 22.3-6.8 mg/mL drops 1 drops OP BID RF: 0 oxycodone-acetaminophen [Percocet] 5-325 mg tablet 1 tab PO Q8H PRN (Reason: pain) Qty: 7 RF: 0 Alphagan P 0.1 % drops 1 drp OPL TID RF: 0 ferrous sulfate [Feosol] 325 mg (65 mg iron) tablet 325 mg PO QAM RF: 0 phenazopyridine 200 mg tablet 200 mg PO TID PRN (Reason: pain) 3 Days Qty: 9 RF: 11 zolpidem [Ambien] 10 mg Tablet 10 mg PO HS RF: 0 sildenafil 100 mg Tablet 20 mg PO DAILY PRN (Reason: sexual actvitiy) RF: 0 calcium citrate-vitamin D3 315 mg-5 mcg (200 unit) Tablet 1 tab PO QAM RF: 0 tamsulosin [Flomax] 0.4 mg capsule 0.8 mg PO QPM RF: 0 dutasteride 0.5 mg capsule 0.5 mg PO QAM RF: 0 vitamin B complex Capsule 1 cap PO QAM RF: 0 oxybutynin chloride 5 mg tablet 5 mg PO Q8H PRN (Reason: bladder spasms) Qty: 20 RF: 0 verapamil 120 mg tablet extended release 120 mg PO QAM RF: 0 duloxetine 30 mg capsule,delayed release(DR/EC) 30 mg PO QAM RF: 0 [place] 3-6-9 1,200 mg Capsule 1 cap PO QAM RF: 0 Discharge Orders: Discharge Order (Routine); Ordered 01/04/21 Ordered By: Kendell Beaver/Other Patient Handouts: What Is a TIA?, Kidney Infec Dc Admission Data Admit Date/Time: 12/27/20 13:04 Attending Provider: Kendell Ross Admit Provider: Matt Jaramillo Primary Care Provider: Yulissa Elliott Other Providers: Matt Jaramillo ; Sahil Espinosa ; Rodri Goyal ; Wyatt Echavarria ; Becky Jefferson ; Yasir Montez ; Christin Banuelos ; Rochelle Bills ; Mihaela Mittal ; Martin Harley ; Cassidy Obrien ; Kelsey Mittal ; Shayan Burciaga ; Kunal Villarreal ; Milind Mendiola ; Francisco Arnold I. ; Cristi Linton II ; Genna Baxter ; Mj Borden ; [facility] Other Interventions: Discharge Summary Assessment (RN) Last Done: 01/04/21 13:01
--- NOTE | 2021-01-25 06:13 | Coding Query ---
CODING QUERY To promote full compliance with coding requirements relating to patient care, provider participation is requested in all cases of mangle press catcher uncertainty. Please assist us with the question(s) below: Coding Question(s): Please clarify if TIA was present or ruled out. Physician's Response(s): TIA present Thank you Ambreen Curtis Principal Diagnosis: "that condition established after study, to be chiefly responsible for occasioning the admission of the patient to the hospital for care." Co-Existing Principal Diagnosis: "when two or more diagnoses equally meet the criteria for principal diagnosis as determined by the circumstances of admission, diagnostic work up, and/or therapy provided, and the Alphabetic Index, Tabular List, or another coding guideline does not provide sequencing direction, any one of the diagnoses may be sequenced first." "When the physician has documented what appears to be a current diagnosis in the body of the record, but has not included the diagnosis in the final diagnostic statement, the physician should be asked whether the diagnosis should be added." (Source Coding [facility] 2 QTR90. p3-4) ANNA
== END 2021-01-04 14:30 | disposition home health service (06) | DRG 698 ==
LOC: ED 10:19 → 2S 13:04 → SUATTDRO 13:04 → 2S 15:05 → 3N 01-02 18:09